=== PATIENT | female | born 1985 | race Caucasian/White ===

== ENCOUNTER 2020-12-10 09:29 | Outpatient (REF) | payer OTHER, SELFPAY ==
[2020-12-10 11:33] LABS: MANUAL DIFF FLAG NO
[2020-12-10 11:40] LABS: Basophils Percent Auto 0.4 % (0-2); Eosinophils Absolute Auto 0.1 X10*3/uL (0.0-0.4); Eosinophils Percent Auto 2.5 % (0-4); Hematocrit 42.3 % (37-47); Hemoglobin 13.7 g/dl (12.0-16.0); Imm Gran Abs Auto 0.01 X10*3/uL (0.00-0.03); Imm Gran Pct Auto 0.2 % (0.0-0.4); Lymphocytes Percent Auto 41.6 % (20-40); Mean Corpuscular HGB Conc 32.4 g/dl (31.0-35.0); Mean Corpuscular Volume 92.8 fL (80-98); Mean Platelet Volume 11.3 fL (9.4-12.3); Monocytes Absolute Auto 0.5 X10*3/uL (0.1-1.2); Monocytes Percent Auto 9.5 % (2-11); Neutrophils Absolute Auto 2.2 X10*3/uL (2.0-8.3); Neutrophils Percent Auto 45.8 % (45-73); Platelet Count 168 X10*3/uL (160-400); Red Blood Count 4.56 X10*6/uL (4.20-5.50); Red Cell Distribution Width 12.7 % (11.0-16.0); White Blood Count 4.9 X10*3/uL (4.8-10.8)
[2020-12-10 11:49] LABS: INTERNATIONAL NORM RATIO 1.1 (0.9-1.1); Prothrombin Time 13.4 SEC (10.8-13.0)
[2020-12-10 11:54] LABS: Alanine Aminotransferase 144 U/L (0-31); Albumin Level 4.1 g/dL (3.5-5.0); Alkaline Phosphatase 76 U/L (39-117); Anion Gap 12 (12-20); Aspartate Amino Transferase 72 U/L (5-31); Bilirubin Direct 0.2 mg/dL (0.0-0.5); Bilirubin Total 0.4 mg/dL (0.0-1.0); Blood Urea Nitrogen 12 mg/dL (9-16); Calcium 8.7 mg/dL (8.4-10.2); Carbon Dioxide 31 mmol/L (22-29); Chloride 102 mmol/L (96-108); Estimated Glomerular Filt Rate > 60; Gamma Glutamyl Transpeptidase 51 U/L (7-33); Glucose Fasting 82 mg/dL (60-99); Potassium 4.7 mmol/l (3.3-5.1); Sodium 140 mmol/L (135-145); Total Protein 7.1 g/dL (6.5-8.0)
[2020-12-10 12:00] LABS: Anion Gap 11 (12-20); Blood Urea Nitrogen 12 mg/dL (9-16); Calcium 9.1 mg/dL (8.4-10.2); Carbon Dioxide 31 mmol/L (22-29); Chloride 101 mmol/L (96-108); Cholesterol 192 mg/dL; Estimated Glomerular Filt Rate > 60; Glucose Fasting 83 mg/dL (60-99); HDL Cholesterol 68 mg/dL; LDL Cholesterol Calculated 110 mg/dl; Potassium 4.8 mmol/l (3.3-5.1); Sodium 138 mmol/L (135-145); Triglycerides 73 mg/dL
[2020-12-10 12:09] LABS: HIV AB/AG Nonreactive (Nonreactive); HIV Num 1 0.09 S/CO (0.00-0.99)
[2020-12-10 12:11] LABS: HBsAGNum1 0.16 S/CO (0.00-0.99); Hepatitis B Surface Antigen Negative (Negative)
[2020-12-10 12:22] LABS: TSH reflex Free T4 1.62 mIU/mL (0.32-4.0)
[2020-12-12 07:33] LABS: Hepatitis A Antibody IgG REACTIVE (Nonreactive)
== END 2020-12-10 09:30 | disposition home or self-care (01) ==
LOC: HO.HMGCLDS 09:29
PROVIDERS: PCP Internal Medicine; Visit Provider Internal Medicine
DX: F11.20 Opioid dependence, uncomplicated (principal)
CPT/HCPCS: 36415; 80048; 80053; 80061; 80076; 82248; 82977; 84443; 85025; 85610; 86708; 87340; 87389; 87522

== ENCOUNTER → 2021-02-12 14:17 | Outpatient (BNVA) | payer OTHER, SELFPAY | PROVIDERS: PCP Internal Medicine; Visit Provider Nurse Practitioner ==

== ENCOUNTER 2021-02-19 14:38 | Outpatient (REF) | payer OTHER, SELFPAY ==
--- NOTE | ~2021-02-19 | US_ITS ---
EXAMINATION: US COMPLETE ABDOMEN WITH LIVER ELASTOGRAPHY CLINICAL INFORMATION: B18.2 - Chronic viral hepatitis C. Age 35. COMPARISON: None. TECHNIQUE: Real-time imaging of the abdominal viscera. Noninvasive ultrasound liver fibrosis assessment is performed using Jac ElastPQ point quantification shear wave elastography (pSWE) with a C5-2 MHz transducer. Multiple elastography samples are obtained. FINDINGS: PANCREAS: The visualized pancreas is normal in size and contour and echogenicity. The pancreatic tail and distal body are obscured by bowel gas and not completely imaged. No visible pancreatic ductal distention. ABDOMINAL AORTA: The proximal, middle, and distal aortic segments are normal in caliber. INFERIOR VENA CAVA: Visualized portions are normal. LIVER: The liver is normal in size and smooth in contour. The parenchymal echogenicity is within normal. No definite hepatic steatosis. There is no visible focal hepatic parenchymal lesion or intrahepatic ductal dilatation. The right lobe measures 16.2 cm in length. The left lobe measures 10.0 cm in length. Portal flow is towards the liver (hepatopetal). Shear wave liver elastography median stiffness is 1.81 m/s (reference: normal median stiffness is 1.3 m/s or less). IQR/median stiffness to assess sampling precision is 0.08 (reference: good quality data set is IQR/median stiffness of 0.15 or less). GALLBLADDER: Normal. The gallbladder is physiologically distended without evidence of stones, sludge, polyps, wall thickening or pericholecystic fluid. COMMON BILE DUCT: Normal in caliber measuring 0.5 cm in diameter. RIGHT KIDNEY: Normal. No hydronephrosis. No renal calculi or focal parenchymal lesions. The kidney measures 11.0 cm in maximum dimension. LEFT KIDNEY: Normal. No hydronephrosis. No renal calculi or focal parenchymal lesions. The kidney measures 11.9 cm in maximum dimension. SPLEEN: Normal. The spleen measures 12.5 cm in maximum dimension. FREE FLUID: None. US/US abdomen comp w elastography IMPRESSION: 1. Liver normal in size and smooth in contour. No visible hepatic parenchymal lesion. 2. Portal flow towards the liver. Spleen normal in size. No ascites. 3. Liver elastography: Measurements are suggestive of compensated advanced chronic liver disease but need further test for confirmation. REFERENCE: Society of Radiologists in Ultrasound Liver Stiffness Thresholds (2019): LIVER STIFFNESS THRESHOLDS: *Liver Stiffness equal or less than 1.3 m/s: High probability of being normal. *Liver Stiffness less than 1.7 m/s: In the absence of other known clinical signs, rules out compensated advanced chronic liver disease. *Liver Stiffness 1.7-2.1 m/s: Suggestive of compensated advanced chronic liver disease but need further test for confirmation. *Liver Stiffness over 2.1 m/s: Rules in compensated advanced chronic liver disease. *Liver Stiffness over 2.4 m/s: Suggestive of clinically significant portal hypertension. QUALITY OF DATA SET: *IQR/Median value equal or less than 0.15 implies a quality data set. *IQR/Median value over 0.15 implies a poor quality data set. SIGNIFICANT CHANGE FROM PRIOR EXAM: Significant change if liver stiffness measurement is 10% or greater from prior exam. OTHER CONSIDERATIONS: The stage of liver fibrosis may be overestimated in the setting of acute hepatitis, liver inflammation, elevated liver function tests, hepatic vascular congestion, obstructive cholestasis, non-fasting state, and infiltrative diseases such as amyloidosis and lymphoma. In some patients with NAFLD, the liver stiffness thresholds for compensated advanced chronic liver disease may be lower. In causes other than viral hepatitis and NAFLD, liver stiffness thresholds are not well established.
[2021-02-19 17:53] LABS: Ferritin 68 ng/mL (10-122)
[2021-02-20 08:35] LABS: HBS Num1 > 1000.00 mIU/mL (0-7.99); HBc Num1 0.08 S/CO (0.00-0.79); Hepatitis B Core Antibody Nonreactive (Nonreactive); ~Hepatitis B Surface Antibody REACTIVE (Nonreactive)
[2021-02-20 11:52] LABS: Alpha Fetoprotein 5.1 ng/mL
[2021-02-20 13:27] LABS: Anti Nuclear Antibody Screen NEGATIVE (NEGATIVE)
[2021-02-21 11:47] LABS: Mitochondrial Antibodies NEGATIVE (NEGATIVE)
[2021-02-25 12:36] LABS: Smooth Muscle Antibody <20 U (<20)
[2021-02-27 11:07] LABS: Hepatitis C Genotype 3
== END 2021-02-19 14:39 | disposition home or self-care (01) ==
LOC: HO.US 14:38
PROVIDERS: PCP Internal Medicine; Visit Provider Nurse Practitioner
DX: B18.2 Chronic viral hepatitis C (principal)
CPT/HCPCS: 36415; 76705; 76981; 82105; 82728; 86038; 86039; 86255; 86256; 86704; 86706; 87902

== ENCOUNTER → 2021-02-28 09:03 | Outpatient (BNVA) | payer OTHER, SELFPAY | PROVIDERS: PCP Internal Medicine; Visit Provider Nurse Practitioner ==

== ENCOUNTER → 2021-04-03 13:16 | Outpatient (BNVA) | payer OTHER, SELFPAY | PROVIDERS: Visit Provider Nurse Practitioner ==

== ENCOUNTER 2021-04-26 09:10 | Outpatient (REF) | payer OTHER, SELFPAY ==
[2021-04-26 10:04] LABS: MANUAL DIFF FLAG NO
[2021-04-26 10:20] LABS: Basophils Percent Auto 0.3 % (0-2); Eosinophils Absolute Auto 0.1 X10*3/uL (0.0-0.4); Eosinophils Percent Auto 0.9 % (0-4); Hematocrit 43.2 % (37-47); Hemoglobin 14.5 g/dl (12.0-16.0); Imm Gran Abs Auto 0.02 X10*3/uL (0.00-0.03); Imm Gran Pct Auto 0.3 % (0.0-0.4); Lymphocytes Percent Auto 24.8 % (20-40); Mean Corpuscular HGB Conc 33.6 g/dl (31.0-35.0); Mean Corpuscular Volume 89.4 fL (80-98); Mean Platelet Volume 10.8 fL (9.4-12.3); Monocytes Absolute Auto 0.7 X10*3/uL (0.1-1.2); Monocytes Percent Auto 8.3 % (2-11); Neutrophils Absolute Auto 5.2 X10*3/uL (2.0-8.3); Neutrophils Percent Auto 65.4 % (45-73); Platelet Count 200 X10*3/uL (160-400); Red Blood Count 4.83 X10*6/uL (4.20-5.50); Red Cell Distribution Width 12.7 % (11.0-16.0); White Blood Count 7.9 X10*3/uL (4.8-10.8)
[2021-04-26 10:42] LABS: Alanine Aminotransferase 24 U/L (0-31); Albumin Level 4.2 g/dL (3.5-5.0); Alkaline Phosphatase 81 U/L (39-117); Anion Gap 13 (12-20); Aspartate Amino Transferase 15 U/L (5-31); Bilirubin Total 0.7 mg/dL (0.0-1.0); Blood Urea Nitrogen 10 mg/dL (9-16); Calcium 9.1 mg/dL (8.4-10.2); Carbon Dioxide 19 mmol/L (22-29); Chloride 109 mmol/L (96-108); Estimated Glomerular Filt Rate > 60; Glucose Random 124 mg/dL (60-115); Sodium 137 mmol/L (135-145); Total Protein 7.5 g/dL (6.5-8.0)
[2021-04-28 13:52] LABS: HCV Log PCR <1.18 DETECTED Log IU/mL (NOT DETECTED); HepC Viral Load <15 DETECTED IU/mL (NOT DETECTED)
[2021-05-10 12:16] LABS: FIB-ALT 20 U/L (6-29); FIB-Alpha-2-Macroglobulin 275 mg/dL (106-279); FIB-Apolipoprotein A1 173 mg/dL (101-198); FIB-GGT 28 U/L (3-50); FIB-Haptoglobin 106 mg/dL (43-212); FIB-Total Bilirubin 0.6 mg/dL (0.2-1.2); Liver Fibrosis Score 0.19; Liver Fibrosis Stage F0; Nec Inflam Act Grade A0; Nec Inflam Act Score 0.07
== END 2021-04-26 09:11 | disposition home or self-care (01) ==
LOC: HO.LAB 09:10
PROVIDERS: PCP Internal Medicine; Visit Provider Nurse Practitioner
DX: B18.2 Chronic viral hepatitis C (principal)
CPT/HCPCS: 36415; 80053; 81596; 85025; 87522

== ENCOUNTER 2022-01-02 11:01 | Inpatient (IN) | payer OTHER, SELFPAY ==
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
--- NOTE | 2022-01-02 15:09 | PM.EVENT ---
Event Note Date of Service: 01/02/22 Event Note: attempted to see patient at 3:10 pm today accompanied with RN to do medical history and physical however patient declined to be seen since she feels somebody is here to kill her, made several attempts to engage her however she became more agitated therefore left the room. reviewed patient med rec patient has history of hepatitis-C and substance abuse no new labs available
--- NOTE | 2022-01-02 15:13 | PC.NURSE ---
Pt lying in bed, secondary to mental status, pt refused to participate in admission process, refused V/S's, refused to meet with med consult MD Dr Pina (pt from another outside hospital).
[2022-01-02] MEDS: diphenhydrAMINE HCL 25 MG TABLET 50 MG PO (16:00)
[2022-01-02] MEDS: HaloperidoL 5 MG TABLET PO (16:01)
[2022-01-02] MEDS: LORazepam 1 MG TABLET PO (16:01)
[2022-01-02 16:24] VITALS: BP 123/78; PULSE 69; RESP 18; TEMP 35.8; O2SAT 100
[2022-01-02 17:03] VITALS: BMI 48.4
[2022-01-02 18:00] VITALS: BP 128/82; PULSE 74; RESP 18; TEMP 36.1; O2SAT 100
[2022-01-02] MEDS: OLANZapine 10 MG TABLET PO (20:44)
[2022-01-02] MEDS: Gabapentin 600 MG TABLET PO (20:45)
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
[2022-01-03 08:45] VITALS: BP 164/55; PULSE 65; TEMP 37.2
[2022-01-03] MEDS: Gabapentin 600 MG TABLET PO ×3 (09:00→20:33)
[2022-01-03] MEDS: OLANZapine 10 MG TABLET PO ×2 (09:00→20:33)
[2022-01-03 09:11] LABS: Cholesterol 164 mg/dL; HDL Cholesterol 40 mg/dL; LDL Cholesterol Calculated 105 mg/dl; Triglycerides 95 mg/dL
[2022-01-03 09:14] LABS: Estimated Average Glucose 103 mg/dL; Hemoglobin A1c % 5.2 %
[2022-01-03 09:32] LABS: Free T4 (Free Thyroxine) 0.95 ng/dL (0.71-1.85)
[2022-01-03 10:08] LABS: Folate 14.6 ng/mL (> or = 4.0); Vitamin B12 347 pg/mL (200-900)
--- NOTE | 2022-01-03 15:36 | PM.EVENT ---
Event Note Date of Service: 01/03/22 Event Note: Addiction Note: Chart reviewed, including documentation from transferring facility. Patient with reported history of OUD, and Suboxone treatment most recently 09/2021 UDS at hospital was negative for any opioids including, buprenorphine, methadone, or fentanyl. At admission to other facility she denied any recent opioid use Currently patient is displaying symptoms of psychosis and not appropriate to eval for ELVIN treatment at this time. No evidence or concern for acute withdrawal at this time. Discussed with attending provider, and will follow up once symptoms more stable.
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
[2022-01-03 18:00] VITALS: BP 121/78; PULSE 69; RESP 18; TEMP 35.9; O2SAT 99
[2022-01-04] MEDS: OLANZapine 10 MG TABLET PO ×2 (08:54→21:18)
[2022-01-04] MEDS: Gabapentin 600 MG TABLET PO ×3 (08:54→21:18)
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
[2022-01-04 16:30] VITALS: BP 101/57; PULSE 97; TEMP 36.8
[2022-01-05] MEDS: Gabapentin 600 MG TABLET PO ×3 (08:16→21:09)
[2022-01-05] MEDS: OLANZapine 10 MG TABLET PO ×2 (08:16→21:14)
[2022-01-05] MEDS: Nicotine 21 MG PATCH.TD24 TRANSDERMA (08:16)
--- NOTE | 2022-01-05 14:54 | P.PNPSI_ITS ---
Subjective Subjective Date of Service: 01/05/22 Reason For Visit: Major Depression/SI Interim History: Patient seen and discussed with team. 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 Sleep is okay. Pt refers to herself with the pronound we. States we get hungry a lot, we're glad that there are crackers here. Energy is okay, sleeping less today. Not going to groups because she says everybody thinks I was a racist because I was in the [facility] in a past life. Pt is unkempt, poor hygiene, says we're thinking about taking a shower but she is scared people are gonna wanna steal our clothes and she is nervous about doing laundry. States ativans and poisonous haldol helps with the demons. In the milieu, patient is safe, somewhat more visible in the unit, bizarre in behavior. Denies SI/SIB/HI upon inquiry. Denies irritability or assaultive ideation. Says she feels safe. Medication Compliance: Yes Side effects from medications: No Attending Groups: No Review of Systems Acute medical concerns: No Medical Review of Systems: unchanged Mental Status Exam Mental Status Exam Narrative: Patient Appearance:?Fatigued Patient Orientation:?Person and Situation Level of Consciousness:?Drowsy, Sedated and Alert Patient Behavior:?Guarded, Talkative, Cooperative, Suspicious, Anxious, Fearful, Resistive to Care, Avoidant, Fatigued, Distractible, Isolative, Good Eye Contact and Poor Eye Contact Mood Description:?Suspicious and Withdrawn Affect Description:?Suspicious, Withdrawn and Flat Patient Cognition Impaired:?No Ability to Follow Directions:?Fair Speech Pattern:?Spontaneous Speech, Rambling and Soft-Spoken Memory Description:?Remote Impaired and Episodic Impaired Hallucinations:?Auditory Delusions:?Paranoid Ideation Perceptual Disturbances:?Depersonalization and Derealization Thought Process:?Illogical, Distracted and Evasive Thought Content:?positive for Flight of Ideas, positive for Racing, positive for Loose Associations and positive for Suicidal Ideation Depressive Symptoms:?Increased Anxiety, Increased Irritability, Hopelessness, Unhappiness, Thoughts of /Suicide and Difficulty Concentrating Abnormal Motor Activity Signs and Symptoms:?Restlessness Judgment:?Poor Diagnostics Vital Signs (24Hr): Vital Signs - 24 hr 01/04/22 16:30 Temperature 98.2 F Pulse Rate 97 Blood Pressure 101/57 L BMI result Verdana 4 Body Mass Index Verdana 4 48.4 Verdana 4 Verdana 4 Medications Medications Current Medications Acetaminophen (Acetaminophen 325 Mg Tablet) 650 mg PO Q6H PRN PRN Reason: Headache/Pain Mild Scale (1-3) Al Hydroxide/Mg Hydroxide (Magnesium Hydrox/Alum Hydrox 30 Ml Oral.Susp) 30 ml PO Q6H PRN PRN Reason: Heartburn/Nausea Clonidine HCl (Clonidine Hcl 0.1 Mg Tablet) 0.1 mg PO TID PRN; Protocol PRN Reason: anxiety Diphenhydramine HCl (Diphenhydramine Hcl 25 Mg Tablet) 50 mg PO Q4H PRN PRN Reason: agitation, aggression Last Admin: 01/02/22 16:00 Dose: 50 mg Documented by: Gabapentin (Gabapentin 600 Mg Tablet) 600 mg PO TID [facility] Last Admin: 01/05/22 14:29 Dose: 600 mg Documented by: Haloperidol (Haloperidol 5 Mg Tablet) 5 mg PO Q4H PRN PRN Reason: psychotic agitation aggression Last Admin: 01/02/22 16:01 Dose: 5 mg Documented by: Hydroxyzine HCl (Hydroxyzine Hcl 25 Mg Tablet) 25 mg PO BEDTIME PRN PRN Reason: Anxiety Hydroxyzine HCl (Hydroxyzine Hcl 50 Mg Tablet) 50 mg PO Q6H PRN PRN Reason: Anxiety Lorazepam (Lorazepam 1 Mg Tablet) 1 mg PO Q4H PRN PRN Reason: agiation Last Admin: 01/02/22 16:01 Dose: 1 mg Documented by: Magnesium Hydroxide (Milk Of Magnesia 30 Ml Oral.Susp) 30 ml PO DAILY PRN PRN Reason: Constipation Nicotine (Nicotine 21 Mg Patch.Td24) 21 mg TRANSDERMA DAILY [facility] Last Admin: 01/05/22 08:16 Dose: 21 mg Documented by: Nicotine Polacrilex (Nicotine Polacrilex 2 Mg Gum) 4 mg BUCCAL Q1H PRN PRN Reason: Nicotine Cravings Olanzapine (Olanzapine 10 Mg Tablet) 10 mg PO BID [facility] Last Admin: 01/05/22 08:16 Dose: 10 mg Documented by: Trazodone HCl (Trazodone Hcl 50 Mg Tablet) 50 mg PO BEDTIME PRN PRN Reason: Insomnia Allergies Allergies Allergy/AdvReac Type Severity Reaction Status Date / Time No Known Allergies Allergy Verified 04/03/21 13:22 Assessment & Plan Assessment & Plan (1) PTSD (post-traumatic stress disorder): Status: Acute Code(s): F43.10 - Post-traumatic stress disorder, unspecified (2) Mood disorder with psychosis: Status: Acute Code(s): F39 - Unspecified mood [affective] disorder (3) Polysubstance abuse: Status: Acute Code(s): F19.10 - Other psychoactive substance abuse, uncomplicated Plan 36 yo female, admitted in transfer from [facility], with a history of developmental trauma, PTSD, Depression, Anxiety, ELVIN. Crisis team reports chronic mood disorder, substance abuse and homelessness are major issues. Reported suicide attempt 2/2 via ingestion of cyanide-verbalizing SI, HI to grandmother due to psychotic thought process-believing grandmother placed a chip inside her. Pt today is a poor historian-guarded, rhyming at times, not wanting to provide much information. Plan: Diagnostics Collateral contacts Begin Olanzapine 10 mg bid Continue Clonidine, Gabapentin Aftercare/Discharge planning when stable. 2/5: continue olanzapine and monitor for benefit 2/6: Pt is somewhat more visible and alert, overall pleasant but delusional, psychotic, and bizarre. Sleeping at night. I spent minutes with the patient and/or on the patient floor today, greater than?50% of which was spent counseling/coordinating care. Reason for contiued inpatient stay Substantial Risk for: inability to function, rapid decompensation and med/psych decompensation
[2022-01-05] MEDS: LORazepam 1 MG TABLET PO (16:39)
[2022-01-05] MEDS: HaloperidoL 5 MG TABLET PO (16:39)
[2022-01-05 16:40] VITALS: BP 131/74; PULSE 113; TEMP 36.3
[2022-01-06 06:00] VITALS: BP 119/62; PULSE 90; RESP 14; TEMP 36.7; O2SAT 99
[2022-01-06] MEDS: OLANZapine 10 MG TABLET PO (08:17)
[2022-01-06] MEDS: Gabapentin 600 MG TABLET PO (08:17)
[2022-01-06] MEDS: Nicotine 21 MG PATCH.TD24 TRANSDERMA (08:18)
--- NOTE | 2022-01-06 15:27 | HO.PSYCHPN ---
Subjective Subjective Date of Service: 01/06/22 Reason For Visit: Major Depression/SI Subjective Notes: Section 12B Healthcare Proxy: No Guardianship: No Medical Problems Affecting Mental Status: No Interim History: Attempted to meet with Nicolas gonzalez 3. She refused all attempts. Cam ARMIJO did make contact with [facility]. Situation was explained to Bonnie Patel who declined to provide any information. Will file for civil commitment on 11/06. Medication Compliance: Intermittent Side effects from medications: No Attending Groups: No Review of Systems Acute medical concerns: No Medical Review of Systems: unchanged Review of Systems Reports behavioral changes Psychiatric: Reports abnormal sleep pattern, Reports behavioral changes, Reports difficulty concentrating, Reports auditory hallucinations, Reports irritability, Reports anhedonia, Reports mood swings, Reports paranoia, Reports visual hallucinations, Reports hallucinations and Reports suicidal ideation (denies) Mental Status Exam Mental Status Exam Patient Appearance: Fatigued Patient Orientation: Person Level of Consciousness: Sedated Patient Behavior: Guarded, Suspicious and Poor Eye Contact Mood Description: Suspicious and Withdrawn Affect Description: Suspicious and Withdrawn Ability to Follow Directions: Poor Speech Pattern: Spontaneous Speech Memory Description: Remote Impaired and Episodic Impaired Hallucinations: Auditory and Visual Delusions: Being Controlled, Paranoid Ideation, Grandiose and Present Perceptual Disturbances: Depersonalization, Derealization and Hallucinations Thought Process: Illogical and Distracted Thought Content: positive for Thought Blocking and positive for Tangential Depressive Symptoms: Diff. Making Decisions and Sleeping More Than Usual Judgement: Poor Diagnostics Vital Signs (24Hr): Vital Signs - 24 hr 01/05/22 16:40 01/06/22 06:00 Temperature 97.3 F 98.0 F Pulse Rate 113 H 90 Respiratory Rate 14 Blood Pressure 131/74 119/62 Pulse Oximetry 99 BMI result Body Mass Index 48.4 Medications Medications Current Medications Acetaminophen (Acetaminophen 325 Mg Tablet) 650 mg PO Q6H PRN PRN Reason: Headache/Pain Mild Scale (1-3) Al Hydroxide/Mg Hydroxide (Magnesium Hydrox/Alum Hydrox 30 Ml Oral.Susp) 30 ml PO Q6H PRN PRN Reason: Heartburn/Nausea Clonidine HCl (Clonidine Hcl 0.1 Mg Tablet) 0.1 mg PO TID PRN; Protocol PRN Reason: anxiety Diphenhydramine HCl (Diphenhydramine Hcl 25 Mg Tablet) 50 mg PO Q4H PRN PRN Reason: agitation, aggression Last Admin: 01/02/22 16:00 Dose: 50 mg Documented by: Gabapentin (Gabapentin 600 Mg Tablet) 600 mg PO TID [facility] Last Admin: 01/06/22 08:17 Dose: 600 mg Documented by: Haloperidol (Haloperidol 5 Mg Tablet) 5 mg PO Q4H PRN PRN Reason: psychotic agitation aggression Last Admin: 01/05/22 16:39 Dose: 5 mg Documented by: Hydroxyzine HCl (Hydroxyzine Hcl 25 Mg Tablet) 25 mg PO BEDTIME PRN PRN Reason: Anxiety Hydroxyzine HCl (Hydroxyzine Hcl 50 Mg Tablet) 50 mg PO Q6H PRN PRN Reason: Anxiety Lorazepam (Lorazepam 1 Mg Tablet) 1 mg PO Q4H PRN PRN Reason: agiation Last Admin: 01/05/22 16:39 Dose: 1 mg Documented by: Magnesium Hydroxide (Milk Of Magnesia 30 Ml Oral.Susp) 30 ml PO DAILY PRN PRN Reason: Constipation Nicotine (Nicotine 21 Mg Patch.Td24) 21 mg TRANSDERMA DAILY [facility] Last Admin: 01/06/22 08:18 Dose: 21 mg Documented by: Nicotine Polacrilex (Nicotine Polacrilex 2 Mg Gum) 4 mg BUCCAL Q1H PRN PRN Reason: Nicotine Cravings Olanzapine (Olanzapine 10 Mg Tablet) 10 mg PO BID [facility] Last Admin: 01/06/22 08:17 Dose: 10 mg Documented by: Trazodone HCl (Trazodone Hcl 50 Mg Tablet) 50 mg PO BEDTIME PRN PRN Reason: Insomnia Allergies Allergies Allergy/AdvReac Type Severity Reaction Status Date / Time No Known Allergies Allergy Verified 04/03/21 13:22 Assessment & Plan Assessment & Plan (1) PTSD (post-traumatic stress disorder): Status: Acute Code(s): F43.10 - Post-traumatic stress disorder, unspecified (2) Mood disorder with psychosis: Status: Acute Code(s): F39 - Unspecified mood [affective] disorder (3) Polysubstance abuse: Status: Acute Code(s): F19.10 - Other psychoactive substance abuse, uncomplicated Plan 36 yo female, admitted in transfer from [facility], with a history of developmental trauma, PTSD, Depression, Anxiety, ELVIN. Crisis team reports chronic mood disorder, substance abuse and homelessness are major issues. Reported suicide attempt 2/2 via ingestion of cyanide-verbalizing SI, HI to grandmother due to psychotic thought process-believing grandmother placed a chip inside her. Pt today is a poor historian-guarded, rhyming at times, not wanting to provide much information. Plan: Diagnostics Collateral contacts Begin Olanzapine 10 mg bid Continue Clonidine, Gabapentin Aftercare/Discharge planning when stable. 01/04: continue olanzapine and monitor for benefit 01/06/22: Will file for civil commitment on 01/07/22. I spent 35 minutes with the patient and/or on the patient floor today, greater than?50% of which was spent counseling/coordinating care. Informed Consent: does not understand Reason for contiued inpatient stay Substantial Risk for: harm to self, harm to others, inability to function and rapid decompensation
[2022-01-07 06:10] VITALS: BP 130/80; PULSE 84; RESP 16; TEMP 36.1; O2SAT 97
[2022-01-07] MEDS: Nicotine 21 MG PATCH.TD24 TRANSDERMA (09:17)
[2022-01-07] MEDS: OLANZapine 10 MG TABLET PO ×2 (09:18→19:47)
[2022-01-07] MEDS: Gabapentin 600 MG TABLET PO ×3 (09:18→19:46)
[2022-01-07 16:25] VITALS: BP 118/60; PULSE 89; RESP 16; TEMP 36.2; O2SAT 97
--- NOTE | 2022-01-07 16:58 | HO.PSYCHPN ---
Subjective Subjective Date of Service: 01/07/22 Reason For Visit: Major Depression/SI Subjective Notes: Conditional Voluntary Interim History: Pt signed a Section X today and a three day notice. She was visable in milieu self dialoguing most of the time. She agreed to meet with tw for 5-10 only. She reports she is homeless and has been on a housing list for ~3 years. She reports her guardian is her grandmother, Maite Patten and grandfather Nawaf Patten. Grandfather has cancer and is treated at [facility] in [place], [place] Pt asked that we call and attempt to find both. She was given the number for [facility] as well [phone]. She declined signing a MIRIAM for DM and expressed fear of DM. She reports she has attended several addiction programs and [facility] in [place], where she is interested in returning. Cam ARMIJO received notification from pts insurance that she carries diagnoses of MDD, ADHD, PTSD, Alcohol and Opiate Use Disorders. Recent in pt admits [facility]-Dec 14-, [place] Oct 2021, [place] 10/16-. Pt would like to [facility] [place] and I need as much Ativan as you can provide. Responding to internal stimuli when in milieu-auditory, visual with delusional and paranoid content as well. TDN to 01/10/22. Medication Compliance: Yes Side effects from medications: No Attending Groups: No Review of Systems Acute medical concerns: No Medical Review of Systems: unchanged Review of Systems Reports behavioral changes Psychiatric: Reports behavioral changes, Reports difficulty concentrating, Reports auditory hallucinations, Reports anhedonia, Reports mood swings, Reports paranoia, Reports visual hallucinations, Reports hallucinations and Reports suicidal ideation Mental Status Exam Mental Status Exam Patient Orientation: Person Level of Consciousness: Alert Patient Behavior: Guarded, Talkative, Suspicious, Wandering, Anxious, Distractible, Good Eye Contact and Impulsive Mood Description: Suspicious, Constricted, Labile, Apprehensive and Expansive Affect Description: Suspicious Ability to Follow Directions: Fair Speech Pattern: Perseverating and Spontaneous Speech Memory Description: Remote Impaired and Episodic Impaired Hallucinations: Auditory and Visual Delusions: Being Controlled, Paranoid Ideation, Grandiose and Present Perceptual Disturbances: Depersonalization, Derealization and Hallucinations Thought Process: Illogical and Distracted Thought Content: positive for Circumstantial, positive for Thought Blocking, positive for Tangential and positive for Suicidal Ideation Depressive Symptoms: Diff. Making Decisions, Sleeping More Than Usual and Thoughts of /Suicide Abnormal Motor Activity Signs and Symptoms: Restlessness Judgement: Poor Diagnostics Vital Signs (24Hr): Vital Signs - 24 hr 01/07/22 06:10 01/07/22 16:25 Temperature 97 F 97.1 F Pulse Rate 84 89 Respiratory Rate 16 16 Blood Pressure 130/80 118/60 Pulse Oximetry 97 97 BMI result Body Mass Index 48.4 Medications Medications Current Medications Acetaminophen (Acetaminophen 325 Mg Tablet) 650 mg PO Q6H PRN PRN Reason: Headache/Pain Mild Scale (1-3) Al Hydroxide/Mg Hydroxide (Magnesium Hydrox/Alum Hydrox 30 Ml Oral.Susp) 30 ml PO Q6H PRN PRN Reason: Heartburn/Nausea Clonidine HCl (Clonidine Hcl 0.1 Mg Tablet) 0.1 mg PO TID PRN; Protocol PRN Reason: anxiety Diphenhydramine HCl (Diphenhydramine Hcl 25 Mg Tablet) 50 mg PO Q4H PRN PRN Reason: agitation, aggression Last Admin: 01/02/22 16:00 Dose: 50 mg Documented by: Gabapentin (Gabapentin 600 Mg Tablet) 600 mg PO TID [facility] Last Admin: 01/07/22 14:52 Dose: 600 mg Documented by: Haloperidol (Haloperidol 5 Mg Tablet) 5 mg PO Q4H PRN PRN Reason: psychotic agitation aggression Last Admin: 01/05/22 16:39 Dose: 5 mg Documented by: Hydroxyzine HCl (Hydroxyzine Hcl 25 Mg Tablet) 25 mg PO BEDTIME PRN PRN Reason: Anxiety Hydroxyzine HCl (Hydroxyzine Hcl 50 Mg Tablet) 50 mg PO Q6H PRN PRN Reason: Anxiety Lorazepam (Lorazepam 1 Mg Tablet) 1 mg PO Q4H PRN PRN Reason: agiation Last Admin: 01/05/22 16:39 Dose: 1 mg Documented by: Magnesium Hydroxide (Milk Of Magnesia 30 Ml Oral.Susp) 30 ml PO DAILY PRN PRN Reason: Constipation Nicotine (Nicotine 21 Mg Patch.Td24) 21 mg TRANSDERMA DAILY [facility] Last Admin: 01/07/22 09:17 Dose: 21 mg Documented by: Nicotine Polacrilex (Nicotine Polacrilex 2 Mg Gum) 4 mg BUCCAL Q1H PRN PRN Reason: Nicotine Cravings Olanzapine (Olanzapine 10 Mg Tablet) 10 mg PO BID [facility] Last Admin: 01/07/22 09:18 Dose: 10 mg Documented by: Trazodone HCl (Trazodone Hcl 50 Mg Tablet) 50 mg PO BEDTIME PRN PRN Reason: Insomnia Allergies Allergies Allergy/AdvReac Type Severity Reaction Status Date / Time No Known Allergies Allergy Verified 04/03/21 13:22 Assessment & Plan Assessment & Plan (1) PTSD (post-traumatic stress disorder): Status: Acute Code(s): F43.10 - Post-traumatic stress disorder, unspecified (2) Mood disorder with psychosis: Status: Acute Code(s): F39 - Unspecified mood [affective] disorder (3) Polysubstance abuse: Status: Acute Code(s): F19.10 - Other psychoactive substance abuse, uncomplicated Plan 36 yo female, admitted in transfer from [facility], with a history of developmental trauma, PTSD, Depression, Anxiety, ELVIN. Crisis team reports chronic mood disorder, substance abuse and homelessness are major issues. Reported suicide attempt 01/01 via ingestion of cyanide-verbalizing SI, HI to grandmother due to psychotic thought process-believing grandmother placed a chip inside her. Pt today is a poor historian-guarded, rhyming at times, not wanting to provide much information. Plan: Diagnostics Collateral contacts Begin Olanzapine 10 mg bid Continue Clonidine, Gabapentin Aftercare/Discharge planning when stable. 01/04: continue olanzapine and monitor for benefit 01/06/22: Will file for civil commitment on 01/07/22. 01/07/22: Pt has signed Section X, then filed TDN. Increase Olanzapine to 15 mg bid I spent 25 minutes with the patient and/or on the patient floor today, greater than?50% of which was spent counseling/coordinating care. Patient educated on: therapeutic strategies Informed Consent: does not understand Reason for contiued inpatient stay Substantial Risk for: harm to self, inability to function, rapid decompensation and med/psych decompensation
[2022-01-08 08:37] VITALS: BP 109/62; PULSE 95; TEMP 37.2; O2SAT 97
[2022-01-08] MEDS: OLANZapine 10 MG TABLET PO ×2 (09:10→20:04)
[2022-01-08] MEDS: Gabapentin 600 MG TABLET PO ×3 (09:10→20:04)
[2022-01-08] MEDS: Nicotine 21 MG PATCH.TD24 TRANSDERMA (09:10)
--- NOTE | 2022-01-08 17:15 | P.PNPSI_ITS ---
Subjective Subjective Date of Service: 01/08/22 Reason For Visit: Major Depression/SI Interim History: Patient seen and discussed with team. Patient evaluated this morning and upon interview she reports I am doing so good. Going to groups now, went to art group. Says her sleep is great. When asked about questions or concerns, pt states she is only concerned about terrorism in the [facility]. Says she had a Patriotic week. Appetite is good. She is future oriented, discussed wanting to go to [facility] and also wanting to move in with her grandparents in [place]. Denies hallucinations, that has subsided. Denies SE on medication, no EPS, feels limber like gumby. In the milieu, patient is safe in behavior, encouraged to shower and attend to hygiene. Denies SI/SIB/HI upon inquiry. Denies irritability or assaultive ideation. Says she feels safe. Medication Compliance: Yes Side effects from medications: No Attending Groups: Yes Review of Systems Acute medical concerns: No Medical Review of Systems: unchanged Mental Status Exam Mental Status Exam Narrative: Patient Orientation:?Person Level of Consciousness:?Alert Patient Behavior:?Guarded, Talkative, Suspicious, Wandering, Anxious, Distractible, Good Eye Contact and Impulsive Mood Description:?Suspicious, Constricted, Labile, Apprehensive and Expansive Affect Description:?Suspicious Ability to Follow Directions:?Fair Speech Pattern:?Perseverating and Spontaneous Speech Memory Description:?Remote Impaired and Episodic Impaired Hallucinations:?Auditory and Visual Delusions:?Being Controlled, Paranoid Ideation, Grandiose and Present Perceptual Disturbances:?Depersonalization, Derealization and Hallucinations Thought Process:?Illogical and Distracted Thought Content:?positive for Circumstantial, positive for Thought Blocking, positive for Tangential and positive for Suicidal Ideation Depressive Symptoms:?Diff. Making Decisions, Sleeping More Than Usual and Thoughts of /Suicide Abnormal Motor Activity Signs and Symptoms:?Restlessness Judgement:?Poor Diagnostics Vital Signs (24Hr): Vital Signs - 24 hr 01/08/22 08:37 Temperature 98.9 F Pulse Rate 95 Blood Pressure 109/62 Pulse Oximetry 97 BMI result Body Mass Index 48.4 Medications Medications Current Medications Acetaminophen (Acetaminophen 325 Mg Tablet) 650 mg PO Q6H PRN PRN Reason: Headache/Pain Mild Scale (1-3) Al Hydroxide/Mg Hydroxide (Magnesium Hydrox/Alum Hydrox 30 Ml Oral.Susp) 30 ml PO Q6H PRN PRN Reason: Heartburn/Nausea Clonidine HCl (Clonidine Hcl 0.1 Mg Tablet) 0.1 mg PO TID PRN; Protocol PRN Reason: anxiety Diphenhydramine HCl (Diphenhydramine Hcl 25 Mg Tablet) 50 mg PO Q4H PRN PRN Reason: agitation, aggression Last Admin: 01/02/22 16:00 Dose: 50 mg Documented by: Gabapentin (Gabapentin 600 Mg Tablet) 600 mg PO TID [facility] Last Admin: 01/08/22 14:43 Dose: 600 mg Documented by: Haloperidol (Haloperidol 5 Mg Tablet) 5 mg PO Q4H PRN PRN Reason: psychotic agitation aggression Last Admin: 01/05/22 16:39 Dose: 5 mg Documented by: Hydroxyzine HCl (Hydroxyzine Hcl 25 Mg Tablet) 25 mg PO BEDTIME PRN PRN Reason: Anxiety Hydroxyzine HCl (Hydroxyzine Hcl 50 Mg Tablet) 50 mg PO Q6H PRN PRN Reason: Anxiety Lorazepam (Lorazepam 1 Mg Tablet) 1 mg PO Q4H PRN PRN Reason: agiation Last Admin: 01/05/22 16:39 Dose: 1 mg Documented by: Magnesium Hydroxide (Milk Of Magnesia 30 Ml Oral.Susp) 30 ml PO DAILY PRN PRN Reason: Constipation Nicotine (Nicotine 21 Mg Patch.Td24) 21 mg TRANSDERMA DAILY [facility] Last Admin: 01/08/22 09:10 Dose: 21 mg Documented by: Nicotine Polacrilex (Nicotine Polacrilex 2 Mg Gum) 4 mg BUCCAL Q1H PRN PRN Reason: Nicotine Cravings Olanzapine (Olanzapine 10 Mg Tablet) 10 mg PO BID [facility] Last Admin: 01/08/22 09:10 Dose: 10 mg Documented by: Trazodone HCl (Trazodone Hcl 50 Mg Tablet) 50 mg PO BEDTIME PRN PRN Reason: Insomnia Allergies Allergies Allergy/AdvReac Type Severity Reaction Status Date / Time No Known Allergies Allergy Verified 04/03/21 13:22 Assessment & Plan Assessment & Plan (1) PTSD (post-traumatic stress disorder): Status: Acute Code(s): F43.10 - Post-traumatic stress disorder, unspecified (2) Mood disorder with psychosis: Status: Acute Code(s): F39 - Unspecified mood [affective] disorder (3) Polysubstance abuse: Status: Acute Code(s): F19.10 - Other psychoactive substance abuse, uncomplicated Plan 36 yo female, admitted in transfer from [facility], with a history of developmental trauma, PTSD, Depression, Anxiety, ELVIN. Crisis team reports chronic mood disorder, substance abuse and homelessness are major issues. Reported suicide attempt 2/2 via ingestion of cyanide-verbalizing SI, HI to grandmother due to psychotic thought process-believing grandmother placed a chip inside her. Pt today is a poor historian-guarded, rhyming at times, not wanting to provide much information. Plan: Diagnostics Collateral contacts Begin Olanzapine 10 mg bid Continue Clonidine, Gabapentin Aftercare/Discharge planning when stable. 01/04: continue olanzapine and monitor for benefit 01/06/22: Will file for civil commitment on 01/07/22. 01/07/22: Pt has signed Section X, then filed TDN. Increase Olanzapine to 15 mg bid 01/08/22: Tolerating medications well, denies SE, will continue to monitor for benefit I spent minutes with the patient and/or on the patient floor today, greater than?50% of which was spent counseling/coordinating care. Reason for contiued inpatient stay Substantial Risk for: inability to function, rapid decompensation and med/psych decompensation
[2022-01-08 18:00] VITALS: BP 142/75; PULSE 98; TEMP 36.1; O2SAT 99
[2022-01-08] MEDS: LORazepam 1 MG TABLET PO (20:04)
--- NOTE | 2022-01-08 20:57 | PC.NURSE ---
TW approached patient re:signing of release of information for sister Julisa. Patient stated, my sister is a no good piece of shit who wants me commited to this hospital for six months. When asked if there was anyone else she would like to release information to she responded, My grammy but I don't need to because she can contact me through the chip in my head . Patient also refused to sign Safety Tool and Treatment Plan.
[2022-01-09 06:00] VITALS: BP 121/64; PULSE 94; RESP 16; TEMP 36.6; O2SAT 98
[2022-01-09 07:00] VITALS: BMI 40.1
[2022-01-09] MEDS: OLANZapine 10 MG TABLET PO ×2 (08:30→20:21)
[2022-01-09] MEDS: Gabapentin 600 MG TABLET PO ×3 (08:30→20:21)
[2022-01-09] MEDS: Nicotine 21 MG PATCH.TD24 TRANSDERMA (08:45)
[2022-01-09] MEDS: LORazepam 1 MG TABLET PO ×2 (08:45→16:10)
--- NOTE | 2022-01-09 14:29 | HO.PSYCHPN ---
Subjective Subjective Date of Service: 01/09/22 Reason For Visit: Major Depression/SI Subjective Notes: 3 Day (retracted) Interim History: Three day notice retracted. Pt learned today that her grandfather 01/03/22. She would like assist traveling to [place] for services and to return to her home where a majority of her family resides. Discussed continuing to work on mood sx and having pt leave next week for [place]. She agreed and retracted her three day notice. Medication Compliance: Yes Side effects from medications: No Attending Groups: No Review of Systems Acute medical concerns: No Medical Review of Systems: unchanged Review of Systems Reports behavioral changes Psychiatric: Reports behavioral changes, Reports difficulty concentrating, Reports auditory hallucinations, Reports anhedonia, Reports mood swings, Reports paranoia, Reports visual hallucinations, Reports hallucinations and Reports suicidal ideation Mental Status Exam Mental Status Exam Patient Orientation: Person Level of Consciousness: Alert Patient Behavior: Guarded, Talkative, Suspicious, Wandering, Anxious, Distractible, Good Eye Contact and Impulsive Mood Description: Suspicious, Constricted, Labile, Apprehensive and Expansive Affect Description: Suspicious Ability to Follow Directions: Fair Speech Pattern: Perseverating and Spontaneous Speech Memory Description: Remote Impaired and Episodic Impaired Hallucinations: Auditory and Visual Delusions: Being Controlled, Paranoid Ideation, Grandiose and Present Perceptual Disturbances: Depersonalization, Derealization and Hallucinations Thought Process: Illogical and Distracted Thought Content: positive for Circumstantial, positive for Thought Blocking, positive for Tangential and positive for Suicidal Ideation Depressive Symptoms: Diff. Making Decisions, Sleeping More Than Usual and Thoughts of /Suicide Abnormal Motor Activity Signs and Symptoms: Restlessness Judgement: Poor Diagnostics Vital Signs (24Hr): Vital Signs - 24 hr 01/08/22 18:00 01/09/22 06:00 Temperature 97.0 F 97.9 F Pulse Rate 98 94 Respiratory Rate 16 Blood Pressure 142/75 H 121/64 Pulse Oximetry 99 98 BMI result Body Mass Index 40.1 Medications Medications Current Medications Acetaminophen (Acetaminophen 325 Mg Tablet) 650 mg PO Q6H PRN PRN Reason: Headache/Pain Mild Scale (1-3) Al Hydroxide/Mg Hydroxide (Magnesium Hydrox/Alum Hydrox 30 Ml Oral.Susp) 30 ml PO Q6H PRN PRN Reason: Heartburn/Nausea Clonidine HCl (Clonidine Hcl 0.1 Mg Tablet) 0.1 mg PO TID PRN; Protocol PRN Reason: anxiety Diphenhydramine HCl (Diphenhydramine Hcl 25 Mg Tablet) 50 mg PO Q4H PRN PRN Reason: agitation, aggression Last Admin: 01/02/22 16:00 Dose: 50 mg Documented by: Gabapentin (Gabapentin 600 Mg Tablet) 600 mg PO TID [facility] Last Admin: 01/09/22 14:07 Dose: 600 mg Documented by: Haloperidol (Haloperidol 5 Mg Tablet) 5 mg PO Q4H PRN PRN Reason: psychotic agitation aggression Last Admin: 01/05/22 16:39 Dose: 5 mg Documented by: Hydroxyzine HCl (Hydroxyzine Hcl 25 Mg Tablet) 25 mg PO BEDTIME PRN PRN Reason: Anxiety Hydroxyzine HCl (Hydroxyzine Hcl 50 Mg Tablet) 50 mg PO Q6H PRN PRN Reason: Anxiety Lorazepam (Lorazepam 1 Mg Tablet) 1 mg PO Q4H PRN PRN Reason: agiation Last Admin: 01/09/22 08:45 Dose: 1 mg Documented by: Magnesium Hydroxide (Milk Of Magnesia 30 Ml Oral.Susp) 30 ml PO DAILY PRN PRN Reason: Constipation Nicotine (Nicotine 21 Mg Patch.Td24) 21 mg TRANSDERMA DAILY [facility] Last Admin: 01/09/22 08:45 Dose: 21 mg Documented by: Nicotine Polacrilex (Nicotine Polacrilex 2 Mg Gum) 4 mg BUCCAL Q1H PRN PRN Reason: Nicotine Cravings Olanzapine (Olanzapine 10 Mg Tablet) 10 mg PO BID [facility] Last Admin: 01/09/22 08:30 Dose: 10 mg Documented by: Trazodone HCl (Trazodone Hcl 50 Mg Tablet) 50 mg PO BEDTIME PRN PRN Reason: Insomnia Allergies Allergies Allergy/AdvReac Type Severity Reaction Status Date / Time No Known Allergies Allergy Verified 04/03/21 13:22 Assessment & Plan Assessment & Plan (1) PTSD (post-traumatic stress disorder): Status: Acute Code(s): F43.10 - Post-traumatic stress disorder, unspecified (2) Mood disorder with psychosis: Status: Acute Code(s): F39 - Unspecified mood [affective] disorder (3) Polysubstance abuse: Status: Acute Code(s): F19.10 - Other psychoactive substance abuse, uncomplicated Plan 36 yo female, admitted in transfer from [facility], with a history of developmental trauma, PTSD, Depression, Anxiety, ELVIN. Crisis team reports chronic mood disorder, substance abuse and homelessness are major issues. Reported suicide attempt 01/01 via ingestion of cyanide-verbalizing SI, HI to grandmother due to psychotic thought process-believing grandmother placed a chip inside her. Pt today is a poor historian-guarded, rhyming at times, not wanting to provide much information. Plan: Diagnostics Collateral contacts Begin Olanzapine 10 mg bid Continue Clonidine, Gabapentin Aftercare/Discharge planning when stable. 01/04: continue olanzapine and monitor for benefit 01/06/22: Will file for civil commitment on 01/07/22. 01/07/22: Pt has signed Section X, then filed TDN. Increase Olanzapine to 15 mg bid 01/09/22: Pt has retracted TDN today. Continue current regime, assist pt in travel to [place] for grandfather 01/24. I spent 25 minutes with the patient and/or on the patient floor today, greater than?50% of which was spent counseling/coordinating care. Patient educated on: therapeutic strategies Informed Consent: understands and further education needed Reason for contiued inpatient stay Substantial Risk for: harm to self, harm to others, inability to function and rapid decompensation
[2022-01-09 18:00] VITALS: BP 135/81; PULSE 112; RESP 16; TEMP 36.6; O2SAT 98
[2022-01-10 07:56] VITALS: BP 109/81; PULSE 74; TEMP 36.3; O2SAT 98
[2022-01-10] MEDS: Nicotine 21 MG PATCH.TD24 TRANSDERMA (08:29)
[2022-01-10] MEDS: OLANZapine 7.5 MG TABLET 15 MG PO ×2 (08:30→19:47)
[2022-01-10] MEDS: Gabapentin 600 MG TABLET PO ×3 (08:30→19:47)
--- NOTE | 2022-01-10 10:45 | HO.PSYCHPN ---
Subjective Subjective Date of Service: 01/10/22 Reason For Visit: Major Depression/SI Subjective Notes: Conditional Voluntary Interim History: Pt tolerating Olanzapine increase. Team is attempting to assist pt in stabilizing so she may return to [place] to be with family for grandfather's . Team reports paranoia, delusional content at times. 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 If pt does not appear at her court date they will consider re-trial on charges. She was ordered to stay away from the person she was charged with committing identity fraud and ordered to mental health treatment. She is able to travel out of state. Per probation pt's father was involved in a motorcycle gang, has a criminal history and is residing in [place]. Pt recently was with Katty. Medication Compliance: Yes Side effects from medications: No Attending Groups: No Review of Systems Acute medical concerns: No Medical Review of Systems: unchanged Review of Systems Reports behavioral changes Psychiatric: Reports behavioral changes, Reports difficulty concentrating, Reports auditory hallucinations, Reports anhedonia, Reports mood swings, Reports paranoia, Reports visual hallucinations, Reports hallucinations and Reports suicidal ideation Mental Status Exam Mental Status Exam Patient Orientation: Person Level of Consciousness: Alert Patient Behavior: Guarded, Talkative, Suspicious, Wandering, Anxious, Distractible, Good Eye Contact and Impulsive Mood Description: Suspicious, Constricted, Labile, Apprehensive and Expansive Affect Description: Suspicious Ability to Follow Directions: Fair Speech Pattern: Perseverating and Spontaneous Speech Memory Description: Remote Impaired and Episodic Impaired Hallucinations: Auditory and Visual Delusions: Being Controlled, Paranoid Ideation, Grandiose and Present Perceptual Disturbances: Depersonalization, Derealization and Hallucinations Thought Process: Illogical and Distracted Thought Content: positive for Circumstantial, positive for Thought Blocking, positive for Tangential and positive for Suicidal Ideation Depressive Symptoms: Diff. Making Decisions, Sleeping More Than Usual and Thoughts of /Suicide Abnormal Motor Activity Signs and Symptoms: Restlessness Judgement: Poor Diagnostics Vital Signs (24Hr): Vital Signs - 24 hr 01/09/22 18:00 01/10/22 07:56 Temperature 98 F 97.4 F Pulse Rate 112 H 74 Respiratory Rate 16 Blood Pressure 135/81 109/81 Pulse Oximetry 98 98 BMI result Body Mass Index 40.1 Medications Medications Current Medications Acetaminophen (Acetaminophen 325 Mg Tablet) 650 mg PO Q6H PRN PRN Reason: Headache/Pain Mild Scale (1-3) Al Hydroxide/Mg Hydroxide (Magnesium Hydrox/Alum Hydrox 30 Ml Oral.Susp) 30 ml PO Q6H PRN PRN Reason: Heartburn/Nausea Clonidine HCl (Clonidine Hcl 0.1 Mg Tablet) 0.1 mg PO TID PRN; Protocol PRN Reason: anxiety Diphenhydramine HCl (Diphenhydramine Hcl 25 Mg Tablet) 50 mg PO Q4H PRN PRN Reason: agitation, aggression Last Admin: 01/02/22 16:00 Dose: 50 mg Documented by: Gabapentin (Gabapentin 600 Mg Tablet) 600 mg PO TID [facility] Last Admin: 01/10/22 08:30 Dose: 600 mg Documented by: Haloperidol (Haloperidol 5 Mg Tablet) 5 mg PO Q4H PRN PRN Reason: psychotic agitation aggression Last Admin: 01/05/22 16:39 Dose: 5 mg Documented by: Hydroxyzine HCl (Hydroxyzine Hcl 25 Mg Tablet) 25 mg PO BEDTIME PRN PRN Reason: Anxiety Hydroxyzine HCl (Hydroxyzine Hcl 50 Mg Tablet) 50 mg PO Q6H PRN PRN Reason: Anxiety Lorazepam (Lorazepam 1 Mg Tablet) 1 mg PO Q4H PRN PRN Reason: agiation Last Admin: 01/09/22 16:10 Dose: 1 mg Documented by: Magnesium Hydroxide (Milk Of Magnesia 30 Ml Oral.Susp) 30 ml PO DAILY PRN PRN Reason: Constipation Nicotine (Nicotine 21 Mg Patch.Td24) 21 mg TRANSDERMA DAILY [facility] Last Admin: 01/10/22 08:29 Dose: 21 mg Documented by: Nicotine Polacrilex (Nicotine Polacrilex 2 Mg Gum) 4 mg BUCCAL Q1H PRN PRN Reason: Nicotine Cravings Olanzapine (Olanzapine 7.5 Mg Tablet) 15 mg PO BID [facility] Last Admin: 01/10/22 08:30 Dose: 15 mg Documented by: Trazodone HCl (Trazodone Hcl 50 Mg Tablet) 50 mg PO BEDTIME PRN PRN Reason: Insomnia Allergies Allergies Allergy/AdvReac Type Severity Reaction Status Date / Time No Known Allergies Allergy Verified 04/03/21 13:22 Assessment & Plan Assessment & Plan (1) PTSD (post-traumatic stress disorder): Status: Acute Code(s): F43.10 - Post-traumatic stress disorder, unspecified (2) Mood disorder with psychosis: Status: Acute Code(s): F39 - Unspecified mood [affective] disorder (3) Polysubstance abuse: Status: Acute Code(s): F19.10 - Other psychoactive substance abuse, uncomplicated Plan 36 yo female, admitted in transfer from [facility], with a history of developmental trauma, PTSD, Depression, Anxiety, ELVIN. Crisis team reports chronic mood disorder, substance abuse and homelessness are major issues. Reported suicide attempt 01/01 via ingestion of cyanide-verbalizing SI, HI to grandmother due to psychotic thought process-believing grandmother placed a chip inside her. Pt today is a poor historian-guarded, rhyming at times, not wanting to provide much information. Plan: Diagnostics Collateral contacts Begin Olanzapine 10 mg bid Continue Clonidine, Gabapentin Aftercare/Discharge planning when stable. 01/04: continue olanzapine and monitor for benefit 01/06/22: Will file for civil commitment on 01/07/22. 01/07/22: Pt has signed Section X, then filed TDN. Increase Olanzapine to 15 mg bid 01/09/22: Pt has retracted TDN today. Continue current regime, assist pt in travel to [place] for grandfather 01/24. 01/10/22: Continue current plan of care. I spent 15 minutes with the patient and/or on the patient floor today, greater than?50% of which was spent counseling/coordinating care. Informed Consent: further education needed Reason for contiued inpatient stay Substantial Risk for: harm to self, harm to others, inability to function and rapid decompensation
[2022-01-11] MEDS: Nicotine 21 MG PATCH.TD24 TRANSDERMA (08:51)
[2022-01-11] MEDS: OLANZapine 7.5 MG TABLET 15 MG PO ×2 (08:52→21:47)
[2022-01-11] MEDS: Gabapentin 600 MG TABLET PO ×3 (08:52→21:47)
[2022-01-11] MEDS: LORazepam 1 MG TABLET PO ×3 (09:07→21:51)
--- NOTE | 2022-01-11 11:56 | P.PNPSI_ITS ---
Subjective Subjective Date of Service: 01/11/22 Reason For Visit: Major Depression/SI Interim History: Haley describes feelings of grief today over the loss of her grandfather. She reports feeling upset that her grandmother invited her to the services. When she said she may not attend and return to her snf in [place], grandmother agreed, which she found hurtful. Accepting medication, denies SE, reports sleep and appetite are intact. Presents clearer and calmer today. Medication Compliance: Yes Side effects from medications: No Attending Groups: No Review of Systems Acute medical concerns: No Medical Review of Systems: unchanged Review of Systems Reports behavioral changes Psychiatric: Reports anxiety, Reports behavioral changes, Reports depression, Reports difficulty concentrating, Reports auditory hallucinations, Reports irritability, Reports mood swings and Reports suicidal ideation (denies) Mental Status Exam Mental Status Exam Patient Appearance: Appropriate Patient Orientation: Person, Place, Time and Situation Level of Consciousness: Alert Patient Behavior: Talkative, Anxious and Good Eye Contact Mood Description: Constricted, Labile and Expansive Patient Cognition Impaired: No Ability to Follow Directions: Fair Speech Pattern: Spontaneous Speech Memory Description: Remote Impaired and Episodic Impaired Thought Content: positive for Circumstantial and positive for Suicidal Ideation (denies) Depressive Symptoms: Sleeping More Than Usual Judgement: Fair Diagnostics Vital Signs (24Hr): BMI result Body Mass Index 40.1 Medications Medications Current Medications Acetaminophen (Acetaminophen 325 Mg Tablet) 650 mg PO Q6H PRN PRN Reason: Headache/Pain Mild Scale (1-3) Al Hydroxide/Mg Hydroxide (Magnesium Hydrox/Alum Hydrox 30 Ml Oral.Susp) 30 ml PO Q6H PRN PRN Reason: Heartburn/Nausea Clonidine HCl (Clonidine Hcl 0.1 Mg Tablet) 0.1 mg PO TID PRN; Protocol PRN Reason: anxiety Diphenhydramine HCl (Diphenhydramine Hcl 25 Mg Tablet) 50 mg PO Q4H PRN PRN Reason: agitation, aggression Last Admin: 01/02/22 16:00 Dose: 50 mg Documented by: Gabapentin (Gabapentin 600 Mg Tablet) 600 mg PO TID [facility] Last Admin: 01/11/22 08:52 Dose: 600 mg Documented by: Haloperidol (Haloperidol 5 Mg Tablet) 5 mg PO Q4H PRN PRN Reason: psychotic agitation aggression Last Admin: 01/05/22 16:39 Dose: 5 mg Documented by: Hydroxyzine HCl (Hydroxyzine Hcl 25 Mg Tablet) 25 mg PO BEDTIME PRN PRN Reason: Anxiety Hydroxyzine HCl (Hydroxyzine Hcl 50 Mg Tablet) 50 mg PO Q6H PRN PRN Reason: Anxiety Lorazepam (Lorazepam 1 Mg Tablet) 1 mg PO Q4H PRN PRN Reason: agiation Last Admin: 01/11/22 09:07 Dose: 1 mg Documented by: Magnesium Hydroxide (Milk Of Magnesia 30 Ml Oral.Susp) 30 ml PO DAILY PRN PRN Reason: Constipation Nicotine (Nicotine 21 Mg Patch.Td24) 21 mg TRANSDERMA DAILY [facility] Last Admin: 01/11/22 08:51 Dose: 21 mg Documented by: Nicotine Polacrilex (Nicotine Polacrilex 2 Mg Gum) 4 mg BUCCAL Q1H PRN PRN Reason: Nicotine Cravings Olanzapine (Olanzapine 7.5 Mg Tablet) 15 mg PO BID [facility] Last Admin: 01/11/22 08:52 Dose: 15 mg Documented by: Trazodone HCl (Trazodone Hcl 50 Mg Tablet) 50 mg PO BEDTIME PRN PRN Reason: Insomnia Allergies Allergies Allergy/AdvReac Type Severity Reaction Status Date / Time No Known Allergies Allergy Verified 04/03/21 13:22 Assessment & Plan Assessment & Plan (1) PTSD (post-traumatic stress disorder): Status: Acute Code(s): F43.10 - Post-traumatic stress disorder, unspecified (2) Mood disorder with psychosis: Status: Acute Code(s): F39 - Unspecified mood [affective] disorder (3) Polysubstance abuse: Status: Acute Code(s): F19.10 - Other psychoactive substance abuse, uncomplicated Plan 36 yo female, admitted in transfer from [facility], with a history of developmental trauma, PTSD, Depression, Anxiety, ELVIN. Crisis team reports chronic mood disorder, substance abuse and homelessness are major issues. Reported suicide attempt 2/2 via ingestion of cyanide-verbalizing SI, HI to grandmother due to psychotic thought process-believing grandmother placed a chip inside her. Pt today is a poor historian-guarded, rhyming at times, not wanting to provide much information. Plan: Diagnostics Collateral contacts Begin Olanzapine 10 mg bid Continue Clonidine, Gabapentin Aftercare/Discharge planning when stable. 01/04: continue olanzapine and monitor for benefit 01/06/22: Will file for civil commitment on 01/07/22. 01/07/22: Pt has signed Section X, then filed TDN. Increase Olanzapine to 15 mg bid 01/09/22: Pt has retracted TDN today. Continue current regime, assist pt in travel to [place] for grandfather 01/24. 01/10/22: Continue current plan of care. 01/11/22: Continue current plan of care. I spent 15 minutes with the patient and/or on the patient floor today, greater than?50% of which was spent counseling/coordinating care. Informed Consent: understands Reason for contiued inpatient stay Substantial Risk for: harm to self and rapid decompensation
[2022-01-12 06:00] VITALS: BP 91/50; PULSE 90; TEMP 36.1; O2SAT 96
[2022-01-12] MEDS: Nicotine 21 MG PATCH.TD24 TRANSDERMA (08:20)
[2022-01-12] MEDS: OLANZapine 7.5 MG TABLET 15 MG PO ×2 (08:21→19:54)
[2022-01-12] MEDS: Gabapentin 600 MG TABLET PO ×3 (08:21→19:54)
[2022-01-12] MEDS: LORazepam 1 MG TABLET PO ×2 (08:21→14:24)
--- NOTE | 2022-01-12 09:27 | HO.PSYCHPN ---
Subjective Subjective Date of Service: 01/12/22 Reason For Visit: Major Depression/SI Interim History: Isolative, with paranoia and delusions. Minimal interactions today. Medication Compliance: Yes Side effects from medications: No Attending Groups: No Review of Systems Acute medical concerns: No Medical Review of Systems: unchanged Review of Systems Reports behavioral changes Psychiatric: Reports abnormal sleep pattern, Reports anxiety, Reports behavioral changes, Reports depression, Reports difficulty concentrating, Reports auditory hallucinations, Reports hopelessness, Reports irritability, Reports anhedonia, Reports mood swings, Reports paranoia, Reports visual hallucinations, Reports hallucinations and Reports suicidal ideation (denies) Mental Status Exam Mental Status Exam Patient Appearance: Appropriate Patient Orientation: Person, Place, Time and Situation Level of Consciousness: Alert Patient Behavior: Guarded, Talkative, Suspicious, Anxious and Good Eye Contact Mood Description: Suspicious, Withdrawn, Constricted, Labile and Expansive Affect Description: Suspicious and Withdrawn Patient Cognition Impaired: No Ability to Follow Directions: Fair Speech Pattern: Spontaneous Speech Memory Description: Remote Impaired and Episodic Impaired Hallucinations: Auditory and Visual Delusions: Paranoid Ideation and Present Perceptual Disturbances: Depersonalization and Derealization Thought Process: Rumination Thought Content: positive for Circumstantial, positive for Perseveration, positive for Tangential and positive for Suicidal Ideation (denies) Depressive Symptoms: Diff. Making Decisions, Increased Irritability, Sleeping More Than Usual, Increased Fatigue, Loss of Energy and Difficulty Concentrating Judgement: Fair Diagnostics Vital Signs (24Hr): Vital Signs - 24 hr 01/12/22 06:00 Temperature 97 F Pulse Rate 90 Blood Pressure 91/50 L Pulse Oximetry 96 BMI result Body Mass Index 40.1 Medications Medications Current Medications Acetaminophen (Acetaminophen 325 Mg Tablet) 650 mg PO Q6H PRN PRN Reason: Headache/Pain Mild Scale (1-3) Al Hydroxide/Mg Hydroxide (Magnesium Hydrox/Alum Hydrox 30 Ml Oral.Susp) 30 ml PO Q6H PRN PRN Reason: Heartburn/Nausea Clonidine HCl (Clonidine Hcl 0.1 Mg Tablet) 0.1 mg PO TID PRN; Protocol PRN Reason: anxiety Diphenhydramine HCl (Diphenhydramine Hcl 25 Mg Tablet) 50 mg PO Q4H PRN PRN Reason: agitation, aggression Last Admin: 01/02/22 16:00 Dose: 50 mg Documented by: Gabapentin (Gabapentin 600 Mg Tablet) 600 mg PO TID [facility] Last Admin: 01/12/22 08:21 Dose: 600 mg Documented by: Haloperidol (Haloperidol 5 Mg Tablet) 5 mg PO Q4H PRN PRN Reason: psychotic agitation aggression Last Admin: 01/05/22 16:39 Dose: 5 mg Documented by: Hydroxyzine HCl (Hydroxyzine Hcl 25 Mg Tablet) 25 mg PO BEDTIME PRN PRN Reason: Anxiety Hydroxyzine HCl (Hydroxyzine Hcl 50 Mg Tablet) 50 mg PO Q6H PRN PRN Reason: Anxiety Lorazepam (Lorazepam 1 Mg Tablet) 1 mg PO Q4H PRN PRN Reason: agiation Last Admin: 01/12/22 08:21 Dose: 1 mg Documented by: Magnesium Hydroxide (Milk Of Magnesia 30 Ml Oral.Susp) 30 ml PO DAILY PRN PRN Reason: Constipation Nicotine (Nicotine 21 Mg Patch.Td24) 21 mg TRANSDERMA DAILY [facility] Last Admin: 01/12/22 08:20 Dose: 21 mg Documented by: Nicotine Polacrilex (Nicotine Polacrilex 2 Mg Gum) 4 mg BUCCAL Q1H PRN PRN Reason: Nicotine Cravings Olanzapine (Olanzapine 7.5 Mg Tablet) 15 mg PO BID [facility] Last Admin: 01/12/22 08:21 Dose: 15 mg Documented by: Trazodone HCl (Trazodone Hcl 50 Mg Tablet) 50 mg PO BEDTIME PRN PRN Reason: Insomnia Allergies Allergies Allergy/AdvReac Type Severity Reaction Status Date / Time No Known Allergies Allergy Verified 04/03/21 13:22 Assessment & Plan Assessment & Plan (1) PTSD (post-traumatic stress disorder): Status: Acute Code(s): F43.10 - Post-traumatic stress disorder, unspecified (2) Mood disorder with psychosis: Status: Acute Code(s): F39 - Unspecified mood [affective] disorder (3) Polysubstance abuse: Status: Acute Code(s): F19.10 - Other psychoactive substance abuse, uncomplicated Plan 36 yo female, admitted in transfer from [facility], with a history of developmental trauma, PTSD, Depression, Anxiety, ELVIN. Crisis team reports chronic mood disorder, substance abuse and homelessness are major issues. Reported suicide attempt 2/2 via ingestion of cyanide-verbalizing SI, HI to grandmother due to psychotic thought process-believing grandmother placed a chip inside her. Pt today is a poor historian-guarded, rhyming at times, not wanting to provide much information. Plan: Diagnostics Collateral contacts Begin Olanzapine 10 mg bid Continue Clonidine, Gabapentin Aftercare/Discharge planning when stable. 01/04: continue olanzapine and monitor for benefit 01/06/22: Will file for civil commitment on 01/07/22. 01/07/22: Pt has signed Section X, then filed TDN. Increase Olanzapine to 15 mg bid 01/09/22: Pt has retracted TDN today. Continue current regime, assist pt in travel to [place] for grandfather 01/24. 01/10/22: Continue current plan of care. 01/11/22: Continue current plan of care. 01/12/22: Continue current plan of care. I spent 25 minutes with the patient and/or on the patient floor today, greater than?50% of which was spent counseling/coordinating care. Informed Consent: further education needed Reason for contiued inpatient stay Substantial Risk for: harm to self, inability to function and rapid decompensation
[2022-01-12] MEDS: Nicotine Polacrilex 2 MG GUM 4 MG BUCCAL (17:09)
[2022-01-12 18:00] VITALS: BP 104/52; PULSE 101; RESP 16; TEMP 36.1; O2SAT 96
[2022-01-13 06:00] VITALS: BP 102/55; PULSE 98; RESP 18; TEMP 36.4; O2SAT 97
[2022-01-13] MEDS: Nicotine 21 MG PATCH.TD24 TRANSDERMA (08:21)
[2022-01-13] MEDS: Gabapentin 600 MG TABLET PO ×3 (08:22→20:10)
[2022-01-13] MEDS: OLANZapine 7.5 MG TABLET 15 MG PO ×2 (08:22→20:10)
[2022-01-13] MEDS: LORazepam 1 MG TABLET PO ×2 (08:22→14:35)
--- NOTE | 2022-01-13 15:43 | HO.PSYCHPN ---
Subjective Subjective Date of Service: 01/13/22 Reason For Visit: Major Depression/SI Interim History: Nicolas is asking about discharge. She plans to return to [facility] and will return on 01/15/22. She reports she has been invited to her grandfather's celebration of life service on 01/24, however she is unsure if she will attend. She asked appropriate questions regarding her discharge regarding referrals, prescription refills and transportation. She is reported to be self-dialoguing at times, however is alert, oriented, attentive and not responding to any internal stimuli during our meeting. Medication Compliance: Yes Side effects from medications: No Attending Groups: No Review of Systems Acute medical concerns: No Medical Review of Systems: unchanged Review of Systems Reports behavioral changes Psychiatric: Reports behavioral changes, Reports auditory hallucinations and Reports suicidal ideation (denies) Mental Status Exam Mental Status Exam Patient Appearance: Appropriate Patient Orientation: Person, Place, Time and Situation Level of Consciousness: Alert Patient Behavior: Talkative and Good Eye Contact Mood Description: Constricted Affect Description: Constricted Patient Cognition Impaired: No Ability to Follow Directions: Fair Speech Pattern: Spontaneous Speech Memory Description: Remote Impaired and Episodic Impaired Hallucinations: Auditory Perceptual Disturbances: Depersonalization and Derealization Thought Process: Rumination (grief) Thought Content: positive for Circumstantial, positive for Tangential and positive for Suicidal Ideation (denies) Depressive Symptoms: Diff. Making Decisions, Sleeping More Than Usual, Loss of Energy and Difficulty Concentrating Judgement: Good Diagnostics Vital Signs (24Hr): Vital Signs - 24 hr 01/12/22 18:00 01/13/22 06:00 Temperature 96.9 F 97.6 F Pulse Rate 101 H 98 Respiratory Rate 16 18 Blood Pressure 104/52 L 102/55 L Pulse Oximetry 96 97 BMI result Body Mass Index 40.1 Medications Medications Current Medications Acetaminophen (Acetaminophen 325 Mg Tablet) 650 mg PO Q6H PRN PRN Reason: Headache/Pain Mild Scale (1-3) Al Hydroxide/Mg Hydroxide (Magnesium Hydrox/Alum Hydrox 30 Ml Oral.Susp) 30 ml PO Q6H PRN PRN Reason: Heartburn/Nausea Clonidine HCl (Clonidine Hcl 0.1 Mg Tablet) 0.1 mg PO TID PRN; Protocol PRN Reason: anxiety Diphenhydramine HCl (Diphenhydramine Hcl 25 Mg Tablet) 50 mg PO Q4H PRN PRN Reason: agitation, aggression Last Admin: 01/02/22 16:00 Dose: 50 mg Documented by: Gabapentin (Gabapentin 600 Mg Tablet) 600 mg PO TID [facility] Last Admin: 01/13/22 14:35 Dose: 600 mg Documented by: Haloperidol (Haloperidol 5 Mg Tablet) 5 mg PO Q4H PRN PRN Reason: psychotic agitation aggression Last Admin: 01/05/22 16:39 Dose: 5 mg Documented by: Hydroxyzine HCl (Hydroxyzine Hcl 25 Mg Tablet) 25 mg PO BEDTIME PRN PRN Reason: Anxiety Hydroxyzine HCl (Hydroxyzine Hcl 50 Mg Tablet) 50 mg PO Q6H PRN PRN Reason: Anxiety Lorazepam (Lorazepam 1 Mg Tablet) 1 mg PO Q4H PRN PRN Reason: agiation Last Admin: 01/13/22 14:35 Dose: 1 mg Documented by: Magnesium Hydroxide (Milk Of Magnesia 30 Ml Oral.Susp) 30 ml PO DAILY PRN PRN Reason: Constipation Nicotine (Nicotine 21 Mg Patch.Td24) 21 mg TRANSDERMA DAILY [facility] Last Admin: 01/13/22 08:21 Dose: 21 mg Documented by: Nicotine Polacrilex (Nicotine Polacrilex 2 Mg Gum) 4 mg BUCCAL Q1H PRN PRN Reason: Nicotine Cravings Last Admin: 01/12/22 17:09 Dose: 4 mg Documented by: Olanzapine (Olanzapine 7.5 Mg Tablet) 15 mg PO BID [facility] Last Admin: 01/13/22 08:22 Dose: 15 mg Documented by: Trazodone HCl (Trazodone Hcl 50 Mg Tablet) 50 mg PO BEDTIME PRN PRN Reason: Insomnia Allergies Allergies Allergy/AdvReac Type Severity Reaction Status Date / Time No Known Allergies Allergy Verified 04/03/21 13:22 Assessment & Plan Assessment & Plan (1) PTSD (post-traumatic stress disorder): Status: Acute Code(s): F43.10 - Post-traumatic stress disorder, unspecified (2) Mood disorder with psychosis: Status: Acute Code(s): F39 - Unspecified mood [affective] disorder (3) Polysubstance abuse: Status: Acute Code(s): F19.10 - Other psychoactive substance abuse, uncomplicated Plan 36 yo female, admitted in transfer from [facility], with a history of developmental trauma, PTSD, Depression, Anxiety, ELVIN. Crisis team reports chronic mood disorder, substance abuse and homelessness are major issues. Reported suicide attempt 01/01 via ingestion of cyanide-verbalizing SI, HI to grandmother due to psychotic thought process-believing grandmother placed a chip inside her. Pt today is a poor historian-guarded, rhyming at times, not wanting to provide much information. Plan: Diagnostics Collateral contacts Begin Olanzapine 10 mg bid Continue Clonidine, Gabapentin Aftercare/Discharge planning when stable. 01/04: continue olanzapine and monitor for benefit 01/06/22: Will file for civil commitment on 01/07/22. 01/07/22: Pt has signed Section X, then filed TDN. Increase Olanzapine to 15 mg bid 01/09/22: Pt has retracted TDN today. Continue current regime, assist pt in travel to [place] for grandfather 01/24. 01/10/22: Continue current plan of care. 01/11/22: Continue current plan of care. 01/12/22: Continue current plan of care. 01/13/22: Discharge 01/15/22. Continue current regime. I spent 25 minutes with the patient and/or on the patient floor today, greater than?50% of which was spent counseling/coordinating care. Patient educated on: therapeutic strategies Informed Consent: understands Reason for contiued inpatient stay Substantial Risk for: harm to self, inability to function and rapid decompensation
[2022-01-13 18:14] VITALS: BP 116/64; PULSE 99; TEMP 37.2
[2022-01-14 06:00] VITALS: BP 110/58; PULSE 89; RESP 18; TEMP 36.3; O2SAT 97
[2022-01-14] MEDS: Gabapentin 600 MG TABLET PO ×3 (08:36→19:44)
[2022-01-14] MEDS: OLANZapine 7.5 MG TABLET 15 MG PO ×2 (08:36→19:44)
[2022-01-14] MEDS: LORazepam 1 MG TABLET PO ×2 (08:36→19:45)
--- NOTE | 2022-01-14 17:43 | P.PNPSI_ITS ---
Subjective Subjective Date of Service: 01/14/22 Reason For Visit: Major Depression/SI Interim History: Pt alert, oriented, asking appropriate questions regarding transfer to return to [facility]. Denies SI, HI. Isolative, states she is grieving loss of grandfather. Medicine review with Oemralberto in preparation for discharge. Medication Compliance: Yes Side effects from medications: No Attending Groups: No Review of Systems Acute medical concerns: No Medical Review of Systems: unchanged Review of Systems Reports behavioral changes Psychiatric: Reports behavioral changes, Reports mood swings, Reports homicidal ideation (denies) and Reports suicidal ideation (denies) Mental Status Exam Mental Status Exam Patient Appearance: Appropriate Patient Orientation: Person, Place, Time and Situation Level of Consciousness: Alert Patient Behavior: Talkative and Good Eye Contact Mood Description: Constricted Affect Description: Constricted Patient Cognition Impaired: No Ability to Follow Directions: Fair Speech Pattern: Spontaneous Speech Memory Description: Remote Impaired and Episodic Impaired Hallucinations: Auditory Perceptual Disturbances: Depersonalization and Derealization Thought Process: Rumination (grief) Thought Content: positive for Circumstantial, positive for Tangential and pos itive for Suicidal Ideation (denies) Judgement: Good Diagnostics Vital Signs (24Hr): Vital Signs - 24 hr 01/13/22 18:14 01/14/22 06:00 Temperature 99 F 97.4 F Pulse Rate 99 89 Respiratory Rate 18 Blood Pressure 116/64 110/58 L Pulse Oximetry 97 BMI result Body Mass Index 40.1 Medications Medications Current Medications Acetaminophen (Acetaminophen 325 Mg Tablet) 650 mg PO Q6H PRN PRN Reason: Headache/Pain Mild Scale (1-3) Al Hydroxide/Mg Hydroxide (Magnesium Hydrox/Alum Hydrox 30 Ml Oral.Susp) 30 ml PO Q6H PRN PRN Reason: Heartburn/Nausea Clonidine HCl (Clonidine Hcl 0.1 Mg Tablet) 0.1 mg PO TID PRN; Protocol PRN Reason: anxiety Diphenhydramine HCl (Diphenhydramine Hcl 25 Mg Tablet) 50 mg PO Q4H PRN PRN Reason: agitation, aggression Last Admin: 01/02/22 16:00 Dose: 50 mg Documented by: Gabapentin (Gabapentin 600 Mg Tablet) 600 mg PO TID [facility] Last Admin: 01/14/22 14:35 Dose: 600 mg Documented by: Haloperidol (Haloperidol 5 Mg Tablet) 5 mg PO Q4H PRN PRN Reason: psychotic agitation aggression Last Admin: 01/05/22 16:39 Dose: 5 mg Documented by: Hydroxyzine HCl (Hydroxyzine Hcl 25 Mg Tablet) 25 mg PO BEDTIME PRN PRN Reason: Anxiety Hydroxyzine HCl (Hydroxyzine Hcl 50 Mg Tablet) 50 mg PO Q6H PRN PRN Reason: Anxiety Lorazepam (Lorazepam 1 Mg Tablet) 1 mg PO DAILY PRN PRN Reason: agiation Magnesium Hydroxide (Milk Of Magnesia 30 Ml Oral.Susp) 30 ml PO DAILY PRN PRN Reason: Constipation Nicotine (Nicotine 21 Mg Patch.Td24) 21 mg TRANSDERMA DAILY [facility] Last Admin: 01/14/22 08:38 Dose: Not Given Documented by: Nicotine Polacrilex (Nicotine Polacrilex 2 Mg Gum) 4 mg BUCCAL Q1H PRN PRN Reason: Nicotine Cravings Last Admin: 01/12/22 17:09 Dose: 4 mg Documented by: Olanzapine (Olanzapine 7.5 Mg Tablet) 15 mg PO BID [facility] Last Admin: 01/14/22 08:36 Dose: 15 mg Documented by: Trazodone HCl (Trazodone Hcl 50 Mg Tablet) 50 mg PO BEDTIME PRN PRN Reason: Insomnia Allergies Allergies Allergy/AdvReac Type Severity Reaction Status Date / Time No Known Allergies Allergy Verified 04/03/21 13:22 Assessment & Plan Assessment & Plan (1) PTSD (post-traumatic stress disorder): Status: Acute Code(s): F43.10 - Post-traumatic stress disorder, unspecified (2) Mood disorder with psychosis: Status: Acute Code(s): F39 - Unspecified mood [affective] disorder (3) Polysubstance abuse: Status: Acute Code(s): F19.10 - Other psychoactive substance abuse, uncomplicated Plan 36 yo female, admitted in transfer from [facility], with a history of developmental trauma, PTSD, Depression, Anxiety, ELVIN. Crisis team reports chronic mood disorder, substance abuse and homelessness are major issues. Reported suicide attempt 2/2 via ingestion of cyanide-verbalizing SI, HI to grandmother due to psychotic thought process-believing grandmother placed a chip inside her. Pt today is a poor historian-guarded, rhyming at times, not wanting to provide much information. Plan: Diagnostics Collateral contacts Begin Olanzapine 10 mg bid Continue Clonidine, Gabapentin Aftercare/Discharge planning when stable. 01/04: continue olanzapine and monitor for benefit 01/06/22: Will file for civil commitment on 01/07/22. 01/07/22: Pt has signed Section X, then filed TDN. Increase Olanzapine to 15 mg bid 01/09/22: Pt has retracted TDN today. Continue current regime, assist pt in travel to [place] for grandfather 01/24. 01/10/22: Continue current plan of care. 01/11/22: Continue current plan of care. 01/12/22: Continue current plan of care. 01/13/22: Discharge 01/15/22. Continue current regime. 01/14/22: Continues on track for discharge. No changes in regime. I spent 20 minutes with the patient and/or on the patient floor today, greater than?50% of which was spent counseling/coordinating care. Patient educated on: medication risk/benefits Informed Consent: understands Reason for contiued inpatient stay Substantial Risk for: stable for discharge
[2022-01-15] MEDS: Nicotine 21 MG PATCH.TD24 TRANSDERMA (08:23)
[2022-01-15] MEDS: LORazepam 1 MG TABLET PO (08:23)
[2022-01-15] MEDS: Gabapentin 600 MG TABLET PO (08:23)
[2022-01-15] MEDS: OLANZapine 7.5 MG TABLET 15 MG PO (08:23)
--- NOTE | 2022-01-15 18:23 | PM.PSYDC ---
DS: Providers Provider Date of Service: 01/15/22 Date of admission: 01/02/22 11:01 Date of discharge: 01/15/22 Primary care physician: Shirley Garcia MD Admitting clinician: Isabel Poole Attending physician on admission: Geoffrey Rodriguez Consults: 01/02/22 11:25 Consult to Hospitalist Routine Consulting Provider: Hospitalist Reason For Exam: transfer from [facility] 01/02/22 15:27 Addiction Medicine Routine Consulting Provider: Bety Shelton Reason for consultation: Polysubstance addiction; Suboxone use Has provider been notified: No Attending physician on discharge: Geoffrey Rodriguez Discharging clinician: Isabel Poole DS: Diagnosis Discharge Diagnosis (1) Mood disorder with psychosis: Status: Acute (2) PTSD (post-traumatic stress disorder): Status: Acute (3) Polysubstance abuse: Status: Acute DS: Medications Discharge Medications Home Medications: Previous Rx's Medication Instructions Recorded gabapentin 600 mg tablet 600 mg PO TID #42 tab 01/15/22 gabapentin 600 mg tablet 600 mg PO TID #90 tab 01/15/22 nicotine (polacrilex) 2 mg gum 4 mg BUCCAL Q1H PRN #30 ea 01/15/22 nicotine 21 mg/24 hr daily 1 patch TRANSDERMAL DAILY #28 ea 01/15/22 transdermal patch nicotine 21 mg/24 hr daily 21 mg TRANSDERMAL DAILY #30 ea 01/15/22 transdermal patch olanzapine 15 mg tablet (Zyprexa) 15 mg PO BID #60 tab 01/15/22 Mental Status Exam Mental Status Exam Patient Appearance: Appropriate Patient Orientation: Person, Place, Time and Situation Level of Consciousness: Alert Patient Behavior: Talkative and Good Eye Contact Mood Description: Constricted Affect Description: Constricted Patient Cognition Impaired: No Ability to Follow Directions: Fair Speech Pattern: Spontaneous Speech Memory Description: Remote Impaired and Episodic Impaired Hallucinations: Auditory Perceptual Disturbances: Depersonalization and Derealization Thought Process: Rumination (grief) Thought Content: positive for Circumstantial, positive for Tangential and positive for Suicidal Ideation (denies) Judgement: Good DS: Summary Hospital Course Hospital Course: Admission to adult psychiatry to address symptoms of Bipolar disorder with psychosis, PTSD and polysubstance use. Care plan, medication regime and out patient plan of care prior to admission were reviewed. Education was provided regarding management of symptoms, medication and side effects. Nursing and social service worked with Nicolas on collateral contacts, care planning, education regarding management of symptoms, medications and discharge planning. Olanzapine and Gabapentin were initiated. Suboxone, Risperdal, Vyvanse and Trazodone were discontinued. Time spent discussing smoking cessation with patient: 3 to 10 minutes Status at Discharge Functional status at discharge: independent ambulation Overall status at discharge: patient is progressing back to baseline Time Spent with Patient Time attestation: Total time spent providing and/or coordinating discharge services: 35 Time spent: Greater than 30 minutes Discharge Plan Discharge Patient Disposition: Long-Term Discharge Diagnosis: PTSD Bipolar disorder with psychosis Polysubstance Abuse Referrals: [facility] [Other] - 1 Day (Patient needs to follow-up in person with [facility] to receive mental health services (psychiatry and therapy). Therapy and Psychiatry by self-referral per staff at [facility]. ) [facility] [Other] - 1 Week (Patient needs to self-present to care home to secure placement per instructions. ) Dr. Cj Ball [Other] - 02/07/22 9:30 am (Patient Primary Care Appointment with Dr. Ball at [facility].) Discharge Medications: New gabapentin 600 mg Tablet 600 mg PO TID Qty: 90 0RF nicotine (polacrilex) 2 mg Gum 4 mg buccal Q1H PRN (Reason: Nicotine Cravings) Qty: 30 0RF nicotine 21 mg/24 hr Patch 24 Hour 21 mg transdermal DAILY Qty: 30 0RF olanzapine [Zyprexa] 15 mg tablet 15 mg PO BID Qty: 60 0RF gabapentin 600 mg tablet 600 mg PO TID Qty: 42 1RF nicotine 21 mg/24 hr patch 24 hour 1 patch transdermal DAILY Qty: 28 0RF Discontinued buprenorphine-naloxone 8-2 mg tablet, sublingual 2 tab sublingual DAILY 0RF risperidone 1 mg tablet PO 0RF trazodone 50 mg tablet 50 mg PO BEDTIME 0RF Vyvanse 40 mg capsule 40 mg PO QAM 0RF Vyvanse 50 mg capsule 50 mg PO DAILY 0RF risperidone 1 mg tablet 1 mg PO DAILY 0RF sofosbuvir-velpatasvir [Epclusa] 400-100 mg tablet 1 tab PO DAILY 28 Days Qty: 28 2RF Rx Instructions: Take one tablet by mouth daily for 12 weeks total Discharge Orders: Discharge Order (Routine); Ordered 01/15/22 Ordered By: Isabel Poole Diet: advance to usual diet Activity on Discharge: As tolerated Stand Alone Forms: Patient Portal Discharge page, Community Support, Substance Abuse Outpt Detox Care Plan Goals: Mood stabilization Sobriety Health Concerns: Bipolar Disorder with psychosis PTSD Polysubstance Abuse Chronic Hepatitis C Plan of Treatment: Attend scheduled appointments Take medications as directed Assessment: non-suicidal, non-psychotic Discharge Date/Time: 01/15/22 14:02
== END 2022-01-15 14:02 | disposition home or self-care (01) | DRG 751 ==
PROVIDERS: Admitting Provider Psychiatry & Neurology Psychiatry; PCP Internal Medicine; Visit Provider Clinical Nurse Specialist Psychiatric/Mental Health, Adult
DX: F29 Unspecified psychosis not due to a substance or known physiological condition (principal); R45.851 Suicidal ideations; F39 Unspecified mood [affective] disorder; F19.10 Other psychoactive substance abuse, uncomplicated; F43.10 Post-traumatic stress disorder, unspecified; Z86.19 Personal history of other infectious and parasitic diseases; Z79.899 Other long term (current) drug therapy
CPT/HCPCS: 36415; 80061; 82607; 82746; 83036; 84439; 84443; Q0163

== ENCOUNTER 2023-12-05 09:00 | Emergency (ER) | payer OTHER, SELFPAY ==
[2023-12-05 09:32] VITALS: BP 112/79; PULSE 68; RESP 18; TEMP 36.8; O2SAT 96; BMI 45.1
--- NOTE | 2023-12-05 10:10 | ED.GENADULT ---
HPI - General Adult General Chief complaint: General Medical Stated complaint: Needs medication Time Seen by Provider: 12/05/23 10:10 Source: patient Mode of arrival: ambulatory Limitations: no limitations History of Present Illness HPI narrative: Patient is a 38 year old assigned female at with a history of methadone use presenting to the emergency department today for her methadone dose. Patient states that she is in the process of establishing with a new methadone clinic and has her last dose letter. Patient denies any dizziness, lightheadedness, abdominal pain, nausea, vomiting, fever, chills, blurry vision, double vision, loss of vision, chest pain, difficulty breathing, shortness of breath, back pain, night sweats, pain with urination, increased urinary frequency, increased urinary urgency, blood in her urine or stool, syncope or a near syncopal episode, recent trauma or falls, bowel incontinence, bladder incontinence, bowel retention, bladder retention, or any other complaints at this time. Relieving factors: none Exacerbating factors: none Associated symptoms: denies other symptoms Treatments prior to arrival: none Related Data Previous Rx's Medication Instructions Recorded gabapentin 600 mg tablet 600 mg PO TID #42 tabs 01/15/22 gabapentin 600 mg tablet 600 mg PO TID #90 tabs 01/15/22 nicotine (polacrilex) 2 mg gum 4 mg buccal Q1H PRN Nicotine 01/15/22 Cravings #30 ea nicotine 21 mg/24 hr daily 1 patch transdermal DAILY #28 ea 01/15/22 transdermal patch nicotine 21 mg/24 hr daily 21 mg transdermal DAILY #30 ea 01/15/22 transdermal patch olanzapine 15 mg tablet (Zyprexa) 15 mg PO BID #60 tabs 01/15/22 Allergies Allergy/AdvReac Type Severity Reaction Status Date / Time No Known Allergies Allergy Verified 12/05/23 09:30 Review of Systems Constitutional: Constitutional: Reports no additional constitutional complaints, Denies chills, Denies fever(s) and Denies night sweats Eyes: Eyes: Reports no additional eye complaints, Denies blurry vision, Denies change in vision, Denies diplopia, Denies eye discharge, Denies loss of vision and Denies eye pain ENT: Denies dizziness Cardiovascular: Cardiovascular: Reports no additional cardiovascular complaints, Denies chest pain, Denies lightheadedness, Denies Loss of Consciousness and Denies dyspnea Respiratory: Respiratory: Reports no additional respiratory complaints and Denies dyspnea Gastrointestinal: Gastrointestinal: Reports no additional gastrointestinal complaints, Denies abdominal pain, Denies melena, Denies hematochezia, Denies change in bowel habits and Denies change in stool character Genitourinary: Genitourinary: Denies hematuria, Denies urinary frequency, Denies dysuria, Denies urinary incontinence, Denies urinary hesitancy and Denies urinary urgency Musculoskeletal: Musculoskeletal: Reports no additional musculoskeletal complaints, Denies numbness and Denies tingling Neurologic: Denies dizziness, Denies loss of vision, Denies numbness and Denies tingling Psychiatric: Psychiatric: Reports no additional psychiatric complaints Endocrine: Endocrine: Reports no additional endocrine complaints Hematologic/Lymphatic: Hematologic/Lymphatic: Reports no additional hematologic/lymphatic complaints Allergic/Immunologic: Allergic/Immunologic: Reports no additional allergic/immunologic complaints PMFSH Past Medical History Attestation statement: The following information was validated with the patient. Source: old records reviewed and nursing notes reviewed Onset Date is defined in the Problem List Problems that require an onset date and time if occurred within 24 hrs of arrival to the ED Aortic Dissection and Rupture; Neurologic impairment; Cardiopulmonary Arrest; Endotracheal Intubation; Insertion or Replacement of Mechanical Circulatory Assist Device Medical History Polysubstance abuse Mood disorder with psychosis PTSD (post-traumatic stress disorder) Chronic active hepatitis Hepatitis C antibody positive in blood History of drug abuse Obesity Hep C w/ coma, chronic Family History Family History Father Diabetes Mother Diabetes Brother Asthma Social History Social History Household Members: None Alcohol intake: current Alcohol intake frequency: does not drink Patient Tobacco Use Status: Never used Tobacco Cigarettes Per Day: 10 Years Smoked: since age 20 e-Cigarette/Vaping Use: Never Used Advance Directives: No Advance Directives Information Provided: Yes service: No Current occupational status: unemployed Sexual orientation: Don't Know Physical Exam ED Vital Signs: Vital Signs - 24 hr 12/05/23 09:32 Temperature 98.3 F Pulse Rate 68 Respiratory Rate 18 Blood Pressure 112/79 Pulse Oximetry 96 Oxygen Delivery Method Room Air BMI result Body Mass Index 45.1 Const General: cooperative, no acute distress, alert and awake Nutritional Appearance: well nourished Orientation/consciousness: patient oriented x3 Limitations: no limitations HENMT Head: Yes normal to inspection and Yes atraumatic Ears: hearing grossly normal bilaterally and external ears normal General nose exam: Normal external nose present, no nasal discharge noted and no epistaxis Face and sinus: Yes normal facial exam, No abrasion and No laceration Mouth: Normal oral and palatal mucosa present, no drooling and no muffled voice Eyes General: appearance normal, both eyes and all related structures Periorbital: periorbital findings normal Eyelids: Yes eyelids normal Conjunctivae: conjunctivae normal Pupils: Equal, round and reactive pupils present EOM: EOMs intact bilaterally Neck Neck: Yes normal visual inspection, Yes full ROM and Yes no lymphadenopathy Chest Chest palpation & inspection: normal inspection of the chest Resp Effort & Inspection: normal respiratory effort and able to speak in complete sentences GI Inspection: Yes normal to inspection Neuro General: patient oriented x3 and moves all extremities Cranial nerves: Yes Equal, round and reactive pupils present Cognition (Neuro): normal cognition Motor exam (neuro): 5/5 motor strength present throughout Sensory Exam: Normal double simultaneous stimulation for sensation Coordination: [id number] test normal Extrem General: Yes normal to inspection, Yes full ROM and Yes capillary refill normal Psych Appearance: grossly normal Mental Status: mental status grossly normal Affect: normal affect Attitude: cooperative Thought process: Normal thought process present Thought content: Normal thought content present Insight: Good insight present (Psych) Medical Decision Making Medical Decision Making MDM Narrative: Patient is a 38 year old assigned male at with a history of methadone use presenting to the emergency department today for a methadone dose. Patient's physical exam was unremarkable. I explained my physical exam findings to the patient. I answered all questions asked by the patient. I stressed the importance of the patient taking her medication as prescribed. I stressed the importance of the patient following up with her primary care provider. I stressed the importance of the patient returning to the emergency department immediately if her symptoms were to worsen or if she were to develop any dizziness, shortness of breath, difficulty breathing, chest pain, blurry vision, loss of vision, nausea, vomiting, abdominal pain, fever, chills, back pain, or any other complaints. Patient verbalized agreement and understanding with this treatment plan and discharge. Differential Diagnosis Differential Diagnoses: The differential diagnosis associated with the presentation includes Methadone dose Methadone use Admission/Observation Consideration of admission/observation: Escalation of care including admission/observation considered Patient would have been admitted to the hospital had her clinical presentation warranted hospital admission. Discharge Plan Discharge Clinical Impression: Methadone dependence Patient Disposition: Home, Self-Care Additional Instructions: You cannot continue to return to the emergency department for methadone dosing. You may only come here for EMERGENCY methadone dosing. Follow up with your primary care provider. Return to the emergency department immediately if your symptoms worsen or if you develop any dizziness, shortness of breath, difficulty breathing, chest pain, blurry vision, loss of vision, nausea, vomiting, abdominal pain, fever, chills, back pain, or any other complaints. Prescriptions: No Action gabapentin 600 mg Tablet 600 mg PO TID Qty: 90 0RF nicotine (polacrilex) 2 mg Gum 4 mg buccal Q1H PRN (Reason: Nicotine Cravings) Qty: 30 0RF nicotine 21 mg/24 hr Patch 24 Hour 21 mg transdermal DAILY Qty: 30 0RF olanzapine [Zyprexa] 15 mg tablet 15 mg PO BID Qty: 60 0RF gabapentin 600 mg tablet 600 mg PO TID Qty: 42 1RF nicotine 21 mg/24 hr patch 24 hour 1 patch transdermal DAILY Qty: 28 0RF Referrals: [facility] [place] [facility] [Provider Group] (Call to get assistance with a methadone clinic.) [facility] [facility] [Provider Group] (Call to establish and follow up with a primary care provider. If you already have a primary care provider, please follow up with them.) [facility] [place] [facility] [place] [Provider Group] (Call to establish and follow up with a primary care provider. If you already have a primary care provider, please follow up with them.) [facility] [place] [facility],[place] [Provider Group] (Call to establish and follow up with a primary care provider. If you already have a primary care provider, please follow up with them.) Print Language: Belarusian
--- NOTE | 2023-12-05 10:26 | HE.PHANOTE ---
RE METHADONE PT HAS LAST DOSE LETTER FROM [facility]. PT GOT 70 MG, LAST DOSED 12/04/2023. MARV
== END 2023-12-05 11:00 | disposition home or self-care (01) ==
PROVIDERS: Emergency Provider Student in an Organized Health Care Education/Training Program
DX: F11.20 Opioid dependence, uncomplicated (principal)
CPT/HCPCS: 99282; 99283

== ENCOUNTER 2023-12-10 14:35 | Inpatient (IN) | payer OTHER, SELFPAY ==
[2023-12-10 14:45] VITALS: BP 153/90; PULSE 79; RESP 18; TEMP 36.6; O2SAT 98; BMI 44.9
--- NOTE | 2023-12-10 14:54 | ED.PSYCH ---
HPI - Psych General Chief Complaint: Psychiatric Symptoms Stated Complaint: si crisis Time Seen by Provider: 12/10/23 14:54 Related Data Previous Rx's Medication Instructions Recorded gabapentin 600 mg tablet 600 mg PO TID #42 tabs 01/15/22 gabapentin 600 mg tablet 600 mg PO TID #90 tabs 01/15/22 nicotine (polacrilex) 2 mg gum 4 mg buccal Q1H PRN Nicotine 01/15/22 Cravings #30 ea nicotine 21 mg/24 hr daily 1 patch transdermal DAILY #28 ea 01/15/22 transdermal patch nicotine 21 mg/24 hr daily 21 mg transdermal DAILY #30 ea 01/15/22 transdermal patch olanzapine 15 mg tablet (Zyprexa) 15 mg PO BID #60 tabs 01/15/22 Allergies Allergy/AdvReac Type Severity Reaction Status Date / Time alprazolam [From Xanax] Allergy Rash Verified 12/10/23 14:44 [facility] Past Medical History Onset Date is defined in the Problem List Problems that require an onset date and time if occurred within 24 hrs of arrival to the ED Aortic Dissection and Rupture; Neurologic impairment; Cardiopulmonary Arrest; Endotracheal Intubation; Insertion or Replacement of Mechanical Circulatory Assist Device Medical History Polysubstance abuse Mood disorder with psychosis PTSD (post-traumatic stress disorder) Chronic active hepatitis Hepatitis C antibody positive in blood History of drug abuse Obesity Hep C w/ coma, chronic Family History Family History Father Diabetes Mother Diabetes Brother Asthma Social History Social History Household Members: None Alcohol intake: current Alcohol intake frequency: does not drink Patient Tobacco Use Status: Never used Tobacco Cigarettes Per Day: 10 Years Smoked: since age 20 e-Cigarette/Vaping Use: Never Used service: No Current occupational status: unemployed Sexual orientation: Don't Know Physical Exam Vital Signs: Vital Signs: Last Vital Signs Temp 97.8 F 12/10/23 14:45 Pulse 79 12/10/23 14:45 Resp 18 12/10/23 14:45 BP 153/90 H 12/10/23 14:45 Pulse Ox 98 12/10/23 14:45 O2 Del Method Room Air 12/10/23 14:45 BMI result Body Mass Index 44.9 Course Course Course Narrative: Feeling suicidal/homicidal for 'some time now' with plans to overdose on her medications and states that she has a 'stock pile'. She also states that she wants to kill her sister as she is 'driving me crazy'. Reports that she has been having visual and auditory hallucinations and believes that she is in the [place]. Also reports n/v/d/ and generalized abdominal pain. RME: Diaphoretic, A&Ox4, MAEx4, LS CTA, HR RRR RME completed by [facility] Medical Decision Making Lab Data 12/10/23 15:07 12/10/23 15:07 Labs: Lab Results 12/10/23 Range/Units 15:07 WBC 7.3 (4.8-10.8) X10*3/uL RBC 4.92 (4.20-5.50) X10*6/uL Hgb 14.8 (12.0-16.0) g/dl Hct 43.9 (37.0-47.0) % MCV 89.2 (80.0-98.0) fL MCH 30.1 (27.0-33.0) pg MCHC 33.7 (31.0-35.0) g/dl RDW 13.1 (11.0-16.0) % Plt Count 200 (160-400) X10*3/uL MPV 11.4 (9.4-12.3) fL Immature Gran % (Auto) 0.1 (0.0-0.4) % Neut % (Auto) 74.0 H (45-73) % Lymph % (Auto) 19.1 L (20-40) % [place] % (Auto) 5.6 (2-11) % Eos % (Auto) 0.8 (0-4) % Baso % (Auto) 0.4 (0-2) % Lymph # (Auto) 1.4 (1.2-4.9) X10*3/uL [place] # (Auto) 0.4 (0.1-1.2) X10*3/uL Eos # (Auto) 0.1 (0.0-0.4) X10*3/uL Baso # (Auto) 0.0 (0.0-0.2) X10*3/uL Abs Immat Gran (auto) 0.01 (0.00-0.03) X10*3/uL Absolute Neuts (auto) 5.4 (2.0-8.3) x10*3/uL Absolute Nucleated RBC 0.000 (0.0-0.012) X10*3/uL Nucleated RBC % (auto) 0.0 (0.0-0.2) /100WBC Discharge Plan Discharge Clinical Impression: Mood disorder with psychosis Patient Disposition: Still a Patient Prescriptions: No Action gabapentin 600 mg Tablet 600 mg PO TID Qty: 90 0RF nicotine (polacrilex) 2 mg Gum 4 mg buccal Q1H PRN (Reason: Nicotine Cravings) Qty: 30 0RF nicotine 21 mg/24 hr Patch 24 Hour 21 mg transdermal DAILY Qty: 30 0RF olanzapine [Zyprexa] 15 mg tablet 15 mg PO BID Qty: 60 0RF gabapentin 600 mg tablet 600 mg PO TID Qty: 42 1RF nicotine 21 mg/24 hr patch 24 hour 1 patch transdermal DAILY Qty: 28 0RF
--- NOTE | 2023-12-10 14:55 | ED.GENADULT ---
HPI - General Adult General Chief complaint: Psychiatric Symptoms Stated complaint: si crisis Time Seen by Provider: 12/10/23 14:54 Source: patient Mode of arrival: ambulatory Limitations: other (acute psychosis ) History of Present Illness HPI narrative: 38 year old female hx of mood disorder, PTSD, polysubstance abuse, chronic hep C presents w/ paranoia, hallucinations, si and hi X unknown amount of time. Patient wants to kill her sister ruth ann shes a lot to handle. She feels suicidal and has thoughout about overdosing on pills. Patient endorsing hallucinations visual and auditory and is very paranoid during the history taking asking nurses if they are the police and stating she is part of the [place]. Patient also tells me she has access to pills and weapons, she tells me she wants to kill Uzair burch and steal guns from the [employer] . Patient denies drugs and alcohol. Denies medical complaints . Has not been taking her home medications Related Data Home Medications Medication Instructions Recorded Confirmed No Known Home Meds 12/10/23 12/10/23 Allergies Allergy/AdvReac Type Severity Reaction Status Date / Time alprazolam [From Xanax] Allergy Rash Verified 12/10/23 14:44 Review of Systems Review of Systems: Very difficult to obtain accurate review of systems due to patient's acute psychotic state Yes all other systems are reviewed and are negative PMFSH Past Medical History Attestation statement: The following information was validated with the patient. Source: old records reviewed and nursing notes reviewed Onset Date is defined in the Problem List Problems that require an onset date and time if occurred within 24 hrs of arrival to the ED Aortic Dissection and Rupture; Neurologic impairment; Cardiopulmonary Arrest; Endotracheal Intubation; Insertion or Replacement of Mechanical Circulatory Assist Device Medical History Polysubstance abuse Mood disorder with psychosis PTSD (post-traumatic stress disorder) Chronic active hepatitis Hepatitis C antibody positive in blood History of drug abuse Obesity Hep C w/ coma, chronic Family History Family History Father Diabetes Mother Diabetes Brother Asthma Social History Social History Household Members: None Alcohol intake: current Alcohol intake frequency: does not drink Patient Tobacco Use Status: Never used Tobacco Cigarettes Per Day: 10 Years Smoked: since age 20 e-Cigarette/Vaping Use: Never Used service: No Current occupational status: unemployed Sexual orientation: Don't Know Physical Exam ED Vital Signs: Vital Signs - 24 hr 12/10/23 14:45 Temperature 97.8 F Pulse Rate 79 Respiratory Rate 18 Blood Pressure 153/90 H Pulse Oximetry 98 Oxygen Delivery Method Room Air BMI result Body Mass Index 44.9 vss Appearance: Alert.? Oriented X3.? No acute distress.?Very anxious and paranoid. Head: Normocephalic, atraumatic, no step-offs or deformities Eyes: Pupils equal, round and reactive to light.? CVS: Normal heart rate and rhythm.? Pulses normal.? Respiratory: No respiratory distress.? Breath sounds normal.? Abdomen: Soft and nontender.? Skin: Skin warm and dry.? Normal skin color.? Normal skin turgor.? Extremities: No lower extremity edema.? No calf ttp. 5/5 strength to bilateral upper and lower extremities Neuro: Oriented X 3.? No motor deficit.? No sensory deficit. CN 2-12 intact Course Reevaluation(s) Reevaluation #1: CBC unremarkable. Chemistry no acute findings. Transaminitis at baseline ? due to hepatitis C. No abd pain however unlikely acute process. Salicylates, acetaminophen, ethanol negative. COVID negative. At this time patient to be placed in observation to allow more time for patient to be evaluated by care team. Patinet calm and cooperative. Will continue to monitor Time: 15:56 Medications Administered Discontinued Medications Generic Name Dose Route Start Last Admin Trade Name Ra PRN Reason Stop Dose Admin Olanzapine 10 mg 12/10/23 15:01 12/10/23 15:29 Olanzapine 10 Mg Tablet PO 12/10/23 15:02 10 mg ONCE ONE Administration Medical Decision Making Medical Decision Making MDM Narrative: 38-year-old female presents with acute psychosis unknown amount of time. Poor historian. Very paranoid. Physical exam patient very paranoid and going on tangents about random things. Otherwise unremarkable physical. History and physical exam concerning for acute psychosis versus schizophrenia versus bipolar. Unlikely metabolic derangements, delirium. Plan medical clearance evaluation by care team Differential Diagnosis Differential Diagnoses: The differential diagnosis associated with the presentation includes History and physical exam concerning for acute psychosis versus schizophrenia versus bipolar. Unlikely metabolic derangements, delirium. Admission/Observation Consideration of admission/observation: Escalation of care including admission/observation considered likely Lab Data MDM Lab Attestation statement: I reviewed the patient's lab results. 12/10/23 15:07 12/10/23 15:07 Labs: Lab Results 12/10/23 Range/Units 15:07 WBC 7.3 (4.8-10.8) X10*3/uL RBC 4.92 (4.20-5.50) X10*6/uL Hgb 14.8 (12.0-16.0) g/dl Hct 43.9 (37.0-47.0) % MCV 89.2 (80.0-98.0) fL MCH 30.1 (27.0-33.0) pg MCHC 33.7 (31.0-35.0) g/dl RDW 13.1 (11.0-16.0) % Plt Count 200 (160-400) X10*3/uL MPV 11.4 (9.4-12.3) fL Immature Gran % (Auto) 0.1 (0.0-0.4) % Neut % (Auto) 74.0 H (45-73) % Lymph % (Auto) 19.1 L (20-40) % [place] % (Auto) 5.6 (2-11) % Eos % (Auto) 0.8 (0-4) % Baso % (Auto) 0.4 (0-2) % Lymph # (Auto) 1.4 (1.2-4.9) X10*3/uL [place] # (Auto) 0.4 (0.1-1.2) X10*3/uL Eos # (Auto) 0.1 (0.0-0.4) X10*3/uL Baso # (Auto) 0.0 (0.0-0.2) X10*3/uL Abs Immat Gran (auto) 0.01 (0.00-0.03) X10*3/uL Absolute Neuts (auto) 5.4 (2.0-8.3) x10*3/uL Absolute Nucleated RBC 0.000 (0.0-0.012) X10*3/uL Nucleated RBC % (auto) 0.0 (0.0-0.2) /100WBC Sodium 141 (135-145) mmol/L Potassium 4.0 (3.3-5.1) mmol/L Chloride 111 H (96-108) mmol/L Carbon Dioxide 22 (22-29) mmol/L Anion Gap 12 (12-20) BUN 7 L (9-16) mg/dL Creatinine 0.78 (0.5-1.4) mg/dL Estim Creat Clear Calc 135.4 Estimated GFR > 60 Random Glucose 97 (60-115) mg/dL Calcium 9.4 (8.4-10.2) mg/dL Total Bilirubin 0.5 (0.0-1.0) mg/dL AST 45 H (5-31) U/L ALT 74 H (0-31) U/L Alkaline Phosphatase 118 H (39-117) U/L Total Protein 7.7 (6.5-8.0) g/dL Albumin 4.2 (3.5-5.0) g/dL Salicylates < 5.0 L (15-30) mg/dL Acetaminophen < 3 (<30) mcg/mL Ethyl Alcohol < 10 mg/dL COVID-19 ([facility]) Negative (Negative) COVID-19 Clin Com See Note External Record Review External record reviewed: Inpatient record, Office record, Outpatient record, Prior outpatient labs, Prior outpatient radiology, Primary care record and Outside ED record Chronic Conditions Patient?s care impacted by: Other (hep c, opiate dependence, PTSD, mood disorder) Social Determinants Patient?s care significantly limited by Social Determinants of Health including: Inadequate housing, Low income, Alcoholism and drug addiction in family, Problems related to primary support group, Unemployment, Problems related to employment and Other Social Determinant of Health Critical Care Time Critical Care Time Critical Care Time: No Discharge Plan Discharge Clinical Impression: Mood disorder with psychosis Patient Disposition: Still a Patient Prescriptions: No Action No Known Home Meds
[2023-12-10 15:12] LABS: MANUAL DIFF FLAG NO
[2023-12-10 15:15] LABS: Basophils Percent Auto 0.4 % (0-2); Eosinophils Absolute Auto 0.1 X10*3/uL (0.0-0.4); Eosinophils Percent Auto 0.8 % (0-4); Hematocrit 43.9 % (37.0-47.0); Hemoglobin 14.8 g/dl (12.0-16.0); Imm Gran Abs Auto 0.01 X10*3/uL (0.00-0.03); Imm Gran Pct Auto 0.1 % (0.0-0.4); Lymphocytes Absolute Auto 1.4 X10*3/uL (1.2-4.9); Lymphocytes Percent Auto 19.1 % (20-40); Mean Corpuscular HGB Conc 33.7 g/dl (31.0-35.0); Mean Corpuscular Hemoglobin 30.1 pg (27.0-33.0); Mean Corpuscular Volume 89.2 fL (80.0-98.0); Mean Platelet Volume 11.4 fL (9.4-12.3); Monocytes Absolute Auto 0.4 X10*3/uL (0.1-1.2); Monocytes Percent Auto 5.6 % (2-11); Neutrophils Absolute Auto 5.4 x10*3/uL (2.0-8.3); Platelet Count 200 X10*3/uL (160-400); Red Blood Count 4.92 X10*6/uL (4.20-5.50); Red Cell Distribution Width 13.1 % (11.0-16.0); White Blood Count 7.3 X10*3/uL (4.8-10.8)
[2023-12-10 15:27] LABS: Alanine Aminotransferase 74 U/L (0-31); Albumin Level 4.2 g/dL (3.5-5.0); Alkaline Phosphatase 118 U/L (39-117); Anion Gap 12 (12-20); Aspartate Amino Transferase 45 U/L (5-31); Bilirubin Total 0.5 mg/dL (0.0-1.0); Blood Urea Nitrogen 7 mg/dL (9-16); Calcium 9.4 mg/dL (8.4-10.2); Carbon Dioxide 22 mmol/L (22-29); Chloride 111 mmol/L (96-108); Creatinine Clr Calc Pharmacy 135.4; Estimated Glomerular Filt Rate > 60; Ethanol < 10 mg/dL; Glucose Random 97 mg/dL (60-115); Sodium 141 mmol/L (135-145); Total Protein 7.7 g/dL (6.5-8.0)
[2023-12-10] MEDS: OLANZapine 10 MG TABLET PO (15:29)
[2023-12-10 15:35] LABS: COVID-19 Test Negative (Negative); IDNOW Serial# 152EDE1D
[2023-12-10 15:49] LABS: Acetaminophen LAB < 3 mcg/mL (<30); Salicylate < 5.0 mg/dL (15-30)
--- NOTE | 2023-12-10 16:46 | PC.NURSE ---
Pt coming in reporting she is SI without a plan and HI towards sister. Reports she is in the [place]. Pt is calm and cooperative, labs were sent, pending urine collection at this time. Pt has been watching TV and having snacks since arrival. Took PO medications with no problem.
[2023-12-10 16:48] VITALS: PULSE 18
[2023-12-10 18:28] VITALS: RESP 16
--- NOTE | 2023-12-10 19:01 | PC.NURSE ---
patient appears to remain at rest in rear communal area at present respirations are even and unlabored patient appears in no distress.
[2023-12-11 07:42] VITALS: BP 114/61; PULSE 97; RESP 16; TEMP 36.6; O2SAT 97
[2023-12-11 09:46] LABS: Appearance Urine Clear; Color Urine Yellow; Glucose Urine UA Negative (Negative); Leukocyte Esterase Urine Negative (Negative); Nitrite Urine Negative (Negative); Specific Gravity - Urine 1.015 (1.005-1.025); Urine Blood Negative (Negative); Urine Ketones Negative (Negative); Urine Protein Negative (Neg-Trace)
[2023-12-11 09:49] LABS: Bacteria Urine None Seen (None Seen); Hyaline Casts Urine 0-2 /LPF (0-2); RBC Urine 0-2 /HPF (0-2); WBC Urine 0-5 /HPF (0-5)
[2023-12-11 09:56] LABS: Amphetamine Screen Urine Not Detected (Not Detect); Barbiturates, Urine Not Detected (Not Detect); Benzodiazepines Screen Urine Not Detected (Not Detect); Cannabinoid Screen Urine Not Detected (Not Detect); Cocaine Screen Urine Not Detected (Not Detect); Fentanyl, urine Not Detected (Not Detect); Opiate Screen Urine Not Detected (Not Detect); Phencyclidine Screen Urine Not Detected (Not Detect)
--- NOTE | 2023-12-11 10:22 | MHC.EDTECH ---
Pt refused EKG at this time. Tech explained it is for admission purposes, pt refused once again. RN aware.
--- NOTE | 2023-12-11 17:35 | PC.NURSE ---
In bed resting most of shift. Appetite good. No behavioral concerns. Breathing even and unlabored. No c/o pain or discomfort.
--- NOTE | 2023-12-11 18:02 | PC.ADMIT ---
PT ARRIVED ON THE UNIT AT 1700, IN A W/C. SHE IS A CV AND WAS ADMITTED FROM [facility] [place] ED. PT IS A 38 YEAR OLD FEMALE. PT STATES THAT SHE WANTS TO KILL HERSELF AND HER SISTER . PT.'S PLAN TO KILL HERSELF IS A A STOCKPILE OF 70 XANAX , AND SHE DENIES A PLAN TO KILL HER SISTER, BUT WOULD LIKE TO BECAUSE SHE HIT ME . PT STATES THAT SHE WOULD LIKE TO KILL HERSELF BECAUSE HER OTHER SISTER COMMITTED SUICIDE . PT ENDORSES A&VH. VERY EARLY ON IN THE ADMISSION PROCESS, PT DECLINED TO FURTHER PARTICIPATE. PT MAKES POOR EYE CONTACT, MOVES HER TONGUE FROM SIDE TO SIDE WITHIN HER MOUTH, HAS POOR CONCENTRATION, A STEADY GAIT, AND HAS NORMAL VOLUME AND TONE WHEN SHE SPEAKS. PT STATES THAT SHE USED TO LIVE IN A NURSING HOME UP UNIT 1 MONTH AGO. I RAN AWAY AND HAVE BEEN LIVING WITH FRIENDS .
[2023-12-11 22:14] VITALS: BP 107/56; PULSE 52; RESP 14; TEMP 36.3; O2SAT 99
[2023-12-12] MEDS: Nicotine 21 MG PATCH.TD24 TRANSDERMA (09:39)
--- NOTE | 2023-12-12 12:35 | HO.PSYADMNOT ---
HPI Date of Service: 12/12/23 Chief Complaint: crisis Sources of Information: patient interviewed, chart reviewed and crisis/core team assessment reviewed HPI Subjective Notes: Conditional Voluntary Narrative: Nicolas is a 38-year-old white, single woman with history of mood disorder with psychotic features, PTSD, suicide attempts. Information was primarily obtained from the patient who is a very poor historian and the crisis evaluation. This is 1 of numerous psychiatric hospitalizations. She was last hospitalized about a month ago. She was living in [facility] home in [place] however she left on her own and has been staying with friends. She states that she has been having suicidal ideations of overdosing on pills, had plans to get a gun from a friend and to kill her sister. She does not have access to guns readily. She has had 3 suicide attempts in the past with overdoses and last 1 was about ?a year ago?. Recently she lost a sister to suicide. She has not been taking any medications for at least a month or more, not going to any clinics or appointments. No current or recent substance use or abuse. Past Psychiatric History: IP: Reports in pt for approx the past two months. OP: None currently. Hx Narinder Roth [phone] Meds: Suboxone 8-2, 2 a.m. 1 p.m. Clonidine 0.1 mg prn q3h Gabapentin 600 mg tid Trazodone 50 mg hs prn Narcan prn SA: Age 31 via OD, 10/2021 via OD SIBS: Hx cutting Hx of agitation when in treatment Medical Evaluation Reviewed: Yes [facility] Medical History Polysubstance abuse Mood disorder with psychosis PTSD (post-traumatic stress disorder) Chronic active hepatitis Hepatitis C antibody positive in blood History of drug abuse Obesity Hep C w/ coma, chronic Family History: Schizophrenia, Depression Mother had admissions to the [facility] Social History: Born in [place]. Raised in [place] High school graduate Unemployed, Homeless, however reports she lives with father, grandmother. Legal: Hx of arrest for larceny Substance History: She denies any recent use or abuse and history was unobtainable because she left during the interview Trauma History: Affirms Diagnostics Vital Signs (24Hr): Vital Signs - 24 hr 12/11/23 22:14 Temperature 97.4 F Pulse Rate 52 Respiratory Rate 14 Blood Pressure 107/56 L Pulse Oximetry 99 Oxygen Delivery Method Room Air BMI result Body Mass Index 44.9 Labs 12/10/23 15:07 12/10/23 15:07 Labs: Laboratory Results - last 48 hr 12/10/23 12/11/23 15:07 09:31 WBC 7.3 RBC 4.92 Hgb 14.8 Hct 43.9 MCV 89.2 MCH 30.1 MCHC 33.7 RDW 13.1 Plt Count 200 MPV 11.4 Immature Gran % (Auto) 0.1 Neut % (Auto) 74.0 H Lymph % (Auto) 19.1 L [place] % (Auto) 5.6 Eos % (Auto) 0.8 Baso % (Auto) 0.4 Lymph # (Auto) 1.4 [place] # (Auto) 0.4 Eos # (Auto) 0.1 Baso # (Auto) 0.0 Abs Immat Gran (auto) 0.01 Absolute Neuts (auto) 5.4 Absolute Nucleated RBC 0.000 Nucleated RBC % (auto) 0.0 Sodium 141 Potassium 4.0 Chloride 111 H Carbon Dioxide 22 Anion Gap 12 BUN 7 L Creatinine 0.78 Estim Creat Clear Calc 135.4 Estimated GFR > 60 Random Glucose 97 Calcium 9.4 Total Bilirubin 0.5 AST 45 H ALT 74 H Alkaline Phosphatase 118 H Total Protein 7.7 Albumin 4.2 Urine Color Yellow Urine Appearance Clear Urine pH 6.0 Ur Specific [place] 1.015 Urine Protein Negative Urine Glucose (UA) Negative Urine Ketones Negative Urine Blood Negative Urine Nitrite Negative Ur Leukocyte Esterase Negative Urine RBC 0-2 Urine WBC 0-5 Ur Squamous Epith Cells 3-5 Urine Bacteria None Seen Hyaline Casts 0-2 Salicylates < 5.0 L Urine Opiates Screen Not Detected Urine Fentanyl Screen Not Detected Acetaminophen < 3 Ur Barbiturates Screen Not Detected Ur Phencyclidine Scrn Not Detected Ur Amphetamines Screen Not Detected U Benzodiazepines Scrn Not Detected Urine Cocaine Screen Not Detected U Marijuana (THC) Screen Not Detected Ethyl Alcohol < 10 COVID-19 ([facility]EREN) Negative COVID-19 Clin Com See Note Meds/Allergies Meds Home Medications Medication Instructions Recorded Confirmed Type No Known Home Meds 12/10/23 12/10/23 History Allergies Allergies Allergy/AdvReac Type Severity Reaction Status Date / Time alprazolam [From Xanax] Allergy Rash Verified 12/10/23 14:44 Mental Status Exam Mental Status Exam Narrative: Patient was seen the day after her admission. She is a very poor historian as previously stated. She did agree to come to be interviewed but after 10 or 15 minutes she stated that she has not feeling good and wanted to leave. On observation she is alert, oriented. Normal speech. Moderate eye contact. Affect is appropriate and contained. She admits to auditory hallucinations, not command in nature. No visual hallucinations. Cognitively could not be assessed. Judgment is poor to marginal. Assessment & Plan Assessment & Plan (1) Mood disorder with psychosis: Status: Acute Code(s): F39 - Unspecified mood [affective] disorder Plan Patient meets criteria for IP LOC for safety and stabilization. She states that Risperdal in the past has been helpful with her auditory hallucinations so I initiated 1 mg b.i.d. for now. Clonidine 0.1 mg t.i.d. p.r.n. ordered. She will meet with her treatment team on 12/14/23 Patient educated on: diagnosis, medication risk/benefits and substance abuse Reason for continued inpatient stay Substantial Risk for: harm to self, harm to others and med/psych decompensation Statement Statement: I have reviewed the history and physical and performed a pertinent examination on my patient. No changes have occurred unless specified. If the History and Physical was not performed prior to admission, the Hospitalist's service will be consulted for completing the admission physical. Time Spent With Patient Time: Total time managing care of this patient today ____ minutes.
[2023-12-12] MEDS: Nicotine Polacrilex 2 MG GUM 4 MG BUCCAL (14:03)
[2023-12-12 18:12] VITALS: BP 110/58; PULSE 55; RESP 18; TEMP 36.7; O2SAT 97
[2023-12-12] MEDS: risperiDONE 1 MG TABLET PO (20:35)
[2023-12-13 07:45] VITALS: BP 98/51; PULSE 71; RESP 14; TEMP 36.6; O2SAT 95
[2023-12-13] MEDS: risperiDONE 1 MG TABLET PO ×2 (08:26→22:17)
[2023-12-13] MEDS: hydrOXYzine HCL 25 MG TABLET PO (08:26)
[2023-12-13] MEDS: cloNIDine HCL 0.1 MG TABLET PO (08:26)
--- NOTE | 2023-12-13 11:08 | HO.PSYCHPN ---
Subjective Subjective Date of Service: 12/13/23 Reason For Visit: crisis, SI Subjective Notes: Conditional Voluntary Interim History: Patient was seen and reviewed in rounds today. Records and plans were reviewed. She has settled in and is doing fairly well. She is mostly in her room, somewhat isolative. Eating and sleeping adequately. She continues to have SI but denies any plans or danger of acting on this here. No complaints or side effects. Slept adequately. No changes were made today Review of Systems Review of Systems Yes all other systems are reviewed and are negative Mental Status Exam Mental Status Exam Narrative: In today's visit she is alert, oriented and pleasant. Normal speech. Little eye contact. Affect is constricted. No acute signs of psychosis but admits to auditory hallucinations, not command in nature. Admits to SI with no plans or intent. Cognitively is grossly intact. Judgment is intact Diagnostics Vital Signs (24Hr): Vital Signs - 24 hr 12/12/23 18:12 12/13/23 07:45 Temperature 98.1 F 97.9 F Pulse Rate 55 71 Respiratory Rate 18 14 Blood Pressure 110/58 L 98/51 L Pulse Oximetry 97 95 Oxygen Delivery Method Room Air Room Air BMI result Body Mass Index 44.9 Labs 12/10/23 15:07 12/10/23 15:07 Medications Medications Current Medications Acetaminophen (Acetaminophen 325 Mg Tablet) 650 mg PO Q6H PRN PRN Reason: Headache/Pain Mild Scale (1-3) Al Hydroxide/Mg Hydroxide (Magnesium Hydrox/Alum Hydrox 30 Ml Oral.Susp) 30 ml PO Q6H PRN PRN Reason: Heartburn/Nausea Clonidine HCl (Clonidine Hcl 0.1 Mg Tablet) 0.1 mg PO TID PRN; Protocol PRN Reason: anxiety/restlessness Last Admin: 12/13/23 08:26 Dose: 0.1 mg Hydroxyzine HCl (Hydroxyzine Hcl 25 Mg Tablet) 25 mg PO Q6H PRN PRN Reason: Anxiety Last Admin: 12/13/23 08:26 Dose: 25 mg Magnesium Hydroxide (Milk Of Magnesia 30 Ml Oral.Susp) 30 ml PO DAILY PRN PRN Reason: Constipation Nicotine (Nicotine 21 Mg Patch.Td24) 21 mg TRANSDERMA DAILY TEETEE Last Admin: 12/13/23 10:42 Dose: Not Given Nicotine Polacrilex (Nicotine Polacrilex 2 Mg Gum) 4 mg BUCCAL Q2H PRN PRN Reason: Nicotine Cravings Last Admin: 12/12/23 14:03 Dose: 4 mg Risperidone (Risperidone 1 Mg Tablet) 1 mg PO BID TEETEE Last Admin: 12/13/23 08:26 Dose: 1 mg Trazodone HCl (Trazodone Hcl 50 Mg Tablet) 50 mg PO BEDTIME MRX1 PRN PRN Reason: Insomnia Allergies Allergies Allergy/AdvReac Type Severity Reaction Status Date / Time alprazolam [From Xanax] Allergy Rash Verified 12/10/23 14:44 Assessment & Plan Assessment & Plan (1) Mood disorder with psychosis: Status: Acute Code(s): F39 - Unspecified mood [affective] disorder Plan Patient meets criteria for IP LOC for safety and stabilization. She states that Risperdal in the past has been helpful with her auditory hallucinations so I initiated 1 mg b.i.d. for now. Clonidine 0.1 mg t.i.d. p.r.n. ordered. She will meet with her treatment team on 12/14/23 12/13/2023: Continue current regimen and plans Reason for continued inpatient stay Substantial Risk for: inability to function and med/psych decompensation Time Spent With Patient Time: Total time managing care of this patient today ____ minutes.
[2023-12-13 20:05] VITALS: RESP 16
[2023-12-14] MEDS: Nicotine 21 MG PATCH.TD24 TRANSDERMA (08:25)
[2023-12-14] MEDS: risperiDONE 1 MG TABLET PO (08:25)
[2023-12-14] MEDS: hydrOXYzine HCL 25 MG TABLET PO ×2 (08:44→20:24)
[2023-12-14] MEDS: cloNIDine HCL 0.1 MG TABLET PO ×2 (08:44→20:24)
[2023-12-14] MEDS: Nicotine Polacrilex 2 MG GUM 4 MG BUCCAL (08:47)
[2023-12-14 08:54] VITALS: BP 108/59; PULSE 66; RESP 16; TEMP 36.3; O2SAT 96
--- NOTE | 2023-12-14 09:41 | PC.NURSE ---
On 12/11/2023, this RN admitted this patient to this unit. During admission process, this patient refused to have her VS checked.
--- NOTE | 2023-12-14 14:21 | P.PNPSI_ITS ---
Subjective Subjective Date of Service: 12/14/23 Reason For Visit: crisis, SI Interim History: met with patient; discussed with team; reviewed chart pt reports no improvement in symptoms, feels the same. She says AH remain and no better, hears voice of Sarah... Passive SI remains. Discussed meds and reviewed chart with pt who was on Zyprexa 15mg BID when on unit 2 years ago, 11/2021. She said she's been on Riseprdal before, does not remember if helpful. Agrees to increase dose. Says she was at detention a few weeks ago and has been bouncing around for a couple of weeks since and has not taken much meds. Asked if SW can help navigate dispo.. Mental Status Exam Mental Status Exam Narrative: Pt is alert and oriented; behavior is cooperative and calm; patient is not in distress; dressed in hospital attire unkempt, marginal hygiene; mood is described as Same and affect blunted to constricted; eye contact appropriate; Speech is normal rate, volume and prosody and not pressured; some psychomotor retardation present; thought process is goal directed; Thought content is on passive SI, treatment; otherwise pertinent to relevant topics; Passive SI; no HI. Positive for Patients insight and judgment impaired. Diagnostics Vital Signs (24Hr): Vital Signs - 24 hr 12/13/23 20:05 12/14/23 08:54 Temperature 97.3 F Pulse Rate 66 Respiratory Rate 16 16 Blood Pressure 108/59 L Pulse Oximetry 96 Oxygen Delivery Method Room Air BMI result Body Mass Index 44.9 Labs 12/10/23 15:07 12/10/23 15:07 Medications Medications Current Medications Acetaminophen (Acetaminophen 325 Mg Tablet) 650 mg PO Q6H PRN PRN Reason: Headache/Pain Mild Scale (1-3) Al Hydroxide/Mg Hydroxide (Magnesium Hydrox/Alum Hydrox 30 Ml Oral.Susp) 30 ml PO Q6H PRN PRN Reason: Heartburn/Nausea Clonidine HCl (Clonidine Hcl 0.1 Mg Tablet) 0.1 mg PO TID PRN; Protocol PRN Reason: anxiety/restlessness Last Admin: 12/14/23 08:44 Dose: 0.1 mg Hydroxyzine HCl (Hydroxyzine Hcl 25 Mg Tablet) 25 mg PO Q6H PRN PRN Reason: Anxiety Last Admin: 01/15/24 08:44 Dose: 25 mg Magnesium Hydroxide (Milk Of Magnesia 30 Ml Oral.Susp) 30 ml PO DAILY PRN PRN Reason: Constipation Nicotine (Nicotine 21 Mg Patch.Td24) 21 mg TRANSDERMA DAILY [facility] Last Admin: 12/14/23 08:25 Dose: 21 mg Nicotine Polacrilex (Nicotine Polacrilex 2 Mg Gum) 4 mg BUCCAL Q2H PRN PRN Reason: Nicotine Cravings Last Admin: 12/14/23 08:47 Dose: 4 mg Risperidone (Risperidone 1 Mg Tablet) 1 mg PO BID [facility] Last Admin: 12/14/23 08:25 Dose: 1 mg Trazodone HCl (Trazodone Hcl 50 Mg Tablet) 50 mg PO BEDTIME MRX1 PRN PRN Reason: Insomnia Allergies Allergies Allergy/AdvReac Type Severity Reaction Status Date / Time alprazolam [From Xanax] Allergy Rash Verified 12/10/23 14:44 Assessment & Plan Assessment & Plan (1) Mood disorder with psychosis: Status: Acute Code(s): F39 - Unspecified mood [affective] disorder Plan Patient meets criteria for IP LOC for safety and stabilization. She states that Risperdal in the past has been helpful with her auditory hallucinations so I initiated 1 mg b.i.d. for now. Clonidine 0.1 mg t.i.d. p.r.n. ordered. She will meet with her treatment team on 12/14/23 12/13/2023: Continue current regimen and plans 12/14 Increased Risperdal since continued AH and in past on high dose of Zyprexa (15mg BID). Plan: Continue Risperdal 1mg in AM Increase to Risperdal 2mg qhs gather collateral Patient educated on: diagnosis and medication risk/benefits Informed Consent: understands and further education needed Reason for continued inpatient stay Substantial Risk for: inability to function Time Spent With Patient Time: Total time managing care of this patient today ____ minutes.
--- NOTE | 2023-12-14 15:21 | HO.PSYCHPN ---
Subjective Subjective Reason For Visit: crisis, SI Diagnostics Vital Signs (24Hr): Vital Signs - 24 hr 12/13/23 20:05 12/14/23 08:54 Temperature 97.3 F Pulse Rate 66 Respiratory Rate 16 16 Blood Pressure 108/59 L Pulse Oximetry 96 Oxygen Delivery Method Room Air BMI result Body Mass Index 44.9 Labs 12/10/23 15:07 12/10/23 15:07 Medications Medications Current Medications Acetaminophen (Acetaminophen 325 Mg Tablet) 650 mg PO Q6H PRN PRN Reason: Headache/Pain Mild Scale (1-3) Al Hydroxide/Mg Hydroxide (Magnesium Hydrox/Alum Hydrox 30 Ml Oral.Susp) 30 ml PO Q6H PRN PRN Reason: Heartburn/Nausea Clonidine HCl (Clonidine Hcl 0.1 Mg Tablet) 0.1 mg PO Q4H PRN; Protocol PRN Reason: anxiety/restlessness Hydroxyzine HCl (Hydroxyzine Hcl 25 Mg Tablet) 25 mg PO Q6H PRN PRN Reason: Anxiety Last Admin: 12/14/23 08:44 Dose: 25 mg Magnesium Hydroxide (Milk Of Magnesia 30 Ml Oral.Susp) 30 ml PO DAILY PRN PRN Reason: Constipation Nicotine (Nicotine 21 Mg Patch.Td24) 21 mg TRANSDERMA DAILY TEETEE Last Admin: 12/14/23 08:25 Dose: 21 mg Nicotine Polacrilex (Nicotine Polacrilex 2 Mg Gum) 4 mg BUCCAL Q2H PRN PRN Reason: Nicotine Cravings Last Admin: 12/14/23 08:47 Dose: 4 mg Risperidone (Risperidone 1 Mg Tablet) 1 mg PO DAILY TEETEE Risperidone (Risperidone 2 Mg Tablet) 2 mg PO BEDTIME TEETEE Trazodone HCl (Trazodone Hcl 50 Mg Tablet) 50 mg PO BEDTIME MRX1 PRN PRN Reason: Insomnia Allergies Allergies Allergy/AdvReac Type Severity Reaction Status Date / Time alprazolam [From Xanax] Allergy Rash Verified 12/10/23 14:44 Assessment & Plan Assessment & Plan (1) Mood disorder with psychosis: Status: Acute Code(s): F39 - Unspecified mood [affective] disorder Plan Patient meets criteria for IP LOC for safety and stabilization. She states that Risperdal in the past has been helpful with her auditory hallucinations so I initiated 1 mg b.i.d. for now. Clonidine 0.1 mg t.i.d. p.r.n. ordered. She will meet with her treatment team on 12/14/23 12/13/2023: Continue current regimen and plans 12/14 Increased Risperdal since continued AH and in past on high dose of Zyprexa (15mg BID). Plan: Continue Risperdal 1mg in AM Increase to Risperdal 2mg qhs gather collateral Time Spent With Patient Time: Total time managing care of this patient today ____ minutes.
[2023-12-14 20:20] VITALS: BP 121/65; PULSE 96; RESP 16; TEMP 36.3; O2SAT 99
[2023-12-14] MEDS: risperiDONE 2 MG TABLET PO (20:24)
[2023-12-15 07:45] VITALS: BP 100/57; PULSE 80; RESP 18; TEMP 36.3; O2SAT 97
[2023-12-15] MEDS: risperiDONE 1 MG TABLET PO (09:21)
--- NOTE | 2023-12-15 11:52 | P.PNPSI_ITS ---
Subjective Subjective Date of Service: 12/15/23 Reason For Visit: crisis, SI Interim History: met with Patient; discussed with team Patient reports that symptoms remain the same, auditory hallucinations continue, saying she is worthless, to hurt herself, that she has no right to live. Often repeats words, saying yes yes. Ambivalent about whether AH is real or mind playing tricks on her Patient says there was only 1 medication in the past that worked and kept AH at bay for about 6 months until situational event caused depression and they returned. She can not remember what this medication was but says social insurance adviser is trying to get in touch with [facility] and get medication history. Patient denies history of manic type episodes or behaviors; however she endorses auditory hallucinations that are worse with depression, but remain present even when mood is stable. -agrees to go up on Risperdal for now -patient says that Prozac has helped treat her depression in the past thinking she was on around 30 mg; agrees to add now -reports history of PTSD -reports last cocaine use a few weeks ago Mental Status Exam Mental Status Exam Narrative: Pt is alert and oriented; behavior is cooperative and calm; patient is not in distress; dressed in hospital attire unkempt, marginal hygiene; mood is described as not good and affect blunted to constricted; eye contact appropriate; Speech is normal rate, volume and prosody and not pressured; psychomotor retardation present; thought process is goal directed; Thought content is on passive SI, treatment; otherwise pertinent to relevant topics; Passive SI; no HI. Positive for AH Patients insight and judgment impaired. Diagnostics Vital Signs (24Hr): Vital Signs - 24 hr 12/14/23 20:20 12/15/23 07:45 Temperature 97.4 F 97.3 F Pulse Rate 96 80 Respiratory Rate 16 18 Blood Pressure 121/65 100/57 L Pulse Oximetry 99 97 Oxygen Delivery Method Room Air Room Air BMI result Body Mass Index 44.9 Labs 12/10/23 15:07 12/10/23 15:07 Medications Medications Current Medications Acetaminophen (Acetaminophen 325 Mg Tablet) 650 mg PO Q6H PRN PRN Reason: Headache/Pain Mild Scale (1-3) Al Hydroxide/Mg Hydroxide (Magnesium Hydrox/Alum Hydrox 30 Ml Oral.Susp) 30 ml PO Q6H PRN PRN Reason: Heartburn/Nausea Clonidine HCl (Clonidine Hcl 0.1 Mg Tablet) 0.1 mg PO Q4H PRN; Protocol PRN Reason: anxiety/restlessness Last Admin: 12/14/23 20:24 Dose: 0.1 mg Hydroxyzine HCl (Hydroxyzine Hcl 25 Mg Tablet) 25 mg PO Q6H PRN PRN Reason: Anxiety Last Admin: 12/14/23 20:24 Dose: 25 mg Magnesium Hydroxide (Milk Of Magnesia 30 Ml Oral.Susp) 30 ml PO DAILY PRN PRN Reason: Constipation Nicotine (Nicotine 21 Mg Patch.Td24) 21 mg TRANSDERMA DAILY [facility] Last Admin: 12/15/23 09:24 Dose: Not Given Nicotine Polacrilex (Nicotine Polacrilex 2 Mg Gum) 4 mg BUCCAL Q2H PRN PRN Reason: Nicotine Cravings Last Admin: 12/14/23 08:47 Dose: 4 mg Risperidone (Risperidone 1 Mg Tablet) 1 mg PO DAILY [facility] Last Admin: 12/15/23 09:21 Dose: 1 mg Risperidone (Risperidone 2 Mg Tablet) 2 mg PO BEDTIME [facility] Last Admin: 12/14/23 20:24 Dose: 2 mg Trazodone HCl (Trazodone Hcl 50 Mg Tablet) 50 mg PO BEDTIME MRX1 PRN PRN Reason: Insomnia Allergies Allergies Allergy/AdvReac Type Severity Reaction Status Date / Time alprazolam [From Xanax] Allergy Rash Verified 12/10/23 14:44 Assessment & Plan Assessment & Plan (1) Schizoaffective disorder, depressive type: Status: Acute Code(s): F25.1 - Schizoaffective disorder, depressive type (2) PTSD (post-traumatic stress disorder): Status: Acute Code(s): F43.10 - Post-traumatic stress disorder, unspecified (3) Cocaine use disorder: Status: Acute Code(s): F14.10 - Cocaine abuse, uncomplicated Plan Patient meets criteria for IP LOC for safety and stabilization. She states that Risperdal in the past has been helpful with her auditory hallucinations so I initiated 1 mg b.i.d. for now. Clonidine 0.1 mg t.i.d. p.r.n. ordered. She will meet with her treatment team on 12/14/23 12/13/2023: Continue current regimen and plans 12/14 Increased Risperdal since continued AH and in past on high dose of Zyprexa (15mg BID). 12/15 Patient reports that symptoms remain the same, auditory hallucinations continue, saying she is worthless, to hurt herself, that she has no right to live. -need history of medication trials; patient said 1 antipsychotic has worked in the past but she can not remember the name. -will change diagnosis to schizoaffective disorder as patient endorses auditory hallucinations even when depression is absent; denies history of manic type episodes/behaviors. -she agrees to maximizing Risperdal since she is already on it, to see if it can help while waiting for medication trial history. -patient says that Prozac has helped treat her depression in the past thinking she was on around 30 mg; agrees to add now Plan: -Increased to Risperdal 2mg BID -reSTart Prozac 10mg; she thinks home dose is 30mg gather collateral Patient educated on: diagnosis (Schizoaffective, PTSD), medication risk/benefits and substance abuse (Cocaine use a few weeks ago) Informed Consent: understands Reason for continued inpatient stay Substantial Risk for: inability to function Time Spent With Patient Time: Total time managing care of this patient today ____ minutes.
[2023-12-15] MEDS: FLUoxetine HCl 10 MG CAPSULE PO (17:25)
[2023-12-15 20:30] VITALS: BP 147/79; PULSE 99; RESP 15; TEMP 36.6; O2SAT 97
[2023-12-15] MEDS: cloNIDine HCL 0.1 MG TABLET PO (20:40)
[2023-12-15] MEDS: risperiDONE 2 MG TABLET PO (20:41)
[2023-12-15] MEDS: hydrOXYzine HCL 25 MG TABLET PO (20:41)
[2023-12-16 07:55] VITALS: BP 114/62; PULSE 60; TEMP 36.4; O2SAT 98
[2023-12-16] MEDS: risperiDONE 2 MG TABLET PO ×2 (08:50→20:06)
[2023-12-16] MEDS: FLUoxetine HCl 10 MG CAPSULE PO (08:50)
[2023-12-16] MEDS: Nicotine 21 MG PATCH.TD24 TRANSDERMA (08:50)
--- NOTE | 2023-12-16 16:25 | HO.PSYCHPN ---
Subjective Subjective Date of Service: 12/16/23 Reason For Visit: crisis, SI Interim History: c/o SI/depression. seeing flashing lights and hearing high-pitched noises. reports h/o domi SHANKAR, states she has not heard such things for the past 3 days. agrees to increase prozac to 20 mg daily. Mental Status Exam Mental Status Exam Narrative: alert, oriented and pleasant. Normal speech. good eye contact. Affect is constricted. No acute signs of psychosis. Admits to SI with no plans or intent, depressed mood. endorsing illusions of lights and high pitched noises. Cognitively is grossly intact. Judgment is intact Diagnostics Vital Signs (24Hr): Vital Signs - 24 hr 12/15/23 20:30 12/16/23 07:55 Temperature 98 F 97.5 F Pulse Rate 99 60 Respiratory Rate 15 Blood Pressure 147/79 H 114/62 Pulse Oximetry 97 98 Oxygen Delivery Method Room Air Room Air BMI result Body Mass Index 44.9 Labs 12/10/23 15:07 12/10/23 15:07 Medications Medications Current Medications Acetaminophen (Acetaminophen 325 Mg Tablet) 650 mg PO Q6H PRN PRN Reason: Headache/Pain Mild Scale (1-3) Al Hydroxide/Mg Hydroxide (Magnesium Hydrox/Alum Hydrox 30 Ml Oral.Susp) 30 ml PO Q6H PRN PRN Reason: Heartburn/Nausea Clonidine HCl (Clonidine Hcl 0.1 Mg Tablet) 0.1 mg PO Q4H PRN; Protocol PRN Reason: anxiety/restlessness Last Admin: 12/15/23 20:40 Dose: 0.1 mg Fluoxetine HCl (Fluoxetine Hcl 20 Mg Capsule) 20 mg PO DAILY [facility] Hydroxyzine HCl (Hydroxyzine Hcl 25 Mg Tablet) 25 mg PO Q6H PRN PRN Reason: Anxiety Last Admin: 12/15/23 20:41 Dose: 25 mg Magnesium Hydroxide (Milk Of Magnesia 30 Ml Oral.Susp) 30 ml PO DAILY PRN PRN Reason: Constipation Nicotine (Nicotine 21 Mg Patch.Td24) 21 mg TRANSDERMA DAILY [facility] Last Admin: 12/16/23 08:50 Dose: 21 mg Nicotine Polacrilex (Nicotine Polacrilex 2 Mg Gum) 4 mg BUCCAL Q2H PRN PRN Reason: Nicotine Cravings Last Admin: 12/14/23 08:47 Dose: 4 mg Risperidone (Risperidone 2 Mg Tablet) 2 mg PO BID [facility] Last Admin: 12/16/23 08:50 Dose: 2 mg Trazodone HCl (Trazodone Hcl 50 Mg Tablet) 50 mg PO BEDTIME MRX1 PRN PRN Reason: Insomnia Allergies Allergies Allergy/AdvReac Type Severity Reaction Status Date / Time alprazolam [From Xanax] Allergy Rash Verified 12/10/23 14:44 Assessment & Plan Assessment & Plan (1) Schizoaffective disorder, depressive type: Status: Acute Code(s): F25.1 - Schizoaffective disorder, depressive type (2) PTSD (post-traumatic stress disorder): Status: Acute Code(s): F43.10 - Post-traumatic stress disorder, unspecified (3) Cocaine use disorder: Status: Acute Code(s): F14.10 - Cocaine abuse, uncomplicated Plan Patient meets criteria for IP LOC for safety and stabilization. She states that Risperdal in the past has been helpful with her auditory hallucinations so I initiated 1 mg b.i.d. for now. Clonidine 0.1 mg t.i.d. p.r.n. ordered. She will meet with her treatment team on 12/14/23 12/13/2023: Continue current regimen and plans 12/14 Increased Risperdal since continued AH and in past on high dose of Zyprexa (15mg BID). 12/15 Patient reports that symptoms remain the same, auditory hallucinations continue, saying she is worthless, to hurt herself, that she has no right to live. -need history of medication trials; patient said 1 antipsychotic has worked in the past but she can not remember the name. -will change diagnosis to schizoaffective disorder as patient endorses auditory hallucinations even when depression is absent; denies history of manic type episodes/behaviors. -she agrees to maximizing Risperdal since she is already on it, to see if it can help while waiting for medication trial history. -patient says that Prozac has helped treat her depression in the past thinking she was on around 30 mg; agrees to add now 12/16: increase prozac to 20 mg daily, otherwise continue current mgmt. planning to return to assisted in [place], [place]. reports no verbal AH for the past 3 days. Plan: -Increased to Risperdal 2mg BID -reSTart Prozac 10mg; she thinks home dose is 30mg gather collateral Reason for continued inpatient stay Substantial Risk for: inability to function and rapid decompensation Time Spent With Patient Time: Total time managing care of this patient today __25__ minutes.
[2023-12-16 20:00] VITALS: BP 141/54; PULSE 69; RESP 16; TEMP 36.6; O2SAT 98
[2023-12-16] MEDS: hydrOXYzine HCL 25 MG TABLET PO (20:06)
[2023-12-16] MEDS: cloNIDine HCL 0.1 MG TABLET PO (20:06)
[2023-12-17 07:00] VITALS: BMI 45.3
[2023-12-17 08:23] VITALS: BP 107/65; PULSE 65; RESP 16; TEMP 36.2; O2SAT 97
[2023-12-17] MEDS: FLUoxetine HCl 20 MG CAPSULE PO (08:25)
[2023-12-17] MEDS: risperiDONE 2 MG TABLET PO ×2 (08:25→21:51)
[2023-12-17] MEDS: Nicotine 21 MG PATCH.TD24 TRANSDERMA (08:25)
[2023-12-17] MEDS: Nicotine Polacrilex 2 MG GUM 4 MG BUCCAL ×2 (08:39→11:50)
[2023-12-17] MEDS: cloNIDine HCL 0.1 MG TABLET PO (12:41)
[2023-12-17] MEDS: hydrOXYzine HCL 25 MG TABLET PO (12:41)
[2023-12-17 12:44] VITALS: BP 136/83; PULSE 89
--- NOTE | 2023-12-17 16:14 | HO.PSYCHPN ---
Subjective Subjective Date of Service: 12/17/23 Reason For Visit: crisis, SI Interim History: calm, cooperative. mood better, denies SI. c/o restlessness at night, sounds like akathisia. agrees to take cogentin and benadryl. Mental Status Exam Mental Status Exam Narrative: alert, oriented and pleasant. Normal speech. good eye contact. Affect is constricted. denies SI. no HI/AVH expressed. mood better. Cognitively is grossly intact. Judgment is intact Diagnostics Vital Signs (24Hr): Vital Signs - 24 hr 12/16/23 20:00 12/17/23 08:23 12/17/23 12:44 Temperature 97.9 F 97.2 F Pulse Rate 69 65 89 Respiratory Rate 16 16 Blood Pressure 141/54 H 107/65 136/83 Pulse Oximetry 98 97 Oxygen Delivery Method Room Air BMI result Body Mass Index 45.3 Labs 12/10/23 15:07 12/10/23 15:07 Medications Medications Current Medications Acetaminophen (Acetaminophen 325 Mg Tablet) 650 mg PO Q6H PRN PRN Reason: Headache/Pain Mild Scale (1-3) Al Hydroxide/Mg Hydroxide (Magnesium Hydrox/Alum Hydrox 30 Ml Oral.Susp) 30 ml PO Q6H PRN PRN Reason: Heartburn/Nausea Clonidine HCl (Clonidine Hcl 0.1 Mg Tablet) 0.1 mg PO Q4H PRN; Protocol PRN Reason: anxiety/restlessness Last Admin: 12/17/23 12:41 Dose: 0.1 mg Fluoxetine HCl (Fluoxetine Hcl 20 Mg Capsule) 20 mg PO DAILY [facility]S [facility] 234 BEDS AT THE [facility] Last Admin: 12/17/23 08:25 Dose: 20 mg Hydroxyzine HCl (Hydroxyzine Hcl 25 Mg Tablet) 25 mg PO Q6H PRN PRN Reason: Anxiety Last Admin: 12/17/23 12:41 Dose: 25 mg Magnesium Hydroxide (Milk Of Magnesia 30 Ml Oral.Susp) 30 ml PO DAILY PRN PRN Reason: Constipation Nicotine (Nicotine 21 Mg Patch.Td24) 21 mg TRANSDERMA DAILY COUNTS INCLUDE 234 BEDS AT THE [facility] Last Admin: 12/17/23 08:25 Dose: 21 mg Nicotine Polacrilex (Nicotine Polacrilex 2 Mg Gum) 4 mg BUCCAL Q2H PRN PRN Reason: Nicotine Cravings Last Admin: 12/17/23 11:50 Dose: 4 mg Risperidone (Risperidone 2 Mg Tablet) 2 mg PO BID COUNTS INCLUDE 234 BEDS AT THE [facility] Last Admin: 12/17/23 08:25 Dose: 2 mg Trazodone HCl (Trazodone Hcl 50 Mg Tablet) 50 mg PO BEDTIME MRX1 PRN PRN Reason: Insomnia Allergies Allergies Allergy/AdvReac Type Severity Reaction Status Date / Time alprazolam [From Xanax] Allergy Rash Verified 12/10/23 14:44 Assessment & Plan Assessment & Plan (1) Schizoaffective disorder, depressive type: Status: Acute Code(s): F25.1 - Schizoaffective disorder, depressive type (2) PTSD (post-traumatic stress disorder): Status: Acute Code(s): F43.10 - Post-traumatic stress disorder, unspecified (3) Cocaine use disorder: Status: Acute Code(s): F14.10 - Cocaine abuse, uncomplicated Plan Patient meets criteria for IP LOC for safety and stabilization. She states that Risperdal in the past has been helpful with her auditory hallucinations so I initiated 1 mg b.i.d. for now. Clonidine 0.1 mg t.i.d. p.r.n. ordered. She will meet with her treatment team on 12/14/23 12/13/2023: Continue current regimen and plans 12/14 Increased Risperdal since continued AH and in past on high dose of Zyprexa (15mg BID). 12/15 Patient reports that symptoms remain the same, auditory hallucinations continue, saying she is worthless, to hurt herself, that she has no right to live. -need history of medication trials; patient said 1 antipsychotic has worked in the past but she can not remember the name. -will change diagnosis to schizoaffective disorder as patient endorses auditory hallucinations even when depression is absent; denies history of manic type episodes/behaviors. -she agrees to maximizing Risperdal since she is already on it, to see if it can help while waiting for medication trial history. -patient says that Prozac has helped treat her depression in the past thinking she was on around 30 mg; agrees to add now 12/16: increase prozac to 20 mg daily, otherwise continue current mgmt. planning to [facility] [place], [place]. reports no verbal AH for the past 3 days. 12/17: denies SI, states mood better. add cogentin 1 BID and benadryl 50 at HS for akathisia. Plan: -Increased to Risperdal 2mg BID -reSTart Prozac 10mg; she thinks home dose is 30mg gather collateral Reason for continued inpatient stay Substantial Risk for: harm to self, inability to function and rapid decompensation Time Spent With Patient Time: Total time managing care of this patient today _25___ minutes.
[2023-12-17] MEDS: diphenhydrAMINE HCL 25 MG CAPSULE 50 MG PO (21:51)
[2023-12-17] MEDS: Benztropine Mesylate 1 MG TABLET PO (21:51)
[2023-12-18 08:00] VITALS: BP 115/67; PULSE 82; RESP 16; TEMP 36.3; O2SAT 98
[2023-12-18] MEDS: risperiDONE 2 MG TABLET PO ×2 (09:12→21:19)
[2023-12-18] MEDS: Benztropine Mesylate 1 MG TABLET PO ×2 (09:12→21:19)
[2023-12-18] MEDS: FLUoxetine HCl 20 MG CAPSULE PO (09:12)
[2023-12-18] MEDS: Nicotine 21 MG PATCH.TD24 TRANSDERMA (09:13)
[2023-12-18] MEDS: Nicotine Polacrilex 2 MG GUM 4 MG BUCCAL (09:15)
[2023-12-18] MEDS: Nicotine Polacrilex Lozenge 4 MG LOZENGE BUCCAL (11:53)
--- NOTE | 2023-12-18 13:23 | HO.PSYCHPN ---
Subjective Subjective Date of Service: 12/18/23 Reason For Visit: crisis, SI Interim History: report AH are just noises, SI comes and goes. she reports she spoke with her former [facility] worker yesterday, and that person is supposed to be in touch with LAURA Smith here today or thursday. reports having slept better last night with addition of cogentin and benadryl. per staff, dep 2, anx 7. decreased AH. slept well. Mental Status Exam Mental Status Exam Narrative: alert, oriented and pleasant. Normal speech. good eye contact. Affect is constricted. SI comes and goes. AH just noises. no HI/VH expressed. mood better. Cognitively is grossly intact. Judgment is intact Diagnostics Vital Signs (24Hr): Vital Signs - 24 hr 12/18/23 08:00 Temperature 97.3 F Pulse Rate 82 Respiratory Rate 16 Blood Pressure 115/67 Pulse Oximetry 98 Oxygen Delivery Method Room Air BMI result Body Mass Index 45.3 Labs 12/10/23 15:07 12/10/23 15:07 Medications Medications Current Medications Acetaminophen (Acetaminophen 325 Mg Tablet) 650 mg PO Q6H PRN PRN Reason: Headache/Pain Mild Scale (1-3) Al Hydroxide/Mg Hydroxide (Magnesium Hydrox/Alum Hydrox 30 Ml Oral.Susp) 30 ml PO Q6H PRN PRN Reason: Heartburn/Nausea Benztropine Mesylate (Benztropine Mesylate 1 Mg Tablet) 1 mg PO BID [facility] Last Admin: 12/18/23 09:12 Dose: 1 mg Clonidine HCl (Clonidine Hcl 0.1 Mg Tablet) 0.1 mg PO Q4H PRN; Protocol PRN Reason: anxiety/restlessness Last Admin: 12/17/23 12:41 Dose: 0.1 mg Diphenhydramine HCl (Diphenhydramine Hcl 25 Mg Capsule) 50 mg PO BEDTIME [facility] Last Admin: 12/17/23 21:51 Dose: 50 mg Fluoxetine HCl (Fluoxetine Hcl 20 Mg Capsule) 20 mg PO DAILY [facility] Last Admin: 12/18/23 09:12 Dose: 20 mg Hydroxyzine HCl (Hydroxyzine Hcl 25 Mg Tablet) 25 mg PO Q6H PRN PRN Reason: Anxiety Last Admin: 12/17/23 12:41 Dose: 25 mg Magnesium Hydroxide (Milk Of Magnesia 30 Ml Oral.Susp) 30 ml PO DAILY PRN PRN Reason: Constipation Nicotine (Nicotine 21 Mg Patch.Td24) 21 mg TRANSDERMA DAILY [facility] Last Admin: 12/18/23 09:13 Dose: 21 mg Nicotine Polacrilex (Nicotine Polacrilex Lozenge 4 Mg Lozenge) 4 mg BUCCAL Q1H PRN PRN Reason: Nicotine Cravings Last Admin: 12/18/23 11:53 Dose: 4 mg Risperidone (Risperidone 2 Mg Tablet) 2 mg PO BID [facility] Last Admin: 12/18/23 09:12 Dose: 2 mg Trazodone HCl (Trazodone Hcl 50 Mg Tablet) 50 mg PO BEDTIME MRX1 PRN PRN Reason: Insomnia Allergies Allergies Allergy/AdvReac Type Severity Reaction Status Date / Time alprazolam [From Xanax] Allergy Rash Verified 12/10/23 14:44 Assessment & Plan Assessment & Plan (1) Schizoaffective disorder, depressive type: Status: Acute Code(s): F25.1 - Schizoaffective disorder, depressive type (2) PTSD (post-traumatic stress disorder): Status: Acute Code(s): F43.10 - Post-traumatic stress disorder, unspecified (3) Cocaine use disorder: Status: Acute Code(s): F14.10 - Cocaine abuse, uncomplicated Plan Patient meets criteria for IP LOC for safety and stabilization. She states that Risperdal in the past has been helpful with her auditory hallucinations so I initiated 1 mg b.i.d. for now. Clonidine 0.1 mg t.i.d. p.r.n. ordered. She will meet with her treatment team on 12/14/23 12/13/2023: Continue current regimen and plans 12/14 Increased Risperdal since continued AH and in past on high dose of Zyprexa (15mg BID). 12/15 Patient reports that symptoms remain the same, auditory hallucinations continue, saying she is worthless, to hurt herself, that she has no right to live. -need history of medication trials; patient said 1 antipsychotic has worked in the past but she can not remember the name. -will change diagnosis to schizoaffective disorder as patient endorses auditory hallucinations even when depression is absent; denies history of manic type episodes/behaviors. -she agrees to maximizing Risperdal since she is already on it, to see if it can help while waiting for medication trial history. -patient says that Prozac has helped treat her depression in the past thinking she was on around 30 mg; agrees to add now 12/16: increase prozac to 20 mg daily, otherwise continue current mgmt. planning to return to correction in [place], [place]. reports no verbal AH for the past 3 days. 12/17: denies SI, states mood better. add cogentin 1 BID and benadryl 50 at HS for akathisia. 12/18: slept better last night with med changes. AH still just noise, SI comes and goes. continue current mgmt for now. Plan: -Increased to Risperdal 2mg BID -reSTart Prozac 10mg; she thinks home dose is 30mg gather collateral Reason for continued inpatient stay Substantial Risk for: harm to self, inability to function and rapid decompensation Time Spent With Patient Time: Total time managing care of this patient today __25__ minutes.
[2023-12-18 19:53] VITALS: BP 103/48; PULSE 68; RESP 18; TEMP 36.3; O2SAT 97
[2023-12-18] MEDS: diphenhydrAMINE HCL 25 MG CAPSULE 50 MG PO (21:19)
[2023-12-19 07:50] VITALS: BP 122/77; PULSE 70; RESP 14; TEMP 36.2; O2SAT 97
[2023-12-19] MEDS: Nicotine 21 MG PATCH.TD24 TRANSDERMA (08:08)
[2023-12-19] MEDS: risperiDONE 2 MG TABLET PO ×2 (08:09→21:57)
[2023-12-19] MEDS: FLUoxetine HCl 20 MG CAPSULE PO (08:09)
[2023-12-19] MEDS: Benztropine Mesylate 1 MG TABLET PO ×2 (08:09→21:57)
[2023-12-19] MEDS: Nicotine Polacrilex Lozenge 4 MG LOZENGE BUCCAL ×2 (08:09→13:51)
[2023-12-19] MEDS: hydrOXYzine HCL 25 MG TABLET PO ×2 (08:10→14:38)
[2023-12-19] MEDS: cloNIDine HCL 0.1 MG TABLET PO ×2 (08:11→14:38)
--- NOTE | 2023-12-19 12:10 | HO.PSYCHPN ---
Subjective Subjective Date of Service: 12/19/23 Reason For Visit: crisis, SI Subjective Notes: Conditional Voluntary Interim History: Pt slept last night. She denies SI/HI. no overt delusional content noted or reported. Pt visible on the unit awaiting coordination of care to return home. takes meds. no side effects noted or reported. Review of Systems Review of Systems Very difficult to obtain accurate review of systems due to patient's acute psychotic state Yes all other systems are reviewed and are negative Mental Status Exam Mental Status Exam Narrative: alert, oriented and pleasant. Normal speech. good eye contact. Affect is constricted. SI comes and goes. AH just noises. no HI/VH expressed. mood better. Cognitively is grossly intact. Judgment is intact Diagnostics Vital Signs (24Hr): Vital Signs - 24 hr 12/18/23 19:53 12/19/23 07:50 Temperature 97.4 F 97.2 F Pulse Rate 68 70 Respiratory Rate 18 14 Blood Pressure 103/48 L 122/77 Pulse Oximetry 97 97 Oxygen Delivery Method Room Air Room Air BMI result Body Mass Index 45.3 Labs 12/10/23 15:07 12/10/23 15:07 Medications Medications Current Medications Acetaminophen (Acetaminophen 325 Mg Tablet) 650 mg PO Q6H PRN PRN Reason: Headache/Pain Mild Scale (1-3) Al Hydroxide/Mg Hydroxide (Magnesium Hydrox/Alum Hydrox 30 Ml Oral.Susp) 30 ml PO Q6H PRN PRN Reason: Heartburn/Nausea Benztropine Mesylate (Benztropine Mesylate 1 Mg Tablet) 1 mg PO BID [facility] Last Admin: 12/19/23 08:09 Dose: 1 mg Clonidine HCl (Clonidine Hcl 0.1 Mg Tablet) 0.1 mg PO Q4H PRN; Protocol PRN Reason: anxiety/restlessness Last Admin: 12/19/23 08:11 Dose: 0.1 mg Diphenhydramine HCl (Diphenhydramine Hcl 25 Mg Capsule) 50 mg PO BEDTIME [facility] Last Admin: 12/18/23 21:19 Dose: 50 mg Fluoxetine HCl (Fluoxetine Hcl 20 Mg Capsule) 20 mg PO DAILY [facility] Last Admin: 12/19/23 08:09 Dose: 20 mg Hydroxyzine HCl (Hydroxyzine Hcl 25 Mg Tablet) 25 mg PO Q6H PRN PRN Reason: Anxiety Last Admin: 12/19/23 08:10 Dose: 25 mg Magnesium Hydroxide (Milk Of Magnesia 30 Ml Oral.Susp) 30 ml PO DAILY PRN PRN Reason: Constipation Nicotine (Nicotine 21 Mg Patch.Td24) 21 mg TRANSDERMA DAILY [facility] Last Admin: 12/19/23 08:08 Dose: 21 mg Nicotine Polacrilex (Nicotine Polacrilex Lozenge 4 Mg Lozenge) 4 mg BUCCAL Q1H PRN PRN Reason: Nicotine Cravings Last Admin: 12/19/23 08:09 Dose: 4 mg Risperidone (Risperidone 2 Mg Tablet) 2 mg PO BID [facility] Last Admin: 12/19/23 08:09 Dose: 2 mg Trazodone HCl (Trazodone Hcl 50 Mg Tablet) 50 mg PO BEDTIME MRX1 PRN PRN Reason: Insomnia Allergies Allergies Allergy/AdvReac Type Severity Reaction Status Date / Time alprazolam [From Xanax] Allergy Rash Verified 12/10/23 14:44 Assessment & Plan Assessment & Plan (1) Schizoaffective disorder, depressive type: Status: Acute Code(s): F25.1 - Schizoaffective disorder, depressive type (2) PTSD (post-traumatic stress disorder): Status: Acute Code(s): F43.10 - Post-traumatic stress disorder, unspecified (3) Cocaine use disorder: Status: Acute Code(s): F14.10 - Cocaine abuse, uncomplicated Plan Patient meets criteria for IP LOC for safety and stabilization. She states that Risperdal in the past has been helpful with her auditory hallucinations so I initiated 1 mg b.i.d. for now. Clonidine 0.1 mg t.i.d. p.r.n. ordered. She will meet with her treatment team on 12/14/23 12/13/2023: Continue current regimen and plans 12/14 Increased Risperdal since continued AH and in past on high dose of Zyprexa (15mg BID). 12/15 Patient reports that symptoms remain the same, auditory hallucinations continue, saying she is worthless, to hurt herself, that she has no right to live. -need history of medication trials; patient said 1 antipsychotic has worked in the past but she can not remember the name. -will change diagnosis to schizoaffective disorder as patient endorses auditory hallucinations even when depression is absent; denies history of manic type episodes/behaviors. -she agrees to maximizing Risperdal since she is already on it, to see if it can help while waiting for medication trial history. -patient says that Prozac has helped treat her depression in the past thinking she was on around 30 mg; agrees to add now 12/16: increase prozac to 20 mg daily, otherwise continue current mgmt. planning to return to correction in [place], [place]. reports no verbal AH for the past 3 days. 12/17: denies SI, states mood better. add cogentin 1 BID and benadryl 50 at HS for akathisia. 12/18: slept better last night with med changes. AH still just noise, SI comes and goes. continue current mgmt for now. 12/19 continue tx. Plan: -Increased to Risperdal 2mg BID -reSTart Prozac 10mg; she thinks home dose is 30mg gather collateral Reason for continued inpatient stay Substantial Risk for: inability to function Time Spent With Patient Time: Total time managing care of this patient today ____ minutes.
[2023-12-19 14:35] VITALS: BP 130/78; PULSE 77
[2023-12-19 19:20] VITALS: BP 112/51; PULSE 67; RESP 18; TEMP 36.6; O2SAT 96
[2023-12-19] MEDS: diphenhydrAMINE HCL 25 MG CAPSULE 50 MG PO (21:57)
[2023-12-20] MEDS: Benztropine Mesylate 1 MG TABLET PO ×2 (08:24→20:59)
[2023-12-20] MEDS: risperiDONE 2 MG TABLET PO ×2 (08:24→21:00)
[2023-12-20] MEDS: Nicotine 21 MG PATCH.TD24 TRANSDERMA (08:24)
[2023-12-20] MEDS: FLUoxetine HCl 20 MG CAPSULE PO (08:24)
[2023-12-20 09:00] VITALS: BP 127/78; PULSE 78; RESP 15; TEMP 36.6; O2SAT 98
[2023-12-20] MEDS: Nicotine Polacrilex Lozenge 4 MG LOZENGE BUCCAL (11:32)
--- NOTE | 2023-12-20 15:01 | HO.PSYCHPN ---
Subjective Subjective Date of Service: 12/20/23 Reason For Visit: crisis, SI Interim History: Pt slept last night. She denies SI/HI. no overt delusional content noted or reported. Pt visible on the unit awaiting coordination of care to return home. takes meds. no side effects noted or reported. Review of Systems Review of Systems Very difficult to obtain accurate review of systems due to patient's acute psychotic state Yes all other systems are reviewed and are negative Mental Status Exam Mental Status Exam Narrative: alert, oriented and pleasant. Normal speech. good eye contact. Affect is constricted. SI comes and goes. AH just noises. no HI/VH expressed. mood better. Cognitively is grossly intact. Judgment is intact Diagnostics Vital Signs (24Hr): Vital Signs - 24 hr 12/19/23 19:20 12/20/23 09:00 Temperature 97.8 F 98 F Pulse Rate 67 78 Respiratory Rate 18 15 Blood Pressure 112/51 L 127/78 Pulse Oximetry 96 98 Oxygen Delivery Method Room Air Room Air BMI result Body Mass Index 45.3 Labs 12/10/23 15:07 12/10/23 15:07 Medications Medications Current Medications Acetaminophen (Acetaminophen 325 Mg Tablet) 650 mg PO Q6H PRN PRN Reason: Headache/Pain Mild Scale (1-3) Al Hydroxide/Mg Hydroxide (Magnesium Hydrox/Alum Hydrox 30 Ml Oral.Susp) 30 ml PO Q6H PRN PRN Reason: Heartburn/Nausea Benztropine Mesylate (Benztropine Mesylate 1 Mg Tablet) 1 mg PO BID [facility] Last Admin: 12/20/23 08:24 Dose: 1 mg Clonidine HCl (Clonidine Hcl 0.1 Mg Tablet) 0.1 mg PO Q4H PRN; Protocol PRN Reason: anxiety/restlessness Last Admin: 12/19/23 14:38 Dose: 0.1 mg Diphenhydramine HCl (Diphenhydramine Hcl 25 Mg Capsule) 50 mg PO BEDTIME [facility] Last Admin: 12/19/23 21:57 Dose: 50 mg Fluoxetine HCl (Fluoxetine Hcl 20 Mg Capsule) 20 mg PO DAILY [facility] Last Admin: 12/20/23 08:24 Dose: 20 mg Hydroxyzine HCl (Hydroxyzine Hcl 25 Mg Tablet) 25 mg PO Q6H PRN PRN Reason: Anxiety Last Admin: 12/19/23 14:38 Dose: 25 mg Magnesium Hydroxide (Milk Of Magnesia 30 Ml Oral.Susp) 30 ml PO DAILY PRN PRN Reason: Constipation Nicotine (Nicotine 21 Mg Patch.Td24) 21 mg TRANSDERMA DAILY [facility] Last Admin: 12/20/23 08:24 Dose: 21 mg Nicotine Polacrilex (Nicotine Polacrilex Lozenge 4 Mg Lozenge) 4 mg BUCCAL Q1H PRN PRN Reason: Nicotine Cravings Last Admin: 12/20/23 11:32 Dose: 4 mg Risperidone (Risperidone 2 Mg Tablet) 2 mg PO BID [facility] Last Admin: 12/20/23 08:24 Dose: 2 mg Trazodone HCl (Trazodone Hcl 50 Mg Tablet) 50 mg PO BEDTIME MRX1 PRN PRN Reason: Insomnia Allergies Allergies Allergy/AdvReac Type Severity Reaction Status Date / Time alprazolam [From Xanax] Allergy Rash Verified 12/10/23 14:44 Assessment & Plan Assessment & Plan (1) Schizoaffective disorder, depressive type: Status: Acute Code(s): F25.1 - Schizoaffective disorder, depressive type (2) PTSD (post-traumatic stress disorder): Status: Acute Code(s): F43.10 - Post-traumatic stress disorder, unspecified (3) Cocaine use disorder: Status: Acute Code(s): F14.10 - Cocaine abuse, uncomplicated Plan Patient meets criteria for IP LOC for safety and stabilization. She states that Risperdal in the past has been helpful with her auditory hallucinations so I initiated 1 mg b.i.d. for now. Clonidine 0.1 mg t.i.d. p.r.n. ordered. She will meet with her treatment team on 12/14/23 12/13/2023: Continue current regimen and plans 12/14 Increased Risperdal since continued AH and in past on high dose of Zyprexa (15mg BID). 12/15 Patient reports that symptoms remain the same, auditory hallucinations continue, saying she is worthless, to hurt herself, that she has no right to live. -need history of medication trials; patient said 1 antipsychotic has worked in the past but she can not remember the name. -will change diagnosis to schizoaffective disorder as patient endorses auditory hallucinations even when depression is absent; denies history of manic type episodes/behaviors. -she agrees to maximizing Risperdal since she is already on it, to see if it can help while waiting for medication trial history. -patient says that Prozac has helped treat her depression in the past thinking she was on around 30 mg; agrees to add now 12/16: increase prozac to 20 mg daily, otherwise continue current mgmt. planning to return to [facility] in [place], [place]. reports no verbal AH for the past 3 days. 12/17: denies SI, states mood better. add cogentin 1 BID and benadryl 50 at HS for akathisia. 12/18: slept better last night with med changes. AH still just noise, SI comes and goes. continue current mgmt for now. 12/19 continue tx. 12/20 continue tx. Plan: -Increased to Risperdal 2mg BID -reSTart Prozac 10mg; she thinks home dose is 30mg gather collateral Reason for continued inpatient stay Substantial Risk for: stable for discharge Time Spent With Patient Time: Total time managing care of this patient today ____ minutes.
[2023-12-20 16:05] VITALS: BP 138/95
[2023-12-20] MEDS: cloNIDine HCL 0.1 MG TABLET PO (16:05)
[2023-12-20] MEDS: hydrOXYzine HCL 25 MG TABLET PO (16:05)
[2023-12-20] MEDS: diphenhydrAMINE HCL 25 MG CAPSULE 50 MG PO (21:00)
[2023-12-20] MEDS: Triamcinolone Acet 0.1 % Oint 15 GM TUBE 1 APPL TOPICAL (21:00)
[2023-12-21 07:15] VITALS: BP 118/74; PULSE 86; RESP 14; TEMP 35.7; O2SAT 98
[2023-12-21] MEDS: Nicotine Polacrilex Lozenge 4 MG LOZENGE BUCCAL (07:42)
[2023-12-21] MEDS: FLUoxetine HCl 20 MG CAPSULE PO (08:10)
[2023-12-21] MEDS: Benztropine Mesylate 1 MG TABLET PO ×2 (08:10→20:23)
[2023-12-21] MEDS: Nicotine 21 MG PATCH.TD24 TRANSDERMA (08:10)
[2023-12-21] MEDS: risperiDONE 2 MG TABLET PO ×2 (08:10→20:23)
[2023-12-21 09:50] VITALS: BP 169/104; PULSE 104
[2023-12-21] MEDS: cloNIDine HCL 0.1 MG TABLET PO (09:53)
[2023-12-21] MEDS: hydrOXYzine HCL 25 MG TABLET PO (09:53)
[2023-12-21 11:52] VITALS: BP 88/54; PULSE 65
--- NOTE | 2023-12-21 14:49 | P.PNPSI_ITS ---
Subjective Subjective Date of Service: 12/21/23 Reason For Visit: crisis, SI Interim History: calm, cooperative. mood up and down, SI coming and going. she reports that typically her SI is more persistent, so that the coming and going represents an improvement from her baseline. she states she feels ready for discharge. per staff, attending groups. visible, guarded. taking meds. endorsing SI. 06/08 anx/dep. slept 8 hours. per LAURA Smith, [facility] willing to take pt back post treaters' mtg, scheduled for tomorrow at noon. Mental Status Exam Mental Status Exam Narrative: alert, oriented and pleasant. Normal speech. good eye contact. Affect is constricted. SI coming and going. no HI/AVH expressed. mood up and down. Cognitively is grossly intact. Judgment is intact Diagnostics Vital Signs (24Hr): Vital Signs - 24 hr 12/20/23 16:05 12/21/23 07:15 12/21/23 09:50 Temperature 96.3 F L Pulse Rate 86 104 H Respiratory Rate 14 Blood Pressure 138/95 H 118/74 169/104 H Pulse Oximetry 98 Oxygen Delivery Method Room Air 12/21/23 11:52 Temperature Pulse Rate 65 Respiratory Rate Blood Pressure 88/54 L Pulse Oximetry Oxygen Delivery Method BMI result Body Mass Index 45.3 Labs 12/10/23 15:07 12/10/23 15:07 Medications Medications Current Medications Acetaminophen (Acetaminophen 325 Mg Tablet) 650 mg PO Q6H PRN PRN Reason: Headache/Pain Mild Scale (1-3) Al Hydroxide/Mg Hydroxide (Magnesium Hydrox/Alum Hydrox 30 Ml Oral.Susp) 30 ml PO Q6H PRN PRN Reason: Heartburn/Nausea Benztropine Mesylate (Benztropine Mesylate 1 Mg Tablet) 1 mg PO BID [facility] Last Admin: 12/21/23 08:10 Dose: 1 mg Clonidine HCl (Clonidine Hcl 0.1 Mg Tablet) 0.1 mg PO Q4H PRN; Protocol PRN Reason: anxiety/restlessness Last Admin: 12/21/23 09:53 Dose: 0.1 mg Diphenhydramine HCl (Diphenhydramine Hcl 25 Mg Capsule) 50 mg PO BEDTIME [facility] Last Admin: 12/20/23 21:00 Dose: 50 mg Fluoxetine HCl (Fluoxetine Hcl 20 Mg Capsule) 20 mg PO DAILY [facility] Last Admin: 12/21/23 08:10 Dose: 20 mg Hydroxyzine HCl (Hydroxyzine Hcl 25 Mg Tablet) 25 mg PO Q6H PRN PRN Reason: Anxiety Last Admin: 12/21/23 09:53 Dose: 25 mg Magnesium Hydroxide (Milk Of Magnesia 30 Ml Oral.Susp) 30 ml PO DAILY PRN PRN Reason: Constipation Nicotine (Nicotine 21 Mg Patch.Td24) 21 mg TRANSDERMA DAILY [facility] Last Admin: 12/21/23 08:10 Dose: 21 mg Nicotine Polacrilex (Nicotine Polacrilex Lozenge 4 Mg Lozenge) 4 mg BUCCAL Q1H PRN PRN Reason: Nicotine Cravings Last Admin: 12/21/23 07:42 Dose: 4 mg Risperidone (Risperidone 2 Mg Tablet) 2 mg PO BID [facility] Last Admin: 12/21/23 08:10 Dose: 2 mg Trazodone HCl (Trazodone Hcl 50 Mg Tablet) 50 mg PO BEDTIME MRX1 PRN PRN Reason: Insomnia Triamcinolone Acetonide (Triamcinolone Acet 0.1 % Oint 15 Gm Tube) 1 appl TOPICAL BID [facility] Last Admin: 12/21/23 08:13 Dose: Not Given Allergies Allergies Allergy/AdvReac Type Severity Reaction Status Date / Time alprazolam [From Xanax] Allergy Rash Verified 12/10/23 14:44 Assessment & Plan Assessment & Plan (1) Schizoaffective disorder, depressive type: Status: Acute Code(s): F25.1 - Schizoaffective disorder, depressive type (2) PTSD (post-traumatic stress disorder): Status: Acute Code(s): F43.10 - Post-traumatic stress disorder, unspecified (3) Cocaine use disorder: Status: Acute Code(s): F14.10 - Cocaine abuse, uncomplicated Plan Patient meets criteria for IP LOC for safety and stabilization. She states that Risperdal in the past has been helpful with her auditory hallucinations so I initiated 1 mg b.i.d. for now. Clonidine 0.1 mg t.i.d. p.r.n. ordered. She will meet with her treatment team on 12/14/23 12/13/2023: Continue current regimen and plans 12/14 Increased Risperdal since continued and in past on high dose of Zyprexa (15mg BID). 12/15 Patient reports that symptoms remain the same, auditory hallucinations continue, saying she is worthless, to hurt herself, that she has no right to live. -need history of medication trials; patient said 1 antipsychotic has worked in the past but she can not remember the name. -will change diagnosis to schizoaffective disorder as patient endorses auditory hallucinations even when depression is absent; denies history of manic type episodes/behaviors. -she agrees to maximizing Risperdal since she is already on it, to see if it can help while waiting for medication trial history. -patient says that Prozac has helped treat her depression in the past thinking she was on around 30 mg; agrees to add now 12/16: increase prozac to 20 mg daily, otherwise continue current mgmt. planning to return to [facility] in [place], [place]. reports no verbal AH for the past 3 days. 12/17: denies SI, states mood better. add cogentin 1 BID and benadryl 50 at HS for akathisia. 12/18: slept better last night with med changes. AH still just noise, SI comes and goes. continue current mgmt for now. 12/19 continue tx. 12/20 continue tx. 12/21: continue current mgmt. treaters' mtg tomorrow at noon. planning for discharge back to [facility] later this week. endorsing intermittent SI, indicates her baseline is persistent SI, feeling improved and ready for discharge. Plan: -Increased to Risperdal 2mg BID -reSTart Prozac 10mg; she thinks home dose is 30mg gather collateral Reason for continued inpatient stay Substantial Risk for: inability to function and rapid decompensation Time Spent With Patient Time: Total time managing care of this patient today _25___ minutes.
[2023-12-21 20:00] VITALS: BP 125/62; PULSE 85; RESP 16; TEMP 36.4; O2SAT 97
[2023-12-21] MEDS: diphenhydrAMINE HCL 25 MG CAPSULE 50 MG PO (20:22)
[2023-12-21] MEDS: Triamcinolone Acet 0.1 % Oint 15 GM TUBE 1 APPL TOPICAL (20:24)
[2023-12-22 08:00] VITALS: BP 108/55; PULSE 74; RESP 18; TEMP 36.3; O2SAT 97
[2023-12-22] MEDS: Benztropine Mesylate 1 MG TABLET PO ×2 (08:23→21:04)
[2023-12-22] MEDS: risperiDONE 2 MG TABLET PO ×2 (08:23→21:04)
[2023-12-22] MEDS: FLUoxetine HCl 20 MG CAPSULE PO (08:23)
[2023-12-22] MEDS: Triamcinolone Acet 0.1 % Oint 15 GM TUBE 1 APPL TOPICAL (08:24)
[2023-12-22] MEDS: Nicotine 21 MG PATCH.TD24 TRANSDERMA (08:53)
--- NOTE | 2023-12-22 13:10 | P.PNPSI_ITS ---
Subjective Subjective Date of Service: 12/22/23 Reason For Visit: crisis, SI Interim History: calm, cooperative. continues feeling improved from admission, interested in discharge to shelter. zoom call had with treaters and pt and LAURA Smith. plan made for DC. per staff, +AH ( noise ), taking meds. intermittent SI. clonidine PRN. slept about 8 hours. Mental Status Exam Mental Status Exam Narrative: alert, oriented and pleasant. Normal speech. good eye contact. Affect is full range and flexible. SI coming and going. +AH of noises. no HI/VH expressed. mood good. Cognitively is grossly intact. Judgment is intact Diagnostics Vital Signs (24Hr): Vital Signs - 24 hr 12/21/23 20:00 12/22/23 08:00 Temperature 97.6 F 97.4 F Pulse Rate 85 74 Respiratory Rate 16 18 Blood Pressure 125/62 108/55 L Pulse Oximetry 97 97 Oxygen Delivery Method Room Air Room Air BMI result Body Mass Index 45.3 Labs 12/10/23 15:07 12/10/23 15:07 Medications Medications Current Medications Acetaminophen (Acetaminophen 325 Mg Tablet) 650 mg PO Q6H PRN PRN Reason: Headache/Pain Mild Scale (1-3) Al Hydroxide/Mg Hydroxide (Magnesium Hydrox/Alum Hydrox 30 Ml Oral.Susp) 30 ml PO Q6H PRN PRN Reason: Heartburn/Nausea Benztropine Mesylate (Benztropine Mesylate 1 Mg Tablet) 1 mg PO BID [facility] Last Admin: 12/22/23 08:23 Dose: 1 mg Clonidine HCl (Clonidine Hcl 0.1 Mg Tablet) 0.1 mg PO Q4H PRN; Protocol PRN Reason: anxiety/restlessness Last Admin: 12/21/23 09:53 Dose: 0.1 mg Diphenhydramine HCl (Diphenhydramine Hcl 25 Mg Capsule) 50 mg PO BEDTIME [facility] Last Admin: 12/21/23 20:22 Dose: 50 mg Fluoxetine HCl (Fluoxetine Hcl 20 Mg Capsule) 20 mg PO DAILY [facility] Last Admin: 12/22/23 08:23 Dose: 20 mg Hydroxyzine HCl (Hydroxyzine Hcl 25 Mg Tablet) 25 mg PO Q6H PRN PRN Reason: Anxiety Last Admin: 12/21/23 09:53 Dose: 25 mg Magnesium Hydroxide (Milk Of Magnesia 30 Ml Oral.Susp) 30 ml PO DAILY PRN PRN Reason: Constipation Nicotine (Nicotine 21 Mg Patch.Td24) 21 mg TRANSDERMA DAILY [facility] Last Admin: 12/22/23 08:53 Dose: 21 mg Nicotine Polacrilex (Nicotine Polacrilex Lozenge 4 Mg Lozenge) 4 mg BUCCAL Q1H PRN PRN Reason: Nicotine Cravings Last Admin: 12/21/23 07:42 Dose: 4 mg Risperidone (Risperidone 2 Mg Tablet) 2 mg PO BID [facility] Last Admin: 12/22/23 08:23 Dose: 2 mg Trazodone HCl (Trazodone Hcl 50 Mg Tablet) 50 mg PO BEDTIME MRX1 PRN PRN Reason: Insomnia Triamcinolone Acetonide (Triamcinolone Acet 0.1 % Oint 15 Gm Tube) 1 appl TOPICAL BID [facility] Last Admin: 12/22/23 08:24 Dose: 1 appl Allergies Allergies Allergy/AdvReac Type Severity Reaction Status Date / Time alprazolam [From Xanax] Allergy Rash Verified 12/10/23 14:44 Assessment & Plan Assessment & Plan (1) Schizoaffective disorder, depressive type: Status: Acute Code(s): F25.1 - Schizoaffective disorder, depressive type (2) PTSD (post-traumatic stress disorder): Status: Acute Code(s): F43.10 - Post-traumatic stress disorder, unspecified (3) Cocaine use disorder: Status: Acute Code(s): F14.10 - Cocaine abuse, uncomplicated Plan Patient meets criteria for IP LOC for safety and stabilization. She states that Risperdal in the past has been helpful with her auditory hallucinations so I initiated 1 mg b.i.d. for now. Clonidine 0.1 mg t.i.d. p.r.n. ordered. She will meet with her treatment team on 12/14/23 12/13/2023: Continue current regimen and plans 12/14 Increased Risperdal since continued and in past on high dose of Zyprexa (15mg BID). 12/15 Patient reports that symptoms remain the same, auditory hallucinations continue, saying she is worthless, to hurt herself, that she has no right to live. -need history of medication trials; patient said 1 antipsychotic has worked in the past but she can not remember the name. -will change diagnosis to schizoaffective disorder as patient endorses auditory hallucinations even when depression is absent; denies history of manic type episodes/behaviors. -she agrees to maximizing Risperdal since she is already on it, to see if it can help while waiting for medication trial history. -patient says that Prozac has helped treat her depression in the past thinking she was on around 30 mg; agrees to add now 12/16: increase prozac to 20 mg daily, otherwise continue current mgmt. planning to return to shelter in [place], [place]. reports no verbal AH for the past 3 days. 12/17: denies SI, states mood better. add cogentin 1 BID and benadryl 50 at HS for akathisia. 12/18: slept better last night with med changes. AH still just noise, SI comes and goes. continue current mgmt for now. 12/19 continue tx. 12/20 continue tx. 12/21: continue current mgmt. treaters' mtg tomorrow at noon. planning for discharge back to shelter later this week. endorsing intermittent SI, indicates her baseline is persistent SI, feeling improved and ready for discharge. 12/22: stable, condition as per yesterday. meeting held with treaters and SW. planning for DC . Plan: -Increased to Risperdal 2mg BID -reSTart Prozac 10mg; she thinks home dose is 30mg gather collateral Reason for continued inpatient stay Substantial Risk for: harm to self, inability to function and rapid decompensation Time Spent With Patient Time: Total time managing care of this patient today __35__ minutes.
[2023-12-22 19:35] VITALS: BP 108/56; PULSE 75; RESP 20; TEMP 36.3; O2SAT 97
[2023-12-22] MEDS: diphenhydrAMINE HCL 25 MG CAPSULE 50 MG PO (21:04)
[2023-12-23 06:00] VITALS: BP 129/58; PULSE 101; RESP 18; TEMP 36.7; O2SAT 97
[2023-12-23] MEDS: Benztropine Mesylate 1 MG TABLET PO ×2 (08:19→20:39)
[2023-12-23] MEDS: risperiDONE 2 MG TABLET PO ×2 (08:19→20:39)
[2023-12-23] MEDS: Nicotine 21 MG PATCH.TD24 TRANSDERMA (08:19)
[2023-12-23] MEDS: FLUoxetine HCl 20 MG CAPSULE PO (08:19)
--- NOTE | 2023-12-23 08:59 | HO.PSYCHPN ---
Subjective Subjective Date of Service: 12/23/23 Reason For Visit: crisis, SI Subjective Notes: Conditional Voluntary Interim History: Reviewed with . Keeping to self. guarded. observed sitting in common area. pt reports feeling good today; pt stated, I'm going to go back to my correction tomorrow . She reports sleeping well. Medication Compliance: Yes Attending Groups: No Review of Systems Constitutional: Reports as per HPI Eyes: Reports as per HPI Reports as per HPI Cardiovascular: Reports as per HPI Respiratory: Reports as per HPI Gastrointestinal: Reports as per HPI Genitourinary: Reports as per HPI Musculoskeletal: Reports as per HPI Skin/Breast: Reports as per HPI Reports as per HPI Psychiatric: Reports as per HPI Endocrine: Reports as per HPI Hematologic/Lymphatic: Reports as per HPI Allergic/Immunologic: Reports as per HPI Mental Status Exam Mental Status Exam Narrative: Pt is alert and oriented; behavior is guarded; mood is described as good ; eye contact appropriate; Speech is normal rate, volume and prosody and not pressured; focused on discharge; denies SI/HI/AH/VH. Diagnostics Vital Signs (24Hr): Vital Signs - 24 hr 12/22/23 19:35 12/23/23 06:00 Temperature 97.4 F 98.1 F Pulse Rate 75 101 H Respiratory Rate 20 18 Blood Pressure 108/56 L 129/58 L Pulse Oximetry 97 97 Oxygen Delivery Method Room Air Room Air BMI result Body Mass Index 45.3 Labs 12/10/23 15:07 12/10/23 15:07 Medications Medications Current Medications Acetaminophen (Acetaminophen 325 Mg Tablet) 650 mg PO Q6H PRN PRN Reason: Headache/Pain Mild Scale (1-3) Al Hydroxide/Mg Hydroxide (Magnesium Hydrox/Alum Hydrox 30 Ml Oral.Susp) 30 ml PO Q6H PRN PRN Reason: Heartburn/Nausea Benztropine Mesylate (Benztropine Mesylate 1 Mg Tablet) 1 mg PO BID [facility] Last Admin: 12/23/23 08:19 Dose: 1 mg Clonidine HCl (Clonidine Hcl 0.1 Mg Tablet) 0.1 mg PO Q4H PRN; Protocol PRN Reason: anxiety/restlessness Last Admin: 12/21/23 09:53 Dose: 0.1 mg Diphenhydramine HCl (Diphenhydramine Hcl 25 Mg Capsule) 50 mg PO BEDTIME [facility] Last Admin: 12/22/23 21:04 Dose: 50 mg Fluoxetine HCl (Fluoxetine Hcl 20 Mg Capsule) 20 mg PO DAILY [facility] Last Admin: 12/23/23 08:19 Dose: 20 mg Hydroxyzine HCl (Hydroxyzine Hcl 25 Mg Tablet) 25 mg PO Q6H PRN PRN Reason: Anxiety Last Admin: 12/21/23 09:53 Dose: 25 mg Magnesium Hydroxide (Milk Of Magnesia 30 Ml Oral.Susp) 30 ml PO DAILY PRN PRN Reason: Constipation Nicotine (Nicotine 21 Mg Patch.Td24) 21 mg TRANSDERMA DAILY [facility] Last Admin: 12/23/23 08:19 Dose: 21 mg Nicotine Polacrilex (Nicotine Polacrilex Lozenge 4 Mg Lozenge) 4 mg BUCCAL Q1H PRN PRN Reason: Nicotine Cravings Last Admin: 12/21/23 07:42 Dose: 4 mg Risperidone (Risperidone 2 Mg Tablet) 2 mg PO BID [facility] Last Admin: 12/23/23 08:19 Dose: 2 mg Trazodone HCl (Trazodone Hcl 50 Mg Tablet) 50 mg PO BEDTIME MRX1 PRN PRN Reason: Insomnia Triamcinolone Acetonide (Triamcinolone Acet 0.1 % Oint 15 Gm Tube) 1 appl TOPICAL BID [facility] Last Admin: 12/23/23 08:21 Dose: Not Given Allergies Allergies Allergy/AdvReac Type Severity Reaction Status Date / Time alprazolam [From Xanax] Allergy Rash Verified 12/10/23 14:44 Assessment & Plan Assessment & Plan (1) Schizoaffective disorder, depressive type: Status: Acute Code(s): F25.1 - Schizoaffective disorder, depressive type (2) PTSD (post-traumatic stress disorder): Status: Acute Code(s): F43.10 - Post-traumatic stress disorder, unspecified (3) Cocaine use disorder: Status: Acute Code(s): F14.10 - Cocaine abuse, uncomplicated Plan Patient meets criteria for IP LOC for safety and stabilization. She states that Risperdal in the past has been helpful with her auditory hallucinations so I initiated 1 mg b.i.d. for now. Clonidine 0.1 mg t.i.d. p.r.n. ordered. She will meet with her treatment team on 12/14/23 12/13/2023: Continue current regimen and plans 12/14 Increased Risperdal since continued AH and in past on high dose of Zyprexa (15mg BID). 12/15 Patient reports that symptoms remain the same, auditory hallucinations continue, saying she is worthless, to hurt herself, that she has no right to live. -need history of medication trials; patient said 1 antipsychotic has worked in the past but she can not remember the name. -will change diagnosis to schizoaffective disorder as patient endorses auditory hallucinations even when depression is absent; denies history of manic type episodes/behaviors. -she agrees to maximizing Risperdal since she is already on it, to see if it can help while waiting for medication trial history. -patient says that Prozac has helped treat her depression in the past thinking she was on around 30 mg; agrees to add now 12/16: increase prozac to 20 mg daily, otherwise continue current mgmt. planning to return to [facility] in [place], [place]. reports no verbal AH for the past 3 days. 12/17: denies SI, states mood better. add cogentin 1 BID and benadryl 50 at HS for akathisia. 12/18: slept better last night with med changes. AH still just noise, SI comes and goes. continue current mgmt for now. 12/19 continue tx. 12/20 continue tx. 12/21: continue current mgmt. treaters' mtg tomorrow at noon. planning for discharge back to [facility] later this week. endorsing intermittent SI, indicates her baseline is persistent SI, feeling improved and ready for discharge. 12/22: stable, condition as per yesterday. meeting held with treaters and SW. planning for DC . 12/23: continue current tx plan. Plan: -Increased to Risperdal 2mg BID -reSTart Prozac 10mg; she thinks home dose is 30mg gather collateral Reason for continued inpatient stay Substantial Risk for: med/psych decompensation Time Spent With Patient Time: Total time managing care of this patient today ____ minutes.
[2023-12-23] MEDS: Nicotine Polacrilex Lozenge 4 MG LOZENGE BUCCAL (10:03)
[2023-12-23] MEDS: cloNIDine HCL 0.1 MG TABLET PO (12:11)
[2023-12-23] MEDS: hydrOXYzine HCL 25 MG TABLET PO (12:11)
[2023-12-23 12:17] VITALS: BP 137/97; PULSE 115; RESP 18
[2023-12-23 20:05] VITALS: BP 92/51; PULSE 77; RESP 20; TEMP 36.4; O2SAT 97
[2023-12-23] MEDS: diphenhydrAMINE HCL 25 MG CAPSULE 50 MG PO (20:39)
[2023-12-23] MEDS: Triamcinolone Acet 0.1 % Oint 15 GM TUBE 1 APPL TOPICAL (20:39)
--- NOTE | 2023-12-23 22:49 | PC.NURSE ---
Nicolas is noted to be isolating in her room throughout the evening. her affect is flat but brightens upon approach. she denies depression/anxiety, auditory/visual hallucinations and suicidal/homicidal ideation. patient states she is looking forward to D/C on 12/24/23. continue to monitor for safety, continue Plan of Care
[2023-12-24] MEDS: Nicotine Polacrilex Lozenge 4 MG LOZENGE BUCCAL ×2 (05:55→10:26)
[2023-12-24] MEDS: Nicotine 21 MG PATCH.TD24 TRANSDERMA (08:53)
[2023-12-24] MEDS: risperiDONE 2 MG TABLET PO (08:54)
[2023-12-24] MEDS: Benztropine Mesylate 1 MG TABLET PO (08:54)
[2023-12-24] MEDS: FLUoxetine HCl 20 MG CAPSULE PO (08:54)
--- NOTE | 2023-12-24 09:38 | P.DS_ITS ---
DS: Providers Provider Date of Service: 12/24/23 Date of admission: 12/11/23 15:54 Primary care physician: None Physician DS: Diagnosis Discharge Diagnosis (1) Schizoaffective disorder, depressive type: Status: Acute (2) PTSD (post-traumatic stress disorder): Status: Acute (3) Cocaine use disorder: Status: Acute DS: Medications Discharge Medications Home Medications: Home Medications Medication Instructions Recorded Confirmed No Known Home Meds 12/10/23 12/10/23 Previous Rx's Medication Instructions Recorded benztropine 1 mg tablet 1 mg PO BID 30 days #60 tabs 12/23/23 diphenhydramine HCl 25 mg capsule 50 mg (2 x 25 mg) PO BEDTIME 30 12/23/23 days #60 caps fluoxetine 20 mg capsule 20 mg PO DAILY 30 days #30 caps 12/23/23 hydroxyzine HCl 25 mg tablet 25 mg PO BID PRN Anxiety 30 days 12/23/23 #60 tabs nicotine (polacrilex) 4 mg buccal 4 mg buccal Q1H PRN Nicotine 12/23/23 lozenge Cravings 30 days #108 ea nicotine 21 mg/24 hr daily 21 mg transdermal DAILY 28 days 12/23/23 transdermal patch #28 ea risperidone 2 mg tablet 2 mg PO BID 30 days #60 tabs 12/23/23 triamcinolone acetonide 0.1 % 1 appl topical BID 30 days #30 12/23/23 topical ointment grams Mental Status Exam Mental Status Exam Narrative: alert, oriented and pleasant. Normal speech. good eye contact. Affect is full range and flexible. denies SI/SIBI/HI/AVH. mood good. Cognitively is grossly intact. Judgment is intact DS: Summary Hospital Course Hospital Course: per 12/12/23 admission note: Nicolas is a 38-year-old white, single woman with history of mood disorder with psychotic features, PTSD, suicide attempts. Information was primarily obtained from the patient who is a very poor historian and the crisis evaluation. This is 1 of numerous psychiatric hospitalizations. She was last hospitalized about a month ago. She was living in [facility] home in [place] however she left on her own and has been staying with friends. She states that she has been having suicidal ideations of overdosing on pills, had plans to get a gun from a friend and to kill her sister. She does not have access to guns readily. She has had 3 suicide attempts in the past with overdoses and last 1 was about ?a year ago?. Recently she lost a sister to suicide. She has not been taking any medications for at least a month or more, not going to any clinics or appointments. No current or recent substance use or abuse. Past Psychiatric History: IP: Reports in pt for approx the past two months. OP: None currently. Hx Narinder Roth [phone] Meds: Suboxone 8-2, 2 a.m. 1 p.m. Clonidine 0.1 mg prn q3h Gabapentin 600 mg tid Trazodone 50 mg hs prn Narcan prn SA: Age 31 via OD, 10/2021 via OD SIBS: Hx cutting Hx of agitation when in treatment Medical Evaluation Reviewed: Yes [facility] Medical History Polysubstance abuse Mood disorder with psychosis PTSD (post-traumatic stress disorder) Chronic active hepatitis Hepatitis C antibody positive in blood History of drug abuse Obesity Hep C w/ coma, chronic Family History: Schizophrenia, Depression Mother had admissions to the [facility] Social History: Born in [place]. Raised in [place] High school graduate Unemployed, Homeless, however reports she lives with father, grandmother. Legal: Hx of arrest for neal Substance History: She denies any recent use or abuse and history was unobtainable because she left during the interview Trauma History: Affirms Precis: Patient meets criteria for IP LOC for safety and stabilization. She states that Risperdal in the past has been helpful with her auditory hallucinations so I initiated 1 mg b.i.d. for now. Clonidine 0.1 mg t.i.d. p.r.n. ordered. She will meet with her treatment team on 12/14/23 12/13/2023: Continue current regimen and plans 12/14 Increased Risperdal since continued AH and in past on high dose of Zyprexa (15mg BID). 12/15 Patient reports that symptoms remain the same, auditory hallucinations continue, saying she is worthless, to hurt herself, that she has no right to live. -need history of medication trials; patient said 1 antipsychotic has worked in the past but she can not remember the name. -will change diagnosis to schizoaffective disorder as patient endorses auditory hallucinations even when depression is absent; denies history of manic type episodes/behaviors. -she agrees to maximizing Risperdal since she is already on it, to see if it can help while waiting for medication trial history. -patient says that Prozac has helped treat her depression in the past thinking she was on around 30 mg; agrees to add now 12/16: increase prozac to 20 mg daily, otherwise continue current mgmt. jose r brown to return to custodial in [place], [place]. reports no verbal AH for the past 3 days. 12/17: denies SI, states mood better. add cogentin 1 BID and benadryl 50 at HS for akathisia. 12/18: slept better last night with med changes. AH still just noise, SI comes and goes. continue current mgmt for now. 12/19 continue tx. 12/20 continue tx. 12/21: continue current mgmt. treaters' mtg tomorrow at noon. planning for discharge back to custodial later this week. endorsing intermittent SI, indicates her baseline is persistent SI, feeling improved and ready for discharge. 12/22: stable, condition as per yesterday. meeting held with treaters and SW. planning for DC . 12/23: continue current tx plan. 12/24: denying any safety concerns or psychotic Sx. stable. discharged to custodial via lyft as per plan. Time Spent with Patient Time attestation: Total time managing care of this patient today ____ minutes. Time spent: Greater than 30 minutes Discharge Plan Discharge Anticipated Discharge Date/Time: 12/24/23 11:00 Patient Disposition: Home, Self-Care Discharge Diagnosis: Schizoaffective Disorder, Depressive Type PTSD, Chronic Cocaine Use Disorder Referrals: Treasure Kulkarni (Psychiatry) [Other] - 01/11/24 1:30 pm (TELEHEALTH APPOINTMENT) [facility] [Provider Group] - 1 Week Discharge Medications: New diphenhydramine HCl 25 mg Capsule 50 mg PO BEDTIME 30 Days Qty: 60 0RF nicotine 21 mg/24 hr Patch 24 Hour 21 mg transdermal DAILY 28 Days Qty: 28 0RF nicotine (polacrilex) 4 mg Lozenge 4 mg buccal Q1H PRN (Reason: Nicotine Cravings) 30 Days Qty: 108 0RF risperidone 2 mg Tablet 2 mg PO BID 30 Days Qty: 60 0RF triamcinolone acetonide 0.1 % Ointment 1 appl topical BID 30 Days Qty: 30 0RF benztropine 1 mg Tablet 1 mg PO BID 30 Days Qty: 60 0RF fluoxetine 20 mg Capsule 20 mg PO DAILY 30 Days Qty: 30 0RF hydroxyzine HCl 25 mg Tablet 25 mg PO BID PRN (Reason: Anxiety) 30 Days Qty: 60 0RF No Action No Known Home Meds Discharge Orders: Discharge Order (Routine); Ordered 12/24/23 Ordered By: Jared Ball Diet: Advance to usual diet Activity on Discharge: As tolerated Stand Alone Forms: Patient Portal Discharge page, Community Support Care Plan Goals: remain safe, stable, and sober in the outpatient treatment setting Health Concerns: none Plan of Treatment: take medications as prescribed, attend appointments as scheduled Assessment: not at imminent risk of harm to self or others Discharge Date/Time: 12/24/23 11:15
[2023-12-24 11:44] VITALS: BP 114/64; PULSE 92; TEMP 36.4; O2SAT 97
== END 2023-12-24 11:15 | disposition home or self-care (01) | DRG 750 ==
LOC: HO.ED 16:04 → HO.PADLT16 12-11 17:32
PROVIDERS: Admitting Provider Registered Nurse; Emergency Provider Student in an Organized Health Care Education/Training Program; Visit Provider Psychiatry & Neurology Psychiatry
DX: F25.1 Schizoaffective disorder, depressive type (principal); R45.851 Suicidal ideations; F19.10 Other psychoactive substance abuse, uncomplicated; F14.10 Cocaine abuse, uncomplicated; F43.10 Post-traumatic stress disorder, unspecified; Z20.822 Contact with and (suspected) exposure to COVID-19; Z91.51 Personal history of suicidal behavior; Z79.899 Other long term (current) drug therapy
CPT/HCPCS: 36415; 80053; 80143; 80179; 80307; 81001; 85025; 87635; 99285; S9485

== ENCOUNTER → 2023-12-11 15:54 | Outpatient (BNV) | payer OTHER, SELFPAY | PROVIDERS: Admitting Provider Registered Nurse; Emergency Provider Student in an Organized Health Care Education/Training Program; Visit Provider Psychiatry & Neurology Psychiatry | DX: F25.1 Schizoaffective disorder, depressive type (principal); F14.10 Cocaine abuse, uncomplicated; F43.11 Post-traumatic stress disorder, acute | CPT/HCPCS: 90792; 99231; 99232; 99239 ==